=== PATIENT | male | born 1945 | race Caucasian/White ===

== ENCOUNTER → 2016-04-26 | Outpatient (CLI) | payer OTHER ==
[2016-04-26 11:07] LABS: Blood Urea Nitrogen 15 mg/dL (9-20); Non-African American GFR(MDRD) >60 (>60 ml/min/1.73 sqM)
--- NOTE | 2016-04-26 13:48 | CT ---
EXAMINATION TYPE: CT chest abdomen w con DATE OF EXAM: 04/26/2016 11:57 AM COMPARISON: Outside chest CT July 07, 2015. Older CTs back to November 29, 2012. HISTORY: Follow up radiation treatment per patient for lung cancer. CT DLP: 634 mGycm. Automated Exposure Control for Dose Reduction was Utilized. CONTRAST: CT scan of the thorax and abdomen are performed with oral and with IV Contrast, patient injected with 100 mL of Omnipaque 300. FINDINGS: LUNGS: Mild to moderate apical scarring and pleural thickening bilaterally is redemonstrated. There i s background of mild emphysematous change seen. Scarlike opacity or nodule is redemonstrated right up per to midlung measuring 2.4 x 1.3 cm on current study image 28 not significantly changed from most r ecent chest CT and more prominent from original 2013 CT. No new parenchymal nodule or mass is present bilaterally. No pleural effusion or pneumothorax is seen. Tracheobronchial tree is patent. MEDIASTINUM: There are no greater than 1 cm hilar or mediastinal lymph nodes. No cardiomegaly or pe ricardial effusion is seen. Mild to moderate mixed plaque in the thoracic aorta is redemonstrated. M ore prominent concentric noncalcified plaque at origin of right brachiocephalic artery is stable caus ing stenosis approaching but under 50% OTHER: No additional significant abnormality is seen. LIVER/GB: There is stable 1.1 cm cyst hepatic dome on axial image 55. Additional smaller cysts and mcmahon bcentimeter lesions are stable and presumed benign. PANCREAS: No significant abnormality is seen. SPLEEN: No significant abnormality is seen. ADRENALS: No significant abnormality is seen. KIDNEYS: Prominent retroperitoneal fat is noted. Mild nonspecific perinephric fat stranding or fluid is seen, favor product of chronic medical renal disease. BOWEL: Small hiatal hernia is noted. LYMPH NODES: No greater than 1cm abdominal lymph nodes are appreciated. OSSEOUS STRUCTURES: No significant abnormality is seen. OTHER: No significant additional abnormality is seen. IMPRESSION: Spiculated nodular opacity right midlung is felt unchanged from most recent outside chest CT. No new mass or adenopathy is noted. RECIST CRITERIA: STABLE DISEASE
== END ==
LOC: RADCTMAIN 10:24
PROVIDERS: ATTEND Radiology Radiation Oncology
DX: C34.11 Malignant neoplasm of upper lobe, right bronchus or lung (principal)
CPT/HCPCS: 82565; 84520; 71260; 74160; 36415; Q9967

== ENCOUNTER 2016-07-15 10:01 | Day surgery (SDC) | payer OTHER ==
[2016-07-12 08:40] VITALS: BMI 24.7
[~2016-07-15 10:01] MED LIST: ACETAMINOPHEN TAB 500 MG TAB PO ONE; DEXAMETHASONE SOD PHOSPHATE 10 MG/ML 1 ML VIAL IV ONE; DEXAMETHASONE SOD PHOSPHATE 4 MG/ML 1 ML VIAL IV ONE; FAMOTIDINE 20 MG/2 ML VIAL IV ONE; HYDROmorphone 1 MG/ML 1 ML SYRINGE IVP PRN; LACTATED RINGERS 1,000 ML IV SCH; LIDOCAINE 1% 20 ML VIAL (10MG/ML) FOR IV START INTRADERMA PRN; MIDAZOLAM 2 MG/2 ML VIAL IV PRN; ONDANSETRON 4 MG/2 ML VIAL IVP ONE; SCOPOLAMINE 1.5MG/72HR PATCH TRANSDERM ONE; ceFAZolin 1,000 MG in DEXTROSE/WATER 1 50ML.BAG IV ONE
[2016-07-15] MEDS ORDERED: LACTATED RINGERS 1,000 ML IV ONE ×3 (10:49→14:01)
[2016-07-15 11:16] LABS: INR 1.2 (<1.1); Prothrombin Time 11.5 sec (9.0-12.0)
[2016-07-15] MEDS ORDERED: LIDOCAINE 1% INJ 10MG/ML (20 ML MDV) ONE (12:42)
[2016-07-15] MEDS ORDERED: fentaNYL (PF) 50 MCG/ML 2 ML AMP ONE (12:42)
[2016-07-15] MEDS ORDERED: PHENYLEPHRINE-0.9% NACL SYG 1 MG/10 ML SYRINGE ONE (12:42)
[2016-07-15] MEDS ORDERED: PROPOFOL 10 MG/ML 20 ML VIAL IV ONE (12:42)
[2016-07-15] MEDS ORDERED: MIDAZOLAM 2 MG/2 ML VIAL ONE (12:42)
[2016-07-15] MEDS ORDERED: ePHEDrine 50 MG/ML 1 ML AMP ONE (12:42)
[2016-07-15] MEDS ORDERED: EPINEPHrine 1 MG/ML (MDV) 30 ML VIAL IRRIGATION ONE (13:21)
[2016-07-15] MEDS ORDERED: LIDOCAINE 1%-EPI 1:100,000 20 ML VIAL SQ ONE ×2 (13:21)
[2016-07-15] MEDS ORDERED: BUPIVACAIN-EPI 0.5%-1:200,000 30 ML VIAL SQ ONE ×2 (13:21)
[2016-07-15] MEDS ORDERED: FLUORESCEIN STRIPS 1 MG STRIP MISCELLANE ONE (13:22)
[2016-07-15 14:18] VITALS: RESP 16; TEMP 98
--- NOTE | 2016-07-15 14:32 | P.OP ---
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 Implants: Anesthesia: GETA Surgeon: Nitin Lopez Estimated Blood Loss (ml): 5 Pathology: none sent Condition: stable Disposition: PACU Indications for Procedure: This patient had a laryngectomy and had a tracheoesophageal fistula produced with a voice prosthesis that he has not been using. He's been relying on esophageal speech which has worked well for him. This patient has a very large prosthesis and placed its chronically leaking any is aspirating and would like to have the prosthesis removed and the fistula closed. All risks, benefits, and alternative therapies were discussed in detail. Consent was obtained and all questions were answered. Operative Findings: Infected prosthesis removed with a large amount of granulation tissue. Patient had a very large fistula that was closed in a multilayered closure with use of an AlloDerm graft Description of Procedure: Patient was taken to the operative room and placed in the supine position. The patient was intubated through the tracheal stoma with a #5 TAP OUT OPERATOR tube. We did a sterile prep and drape to his neck and identified a very large indwelling prosthesis that had a large amount of granulation tissue. We removed the prosthesis and we also removed the granulation tissue. This allowed us to visualize the very large tracheal esophageal fistula that the patient has. We made a vertical incision encompassing the fistula and elevated flaps and multilayered fashion we elevated mucosal flaps from the trachea tracheal cartilage and then mucosal flaps from the esophagus. After we did wide undermining all directions and flaps were elevated we closed the esophageal mucosa and a canal stitch fashion. After the closure was accomplished a very tight mucosal seal was identified. We then placed a tie buyer design allograft between the mucosa and the cartilage. We closed the overlying tracheal mucosa in an interrupted type fashion utilizing 5 and 4-0 Vicryl. The bilateral mucosal flaps were rotated into position her very good closure and a very tight seal was obtained. We did utilized FloSeal for hemostasis. The patient tolerated this well and follow-up will be in the office in 1 week. The patient is to be on a pured diet. He is to rest with his head elevated.
[2016-07-15 15:38] VITALS: BP 122/68; PULSE 91
== END 2016-07-15 16:11 | disposition home or self-care (01) ==
LOC: OR 10:01
PROVIDERS: ATTEND Otolaryngology
DX: J95.02 Infection of tracheostomy stoma (principal); I10 Essential (primary) hypertension; I48.91 Unspecified atrial fibrillation; Z79.01 Long term (current) use of anticoagulants; Z79.899 Other long term (current) drug therapy; Z87.891 Personal history of nicotine dependence; Z85.118 Personal history of other malignant neoplasm of bronchus and lung
CPT/HCPCS: 85610; 31825; C1762; C1763; J0171; J2250; J1100; J2405; J2001; J3010; J0690; J2370; J2704

== ENCOUNTER → 2016-07-28 | Outpatient (CLI) | payer OTHER ==
[2016-07-28 11:35] LABS: Blood Urea Nitrogen 27 mg/dL (9-20); Non-African American GFR(MDRD) >60 (>60 ml/min/1.73 sqM)
--- NOTE | 2016-07-28 12:22 | CT ---
EXAMINATION TYPE: CT chest w con DATE OF EXAM: 07/28/2016 COMPARISON: Previous study dated 04/26/2016 HISTORY: Follow up on lung cancer CT DLP: 621 mGycm Automated exposure control for dose reduction was used. CONTRAST: CT scan of the chest is performed with IV Contrast, patient injected with 100 mL of Omnipaque 300. FINDINGS: Spiculated mass in the posterior segment of the right upper lobe previously measured 2.4 x 1.3 cm. Today measures 2.4 x 1.8 cm. There are additional areas of spiculation in the superior segmen t of the right lower lobe. These were not present previously. The largest measures 1.2 x 2 cm. The le ft-sided lesion is seen. There is no significant axillary, mediastinal or hilar adenopathy. There is no pleural or pericardial fluid. The heart is not enlarged. There are coronary artery and other vascular calcifications. There are multiple cystic lesions within the liver. These appear unchanged. Visualized portions of th e upper abdomen appear otherwise normal. There is hypertrophic spondylosis within the spine. IMPRESSION: 1. SLIGHT CHANGE IN MORPHOLOGY OF THE PATIENT'S SPICULATED MASS IN THE POSTERIOR SEGMENT OF THE RIGHT UPPER LOBE WITHOUT SIGNIFICANT INCREASE IN SIZE. 2. NEW SPICULATED DENSITY IN THE SUPERIOR SEGMENT OF THE RIGHT LOWER LOBE. 3. MULTIPLE CYSTIC APPEARING LESIONS WITHIN THE LIVER. THESE COULD BE CONFIRMED WITH ULTRASOUND.
== END | disposition home or self-care (01) ==
LOC: RADCTMAIN 10:59
PROVIDERS: ATTEND Radiology Radiation Oncology
DX: R91.8 Other nonspecific abnormal finding of lung field (principal); J98.4 Other disorders of lung; C34.11 Malignant neoplasm of upper lobe, right bronchus or lung
CPT/HCPCS: 82565; 84520; 71260; 36415; Q9967

== ENCOUNTER → 2016-09-11 | Outpatient (CLI) | payer OTHER ==
--- NOTE | 2016-09-13 08:37 | PE ---
EXAMINATION TYPE: PET CT fusion skull to thigh DATE OF EXAM: 09/11/2016 COMPARISON: Most recent PET/CT January 03, 2016. Recent CT chest 03/30/2016. Recent CT chest and abdom en April 26, 2016. HISTORY: Right-sided Lung cancer progress study after biopsy 2015, completed radiation treatment 2016 . TECHNIQUE: Following the intravenous administration of 14.03 mCi of F-18 FDG, whole body images are performed from the skull base to the midthigh. Images are reviewed on the computer in the coronal, a xial, and sagittal planes. Reconstructed rotating images are created on independent workstation and reviewed on the computer. A localization and attenuation correction CT is performed in conjunction with the PET scan. SCAN: Subsequent Scan FINDINGS: SKULL BASE AND NECK: No new suspicious hypermetabolic uptake is seen in the neck. CHEST, MEDIASTINUM, AND HILAR REGION: There is more diffuse irregular consolidation in the right midl li extending from hilum to periphery with new tiny pleural fluid collection, no abnormal hypermetabo lic uptake is seen currently. Focus of abnormal hypermetabolic uptake at site of total laryngectomy and neopharynx formation on axi al image 57 is stable presumed postsurgical. ABDOMEN AND PELVIS: No new areas of abnormal hypermetabolic uptake is seen in the abdomen or pelvis. OSSEOUS STRUCTURES: No suspicious hypermetabolic uptake is seen in osseous structures. OTHER CT: Rightward nasal septal deviation is redemonstrated. There is moderate calcified plaque in bilateral carotid bulbs redemonstrated. There is background mild to moderate emphysematous change redemonstrated. Coronary artery calcification is again seen which is noted marker for coronary artery disease. There is moderate calcified plaque in the ascending aorta redemonstrated. There is 1 cm simple hepatic cyst anterior hepatic dome on axial image 115 redemonstrated. A similar lesion is redemonstrated posterior segment right hepatic lobe inferiorly on axial image 146. Nonspecific perinephric fat stranding is redemonstrated presumed product of chronic medical renal dis ease. Prostate gland remains mildly enlarged bulging on bladder base suspicious for BPH. There is moderate to severe calcified atherosclerotic change of the abdominal aorta redemonstrated. T here is densely calcified plaque at right common femoral artery redemonstrated near axial image 225. There is redemonstration of moderate sized fat-containing left inguinal hernia. Multilevel spurring in the spine is again seen. IMPRESSION: Increased consolidation without suspicious hypermetabolic uptake is seen currently in the right midlung presumed to reflect product of treatment change including atelectasis, underlying infi ltrate is not excluded. No residual hypermetabolic tumor or metastatic disease is clearly seen on cur rent study.
== END | disposition home or self-care (01) ==
LOC: RADPETMAIN 11:14
PROVIDERS: ATTEND Radiology Radiation Oncology
DX: C34.11 Malignant neoplasm of upper lobe, right bronchus or lung (principal)
CPT/HCPCS: 78815; A9552

== ENCOUNTER → 2017-03-14 | Outpatient (CLI) | payer OTHER ==
[2017-03-14 11:24] LABS: Blood Urea Nitrogen 15 mg/dL (9-20)
--- NOTE | 2017-03-14 12:41 | CT ---
EXAMINATION TYPE: CT chest w con DATE OF EXAM: 03/14/2017 COMPARISON: Prior chest CT 11/15/2016 HISTORY: Lung cancer CT DLP: 259.30 mGycm Automated exposure control for dose reduction was used. CONTRAST: CT scan of the chest is performed with IV Contrast, patient injected with 100 ml mL of Omnipaque 300. FINDINGS: LUNGS: The abnormal attenuation in the right upper lobe with pleural extension laterally as on prior exam is again noted and shows a similar appearance. No endobronchial lesion, pleural or pericardial e ffusion. No additional lung mass evident. No mediastinal, axillary, or hilar adenopathy. Tracheostomy is present with a similar appearance to prior exam. The proximal right common carotid artery stenosi s, atheromatous change is stable. Coronary artery calcifications are present. Upper abdomen shows a s table appearance. Suspect a small hiatal hernia is present. MEDIASTINUM: There are no greater than 1 cm hilar or mediastinal lymph nodes. No pericardial effusi on is seen. AORTA: No additional significant abnormality is seen. OTHER: No additional significant abnormality is seen. IMPRESSION: Essentially stable posttreatment changes.
== END | disposition home or self-care (01) ==
LOC: RADCTMAIN 10:44
PROVIDERS: ATTEND Radiology Radiation Oncology
DX: C34.11 Malignant neoplasm of upper lobe, right bronchus or lung (principal)
CPT/HCPCS: 82565; 84520; 71260; 36415; Q9967

== ENCOUNTER → 2017-04-27 | Outpatient (CLI) | payer OTHER | END | disposition home or self-care (01) | LOC: RADUSWWP 08:50 | PROVIDERS: ATTEND Family Medicine | DX: I73.9 Peripheral vascular disease, unspecified (principal) | CPT/HCPCS: 93923 ==

== ENCOUNTER → 2017-06-13 | Outpatient (CLI) | payer OTHER ==
--- NOTE | 2017-06-13 11:33 | CT ---
EXAMINATION TYPE: CT chest w con DATE OF EXAM: 06/13/2017 COMPARISON: 03/14/2017 and 11/15/2016 HISTORY: 72-year-old male Follow up to Rt upper lobe lung Cancer TECHNIQUE: Contiguous axial scanning of the chest after the administration of 100 mL of Isovue 300. Coronal/sagittal reconstructions performed. CT DLP: 280.3mGycm. Automatic exposure control utilized for a dose reduction. FINDINGS: Tracheostomy stoma. Heart is normal size without pericardial effusion. Coronary vessel calcifications are present and are remarkable for coronary artery disease. Aorta normal caliber. Redemonstrated is circumferential wall thickening and narrowing of the proximal brachiocephalic artery causing mild narrowing. Redemonstrated is moderate to severe focal narrowing of the proximal right common carotid artery, axial image 13. No thoracic lymphadenopathy by CT size criteria. Stable bandlike consolidation particularly in the right upper lobe extending from the hilum similar w ith some additional scarring along the right mid lung. No new consolidation or pleural effusion. Mild biapical pleural-parenchymal scarring. Small hiatal hernia. Stable 1.3 cm cyst anterior mid liver and also inferior right hepatic lobe. Mode rate atherosclerotic calcifications in the abdominal aorta. Bones: Endplate spondylosis mid to lower thoracic spine. New superior endplate Schmorl's node of T5 a s compared to 03/14/2017. IMPRESSION: 1. Stable bandlike opacity right upper lobe and right midlung suggesting posttreatment change. No belgica dence for disease recurrence. 2. An age indeterminate superior endplate Schmorl's node of T5 but new as compared to 03/14/2017. Jin elate for any pain at this level. 3. Stable moderate to severe focal stenosis of the proximal right common carotid artery. 4. Small hiatal hernia.
== END | disposition home or self-care (01) ==
LOC: RADCTMAIN 10:06
PROVIDERS: ATTEND Radiology Radiation Oncology
DX: C34.11 Malignant neoplasm of upper lobe, right bronchus or lung (principal); R91.8 Other nonspecific abnormal finding of lung field; K44.9 Diaphragmatic hernia without obstruction or gangrene; I65.21 Occlusion and stenosis of right carotid artery
CPT/HCPCS: 82565; 84520; 71260; 36415; Q9967

== ENCOUNTER → 2017-09-21 | Outpatient (CLI) | payer OTHER ==
[2017-09-21 11:15] LABS: Blood Urea Nitrogen 14 mg/dL (9-20)
--- NOTE | 2017-09-21 12:21 | CT ---
EXAMINATION TYPE: CT chest w con DATE OF EXAM: 09/21/2017 COMPARISON: Chest CT June 13, 2017 and older studies. PET CT September 11, 2016 and older studies. HISTORY: Malignant neoplasm right upper lobe right bronchus of lung. CT DLP: 237.7 mGycm. Automated Exposure Control for Dose Reduction was Utilized. TECHNIQUE: CT scan of the thorax is performed following with IV Contrast, patient injected with 100 mL of Isovue M300. FINDINGS: LUNGS: There is stable right suprahilar scarring centered near axial image 18 through 24 extending po steriorly and inferiorly redemonstrated not significantly changed from most recent CT. Mild to modera te focal bronchiectasis at this level is redemonstrated. No new suspicious nodule or mass is present. No pleural effusion or pneumothorax is seen. MEDIASTINUM: There are no greater than 1 cm hilar or mediastinal lymph nodes. No cardiomegaly or pe ricardial effusion is seen. Coronary artery calcification is redemonstrated which is noted marker fo r coronary artery disease. There is stable tracheostomy stoma axial image 9. There is moderate calcif ied atherosclerotic change of ascending aorta with less prominent plaque throughout visualized remain syd of aorta. Noncalcified plaque at origin of great vessels and arch is redemonstrated. OTHER: Occasional hypodense lesions throughout liver favoring simple cysts are redemonstrated and sta ble. Moderate to severe multilevel spurring in thoracic spine is redemonstrated. Redemonstration of p rominent Schmorl node superior T5 endplate with diffuse sclerosis involving T5 vertebra, there appear s to be vertical lucency sagittal image 59 redemonstrated. Suspect subacute or chronic fracture. This is not significantly changed from most recent CT. IMPRESSION: Stable posttreatment changes to the right lung. No new suspicious mass or adenopathy iden tified.
== END | disposition home or self-care (01) ==
LOC: RADCTMAIN 10:32
PROVIDERS: ATTEND Radiology Radiation Oncology
DX: C34.11 Malignant neoplasm of upper lobe, right bronchus or lung (principal)
CPT/HCPCS: 82565; 84520; 71260; 36415; Q9967

== ENCOUNTER 2017-09-28 09:49 | Day surgery (SDC) | payer OTHER ==
[2017-09-20 13:50] VITALS: BMI 24.3
[~2017-09-28 09:49] MED LIST changes: -ACETAMINOPHEN TAB 500 MG TAB PO ONE; +CYCLOPENTOLATE 1% OPHTH SOLN 2 ML BTL OP ONE; -DEXAMETHASONE SOD PHOSPHATE 10 MG/ML 1 ML VIAL IV ONE; -DEXAMETHASONE SOD PHOSPHATE 4 MG/ML 1 ML VIAL IV ONE; -FAMOTIDINE 20 MG/2 ML VIAL IV ONE; -HYDROmorphone 1 MG/ML 1 ML SYRINGE IVP PRN; +MOXIFLOXACIN HCL 0.5% DROPS 3 ML BTL OP ONE; -ONDANSETRON 4 MG/2 ML VIAL IVP ONE; +PHENYLEPHRINE 2.5% OPHTH DRP 2ML OP NR; -SCOPOLAMINE 1.5MG/72HR PATCH TRANSDERM ONE; +TETRACAINE 0.5% OPHTH (PF) DROPS 4 ML BTL OP ONE; +TIMOLOL 0.5% OPHTH DROPS 5 ML BTL OP ONE; -ceFAZolin 1,000 MG in DEXTROSE/WATER 1 50ML.BAG IV ONE
[2017-09-28] MEDS ORDERED: CYCLOPENTOLATE 1% OPHTH SOLN 2 ML BTL LEFT EYE ONE (11:40)
[2017-09-28 11:56] VITALS: TEMP 97.8
[2017-09-28] MEDS ORDERED: FAMOTIDINE 20 MG/2 ML VIAL IVP ONE (12:14)
[2017-09-28] MEDS ORDERED: fentaNYL (PF) 50 MCG/ML 2 ML AMP ONE (12:36)
[2017-09-28] MEDS ORDERED: MIDAZOLAM 2 MG/2 ML VIAL ONE (12:36)
[2017-09-28] MEDS ORDERED: BALANCED SALT IRRIG SOLN COMB2 15 ML IRRIG.SOLN IRRIGATION ONE (12:51)
[2017-09-28] MEDS ORDERED: EPINEPHrine (PF) 0.3 ML in BALANCED SALT IRRIG SOLN COMB2 500 ML IRRIGATION ONE (12:51)
[2017-09-28] MEDS ORDERED: LIDOCAINE 1% (PF) 10MG/ML VIAL SQ ONE (12:52)
[2017-09-28] MEDS ORDERED: DUOVISC KIT (GREEN BOX) INTRAOCULA ONE (12:52)
[2017-09-28] MEDS ORDERED: EPINEPHrine 1 MG/ML 1 ML AMP IRRIGATION ONE (12:58)
--- NOTE | 2017-09-28 13:15 | P.OP ---
Date of Procedure: 09/28/17 Preoperative Diagnosis: NS & CS Postoperative Diagnosis: NS & CS & PXS Procedure(s) Performed: PIOL, OS & CTR placement Implants: PCB00 20.00 & [id number] Anesthesia: MAC Surgeon: Venkata Anna Estimated Blood Loss (ml): 0 Pathology: none sent Condition: stable Disposition: same day Indications for Procedure: blurry vision Operative Findings: No complications
[2017-09-28 13:57] VITALS: BP 158/88; PULSE 74; RESP 16
--- NOTE | 2017-09-28 17:34 | OP ---
OPERATIVE REPORT DATE OF SURGERY: 09/28/2017. PROCEDURES: Phacoemulsification of cataract and intraocular lens implant of the left eye. PREOPERATIVE DIAGNOSES: Nuclear sclerosis and cortical sclerosis, posterior. POSTOPERATIVE DIAGNOSES: Nuclear sclerosis, cortical sclerosis and posterior pseudoexfoliation. SURGEON: Dr. Venkata Anna. ANESTHESIA: Topical. ESTIMATED BLOOD LOSS: None. SPECIMEN TAKEN: None. NARRATIVE: After obtaining the appropriate consent, the patient was brought to the operating room. There he was placed on cardiac monitoring, prepped and draped in the usual sterile manner. He was approached from his left temporal side and at the 5 o'clock position a 1.1 mm stab blade was used to create a paracentesis port. Through this opening 1% Xylocaine with 1:1000 epinephrine and balanced salt solution in a ratio of 1:2:1 was injected into the anterior chamber. This was followed by stabilization of the anterior chamber with Viscoat. At the 3 o'clock position, a 2.5 mm keratome was used to create a self-sealing corneal flap incision in a Langerman's fashion. It was identified at this point that the patient was demonstrating pseudoexfoliation basically due to the patient's exposure to Flomax in the past. I have never been able to adequately see the anterior capsule of the lens and with adequate dilation today, pseudoexfoliation was definitely noted. A cystotome was then introduced to begin a continuous tear capsulorrhexis which was completed using the Utrata forceps. Hydrodissection and hydrodelineation of the lens was accomplished with balanced salt solution. Phacoemulsification lens utilizing phaco chop was accomplished in 33.73 seconds at 11% power. Additional Xylocaine, epinephrine and BSS was injected into the anterior chamber and this was followed by removal of the remaining cortex under irrigation aspiration along with careful polishing of the posterior capsule in capsule vacuum mode. Provisc was then used to stabilize the capsular bag and an THUY [id number] 13 mm capsular tension ring was inserted into the capsule without difficulty. This was followed by placement of a of an THUY PCP00 20.0 diopter posterior chamber intraocular lens into the lens bag without difficulty. The remaining viscoelastic was cleaned up in and around the intra- ocular lens as well as the anterior chamber. The eye was then brought to normal intraocular pressures through the paracentesis port with balanced salt solution. The incisions were confirmed watertight. He then received 2 drops of 0.5% timolol followed by 2 drops of Vigamox, was then lightly patched and shielded in the usual manner. There were no complications from the procedure. He tolerated the procedure well and was returned to outpatient recovery in good condition. BRYAN / JOAN: [id number] /
== END 2017-09-28 14:12 | disposition home or self-care (01) ==
LOC: OR 09:49
PROVIDERS: ATTEND Ophthalmology
DX: H25.13 Age-related nuclear cataract, bilateral (principal); H25.013 Cortical age-related cataract, bilateral; H00.026 Hordeolum internum left eye, unspecified eyelid; H00.023 Hordeolum internum right eye, unspecified eyelid; H52.13 Myopia, bilateral; H52.4 Presbyopia; I10 Essential (primary) hypertension; I48.91 Unspecified atrial fibrillation; Z79.01 Long term (current) use of anticoagulants; Z85.118 Personal history of other malignant neoplasm of bronchus and lung; E07.9 Disorder of thyroid, unspecified; Z87.891 Personal history of nicotine dependence; E78.5 Hyperlipidemia, unspecified; N40.0 Benign prostatic hyperplasia without lower urinary tract symptoms; Z79.890 Hormone replacement therapy; Z79.899 Other long term (current) drug therapy; Z79.2 Long term (current) use of antibiotics
CPT/HCPCS: 66984; L8610; C1780; J2250; J0171 ×2; J3010; J2001

== ENCOUNTER 2017-12-21 08:49 | Day surgery (SDC) | payer OTHER ==
[2017-12-15 15:21] VITALS: BMI 24.0
[~2017-12-21 08:49] MED LIST changes: -CYCLOPENTOLATE 1% OPHTH SOLN 2 ML BTL OP ONE; +HYDROmorphone 1 MG/ML 1 ML SYRINGE IVP PRN; -LIDOCAINE 1% 20 ML VIAL (10MG/ML) FOR IV START INTRADERMA PRN; -MIDAZOLAM 2 MG/2 ML VIAL IV PRN; -PHENYLEPHRINE 2.5% OPHTH DRP 2ML OP NR
[2017-12-21 09:19] VITALS: TEMP 97.6
[2017-12-21] MEDS: PHENYLEPHRINE 2.5% OPHTH DRP 2ML OP NR ×3 (09:21→09:33)
[2017-12-21] MEDS: CYCLOPENTOLATE 1% OPHTH SOLN 2 ML BTL OP ONE ×3 (09:24→09:36)
[2017-12-21] MEDS ORDERED: fentaNYL (PF) 50 MCG/ML 2 ML AMP ONE (10:15)
[2017-12-21] MEDS ORDERED: MIDAZOLAM 2 MG/2 ML VIAL ONE (10:15)
[2017-12-21] MEDS ORDERED: EPINEPHrine (PF) 0.3 ML in BALANCED SALT IRRIG SOLN COMB2 500 ML IRRIGATION ONE ×4 (10:24)
[2017-12-21] MEDS ORDERED: DUOVISC KIT (GREEN BOX) INTRAOCULA ONE (10:30)
[2017-12-21] MEDS ORDERED: LIDOCAINE 1% (PF) 10MG/ML VIAL MISCELLANE ONE (10:30)
[2017-12-21] MEDS ORDERED: BALANCED SALT IRRIG SOLN COMB2 15 ML IRRIG.SOLN IRRIGATION ONE (10:30)
--- NOTE | 2017-12-21 10:49 | P.OP ---
Date of Procedure: 12/21/17 Preoperative Diagnosis: NS & CS Postoperative Diagnosis: same Procedure(s) Performed: PIOL, OD Implants: PCB00 20.0 Anesthesia: MAC Surgeon: Venkata Anna Estimated Blood Loss (ml): 0 Pathology: none sent Condition: stable Disposition: same day Indications for Procedure: blurry vision Operative Findings: no complications
[2017-12-21 10:52] VITALS: PULSE 66
[2017-12-21 11:21] VITALS: BP 129/44; RESP 18
--- NOTE | 2017-12-21 16:17 | OP ---
OPERATIVE REPORT DATE OF SURGERY: 12/21/2017. PROCEDURE: Phacoemulsification of cataract and intraocular lens implant of the right eye. PREOPERATIVE DIAGNOSIS: Nuclear sclerosis and cortical sclerosis, right eye. ESTIMATED BLOOD LOSS: Zero. SPECIMEN TAKEN: None. NARRATIVE: After obtaining the appropriate consent, the patient was brought to the Operating Room where the patient was placed under cardiac monitoring and prepped and draped in the usual sterile manner. At the 11 o'clock position a 15 degree super sharp blade was used to create a paracentesis followed by instillation of 1% Lidocaine MPF epinephrine 1:1000 MPF with balanced salt solution in a ratio of 1:2:1 into the anterior chamber. This was followed by Duovisc to stabilize the anterior chamber. At the 9 o'clock position a self-sealing corneal flap incision was created using 2.8 mm anne keratome. A cystotome was used to initiate a continuous tear capsulorrhexis which was completed with the Utrata forceps. A Binkhorst cannula was used to hydrodissect the lens nucleus followed by hydrodelineation. Phacoemulsification of the lens was performed utilizing phaco chop in 31.98 seconds at 16% power. The remaining cortical material was removed using the irrigation aspiration mode followed by additional 1% Xylocaine MPF into the anterior chamber followed by viscoelastic to stabilize the capsular bag. An THUY PCB00 20.0 diopters posterior chamber lens was placed into the capsular bag without difficulty. The remaining viscoelastic material was removed from the anterior chamber with the irrigation/aspiration. Balanced salt solution was used to normalize the intraocular pressure. The incision was checked for watertight integrity. The patient then received two drops of 0.5% timolol followed by two drops Vigamox, was lightly patched and shielded in the usual manner. There were no complications from the procedure. The patient tolerated the procedure well and was returned to recovery in good condition. MMODL / IJN: [id number] /
== END 2017-12-21 11:29 | disposition home or self-care (01) ==
LOC: OR 08:49
PROVIDERS: ATTEND Ophthalmology
DX: H25.11 Age-related nuclear cataract, right eye (principal); H25.011 Cortical age-related cataract, right eye; H00.023 Hordeolum internum right eye, unspecified eyelid; H00.026 Hordeolum internum left eye, unspecified eyelid; H52.13 Myopia, bilateral; H52.4 Presbyopia; Z98.49 Cataract extraction status, unspecified eye; Z96.1 Presence of intraocular lens; I10 Essential (primary) hypertension; I48.91 Unspecified atrial fibrillation; E07.9 Disorder of thyroid, unspecified; E78.5 Hyperlipidemia, unspecified; N40.0 Benign prostatic hyperplasia without lower urinary tract symptoms; Z79.890 Hormone replacement therapy; Z79.2 Long term (current) use of antibiotics; Z79.01 Long term (current) use of anticoagulants; Z79.899 Other long term (current) drug therapy; Z90.02 Acquired absence of larynx; Z85.21 Personal history of malignant neoplasm of larynx; Z85.118 Personal history of other malignant neoplasm of bronchus and lung; Z92.3 Personal history of irradiation; Z87.891 Personal history of nicotine dependence
CPT/HCPCS: 66984; C1780; J2250; J0171; J3010; J2001

== ENCOUNTER → 2018-02-01 | Outpatient (CLI) | payer OTHER ==
--- NOTE | 2018-02-01 14:16 | CT ---
EXAMINATION TYPE: CT chest wo/w con DATE OF EXAM: 02/01/2018 COMPARISON: PET/CT dated 09/06/[address] chest dated 09/21/2017 HISTORY: Follow up lung Cancer CT DLP: 981 mGycm. Automated Exposure Control for Dose Reduction was Utilized. TECHNIQUE: CT scan of the thorax is performed following without and with IV Contrast, patient inject ed with 100 mL of Isovue 300. FINDINGS: LUNGS: There are similar thickness of the curvilinear bandlike fibrosis measuring up to 1.0 cm on ser ies 4 image 25, also measuring up to 1.0 cm on the prior exam of 09/21/2017. Traction bronchiectasis an d soft tissue fullness in the right perihilar region are unchanged from the prior. Findings again sug gest posttreatment change. Multifocal pleural thickening posteriorly along the right lung apex is mil d and unchanged. Groundglass density in the superior segment of the right lower lobe also likely repr esent surrounding posttreatment change. No new pulmonary nodule or mass is identified. Minimal left a pical pleural parenchymal thickening is present. Groundglass pulmonary nodule within the left lower l obe is unchanged from the prior on series 4 image 46 measuring 5 mm. This is retrospectively unchange d from the PET/CT of 09/06/2015 and given long-term stability is favored to be benign. There is no ple ural effusion or pneumothorax seen. The tracheobronchial tree is patent. MEDIASTINUM: There are no greater than 1 cm hilar or mediastinal lymph nodes. No pericardial effusi on is seen. Tracheal stoma is redemonstrated. Moderate calcific atheromatous plaquing is seen of the thoracic aorta with extensive three-vessel coronary artery calcifications. Ascending thoracic aorta is within normal limits of size. Right hilar lymph nodes are nonenlarged measuring up to 8 mm OTHER: There is a small hiatal hernia present. Hepatic cyst measures approximately 1.3 cm. Minimal re troperitoneal lipomatosis and nonspecific perinephric fat stranding are noted. Mild multilevel degene rative change of the thoracic spine is again noted. T5 vertebral body vertical lucency suggestive of chronic fracture deformity or Schmorl's node of both superior and inferior endplates is unchanged fro m the prior. IMPRESSION: 1. Stable bandlike fibrosis of the right upper lobe representing posttreatment change. 2. Retrospectively stable 5 mm groundglass pulmonary nodule within the left lower lobe dating back to 2016 favored to be benign. 3. Chronic deformity of the T5 vertebral body. 4. Severe three-vessel coronary artery calcifications.
== END | disposition home or self-care (01) ==
LOC: RADCTMAIN 12:33
PROVIDERS: ATTEND Radiology Radiation Oncology
DX: C34.11 Malignant neoplasm of upper lobe, right bronchus or lung (principal); R91.1 Solitary pulmonary nodule; I25.10 Atherosclerotic heart disease of native coronary artery without angina pectoris; Z92.3 Personal history of irradiation
CPT/HCPCS: 82565; 84520; 71270; 36415; Q9967

== ENCOUNTER → 2018-07-31 | Outpatient (CLI) | payer OTHER ==
[2018-07-31 12:53] LABS: African American GFR (CKD) >90 (>60 ml/min/1.73 sqM); Blood Urea Nitrogen 15 mg/dL (9-20)
--- NOTE | 2018-08-01 03:17 | CT ---
EXAMINATION TYPE: CT chest wo/w con DATE OF EXAM: 07/31/2018 COMPARISON: 02/01/2018 and 06/13/2017 HISTORY: 73-year-old male Follow up lung cancer TECHNIQUE: Contiguous axial scanning of the chest before and after the administration of 100 mL of Is ovue 300. Coronal/sagittal reconstructions performed. CT DLP: 515mGycm. Automatic exposure control utilized for a dose reduction. FINDINGS: Heart upper limits of normal in size without pericardial effusion. Extensive coronary vessel calcific ations are present. Aorta normal caliber with mild atherosclerotic calcifications. Mild atherosclerotic narrowing brachio cephalic artery and severe focal atherosclerotic narrowing proximal right common carotid artery, both stable findings. No thoracic lymphadenopathy by CT size criteria. Stable right upper lobe and mid lung bandlike thickening without any new suspicious masslike nodulari ty. An 8 mm groundglass left lower lobe pulmonary nodule, axial image 45 is more pronounced as compared t o 5 mm on 06/13/2017 Tracheostomy stoma. Small hiatal hernia. Stable cyst anterior mid liver and also inferior right liver lobe. Visualized up per abdomen otherwise shows no gross abnormality. Bones: T5 superior and inferior endplate Schmorl's nodes unchanged. Most severe in plate deformity of T11 also unchanged. IMPRESSION: 1. Stable bandlike thickening right upper lobe and mid lung compatible with site of treated disease. 2. An 8 mm left lower lobe groundglass pulmonary nodule slightly larger as compared to 5 mm on 018. Long-term surveillance recommended to exclude low-grade neoplasm or an area of adenomatous hyper plasia which can serve as a precursor to neoplasm. 3. Stable severe focal stenosis proximal right common carotid artery. 4. Small hiatal hernia.
== END | disposition home or self-care (01) ==
LOC: RADCTMAIN 12:02
PROVIDERS: ATTEND Radiology Radiation Oncology
DX: C34.11 Malignant neoplasm of upper lobe, right bronchus or lung (principal); I65.21 Occlusion and stenosis of right carotid artery; R91.1 Solitary pulmonary nodule; Z92.3 Personal history of irradiation
CPT/HCPCS: 82565; 84520; 71270; 36415; Q9967

== ENCOUNTER → 2019-01-22 | Outpatient (CLI) | payer OTHER ==
--- NOTE | 2019-01-22 10:42 | CT ---
EXAMINATION TYPE: CT chest wo/w con DATE OF EXAM: 01/22/2019 COMPARISON: 07/31/2018 HISTORY: follow up lung cancer CT DLP: 511.4 mGycm. Automated Exposure Control for Dose Reduction was Utilized. TECHNIQUE: CT scan of the thorax is performed following without and with IV Contrast, patient inject ed with 100 mL of Isovue 300. FINDINGS: LUNGS: There is redemonstration of a bandlike opacity involving the right upper lobe radiating from t he right liam with postsurgical change of the right mediastinum. The thickest component is seen on se olivia 7 image 25 is unchanged from the prior. Associated groundglass peripheral opacities and cylindri leandro bronchiectasis are again seen. There is extension into the interlobar fissure with fissural thick ening. The previously seen 8 mm left lower lobe groundglass pulmonary nodule is much less conspicuous than o n the prior exam on series 7 image 46 near the interlobar fissure. No new suspicious nodule is seen. Mild background emphysematous change. MEDIASTINUM: There are no greater than 1 cm hilar or mediastinal lymph nodes. No pericardial effusi on is seen. Moderate calcific atheromatous plaquing of the thoracic aorta and severe coronary artery calcifications again seen. Ostial narrowing of the brachiocephalic artery is also noted on the prior exam. OTHER: Again there is a tracheostomy stoma. Very small hiatal hernia is again noted. T5 Schmorl's nod e changes in endplate change of T11 are stable. Hepatic cysts are again seen with other lesions are t oo small to accurately characterize. IMPRESSION: 1. Posttreatment change of the right upper lobe with stable bandlike fibrosis. 2. Left-sided groundglass subcentimeter pulmonary nodule is less conspicuous than on the prior and se en on exams dating back to 2015, again favored to be benign.
== END | disposition home or self-care (01) ==
LOC: RADCTMAIN 09:00
PROVIDERS: ATTEND Radiology Radiation Oncology
DX: J84.10 Pulmonary fibrosis, unspecified (principal); R91.1 Solitary pulmonary nodule; C34.11 Malignant neoplasm of upper lobe, right bronchus or lung; Z85.21 Personal history of malignant neoplasm of larynx; Z92.3 Personal history of irradiation
CPT/HCPCS: 82565; 84520; 71270; 36415; Q9967

== ENCOUNTER → 2019-08-23 | Outpatient (CLI) | payer OTHER ==
[2019-08-23 10:23] LABS: African American GFR (CKD) >90 (>60 ml/min/1.73 sqM); Blood Urea Nitrogen 13 mg/dL (9-20); Non-African American GFR(CKD) 85 (>60 ml/min/1.73 sqM)
--- NOTE | 2019-08-23 11:14 | CT ---
EXAMINATION TYPE: CT chest wo/w con DATE OF EXAM: 08/23/2019 COMPARISON: 01/22/2019 HISTORY: Larynx CA CT DLP: 471.9 mGycm Automated exposure control for dose reduction was used. CONTRAST: CT scan of the chest is performed without and with IV Contrast, patient injected with 100 mL of Isovu e 300. FINDINGS: LUNGS: Bandlike density right upper lobe emanating from the right hilum postsurgical change noted is essentially unchanged. There is associated cylindrical bronchiectasis. 8 mm left lower lobe groundgla ss nodule is unchanged image 43. No new nodules or masses appreciated. MEDIASTINUM: There are no greater than 1 cm hilar or mediastinal lymph nodes. No pericardial effusi on is seen. Thoracic aorta is of normal caliber. The heart is not enlarged. UPPER ABDOMEN: Simple hepatic cysts peripherally in the left hepatic lobe is stable. Additional simpl e cyst at the inferior tip of the liver is unchanged. OTHER: Tracheostomy stoma redemonstrated. Small hiatal hernia noted. Degenerative changes noted of t he thoracic spine. IMPRESSION: 1. Stable postoperative changes right upper lobe/right hilar region. 2. Stable groundglass nodular density left lower lobe is nonspecific.
== END | disposition home or self-care (01) ==
LOC: RADCTMAIN 09:38
PROVIDERS: ATTEND Radiology Radiation Oncology
DX: R91.1 Solitary pulmonary nodule (principal); C34.11 Malignant neoplasm of upper lobe, right bronchus or lung; Z85.21 Personal history of malignant neoplasm of larynx; Z92.3 Personal history of irradiation; Z98.890 Other specified postprocedural states
CPT/HCPCS: 82565; 84520; 71270; 36415; Q9967

== ENCOUNTER 2020-01-25 17:09 | Inpatient (IN) | payer OTHER ==
[2020-01-25] MEDS ORDERED: DILTIAZEM DRIP BOLUS FROM BAG 1 MG SOLN IV ONE (18:04)
[2020-01-25] MEDS ORDERED: DILTIAZEM 125 MG in SODIUM CHLORIDE 0.9% 100 ML IV SCH (18:15)
--- NOTE | 2020-01-25 18:20 | ED ---
Weakness HPI - General Source: patient Mode of arrival: wheelchair Limitations: no limitations <Alesia Calabrese - Last Filed: 01/25/20 22:03> <Michael Castah Raghav - Last Filed: 01/26/20 22:50> - General Chief complaint: Weakness Stated complaint: weakness Time Seen by Provider: 01/25/20 17:49 - History of Present Illness Initial comments: Patient is a 74-year-old male, with history of A. fib on Coumadin, throat and lung cancer, hypertension, presenting to the emergency Department with complaints of weakness over the past 5 days. Patient states he started feeling weaker on Tuesday night, he had a fall on Tuesday as he tripped over a rug and was slow to get up because he felt so weak. Patient states he did not hit his head during the fall, he has no pains from this fall. Patient states the past few days he has not had energy to come to the hospital to be evaluated. He denies any specific pains anywhere, he is just describing generalized body weakness. He denies any chest pains or shortness of breath, no abdominal pain. He states no nausea or vomiting. He states he has been spitting up coagulated b lood from his stoma. He denies headache, changes in vision, dizziness. He states his last INR was in December and he believes it was 2.3. He states no changes in his medications. Patient has no further complaints at this time. Upon arrival to the ER, patient is febrile 101, pulse is 103, respiratory rate 16, blood pressure is 129/75, 96% on room air. (Alesia Calabrese) - Related Data Home Medications Medication Instructions Recorded Confirmed Folic Acid 1 mg PO DAILY 02/03/16 01/25/20 Levothyroxine Sodium [Synthroid] 88 mcg PO DAILY 02/03/16 01/25/20 Simvastatin [Zocor] 20 mg PO HS 02/03/16 01/25/20 Warfarin [Coumadin] 5 mg PO MOTUWETH 02/03/16 01/25/20 Bacitracin Zinc Oint 1 applic TOPICAL DAILY PRN 09/20/17 01/25/20 Chlorhexidine Gluconate [Periogard] 15 ml PO BID 09/20/17 01/25/20 Warfarin [Coumadin] 2.5 mg PO SUFRSA 09/20/17 01/25/20 Calcium Carb-Vitamin D (Unknown 1 tab PO DAILY 01/25/20 01/25/20 Strength) Carboxymethylcellulose Sodium 1 drop BOTH EYES 5XD PRN 01/25/20 01/25/20 [Refresh Tears] Fluoride (Sodium) [Sodium Fluoride] 1 applic DENTAL TID 01/25/20 01/25/20 Metoprolol Tartrate [Lopressor] 50 mg PO BID 01/25/20 01/25/20 Multivitamins, Thera [Multivitamin 1 tab PO DAILY 01/25/20 01/25/20 (formulary)] Sodium Chloride 0.65% Nasal [Deep 2 spray EA NOSTRIL BID 01/25/20 01/25/20 Sea (Saline)] Previous Rx's Medication Instructions Recorded Apixaban [Eliquis] 5 mg PO BID #60 tab 01/26/20 Allergies Allergy/AdvReac Type Severity Reaction Status Date / Time No Known Allergies Allergy Verified 01/25/20 19:49 Review of Systems ROS Other: All systems not noted in ROS Statement are negative. <Alesia Calabrese - Last Filed: 01/25/20 22:03> ROS Other: All systems not noted in ROS Statement are negative. <Jaki Cast - Last Filed: 01/26/20 22:50> ROS Statement: Those systems with pertinent positive or pertinent negative responses have been documented in the HPI. Past Medical History Past Medical History: Atrial Fibrillation, Cancer, Eye Disorder, Hyperlipidemia, Hypertension, Prostate Disorder, Thyroid Disorder Additional Past Medical History / Comment(s): artificial voice box, throat cancer, lung ca, hx of radiation, occasional SOB., cataract right eye. History of Any Multi-Drug Resistant Organisms: None Reported Additional Past Surgical History / Comment(s): total laryngectomy, bx of lung nodule, left cataract Past Anesthesia/Blood Transfusion Reactions: No Reported Reaction Additional Past Anesthesia/Blood Transfusion Reaction / Comment(s): has had laryngectomy Past Psychological History: No Psychological Hx Reported Smoking Status: Former smoker Past Alcohol Use History: Daily Past Drug Use History: None Reported - Past Family History Mother Family Medical History: Cancer Additional Family Medical History / Comment(s): lung <Alesia Calabrese - Last Filed: 01/25/20 22:03> General Exam Limitations: no limitations <Alesia Calabrese - Last Filed: 01/25/20 22:03> - General Exam Comments Initial Comments: GENERAL: Patient is well-developed and well-nourished. Patient is nontoxic and in no acute distress. HEAD: Atraumatic, normocephalic. EYES: Pupils equal round and reactive to light, extraocular movements intact, sclera anicteric, conjunctiva are normal. Eyelids were unremarkable. ENT: TMs normal, nares patent, oropharynx clear without exudates. Moist mucous membranes. NECK: Normal range of motion, supple without lymphadenopathy or JVD. Artificial voice box LUNGS: Unlabored respirations. Breath sounds clear to auscultation bilaterally and equal. No wheezes rales or rhonchi. HEART: Irregular and fast rate and rhythm without murmurs, rubs or gallops. ABDOMEN: Soft, nontender, normoactive bowel sounds. No guarding, no rebound. No masses appreciated. : Deferred MUSCULOSKELETAL: Normal extremities with adequate strength and normal range of motion, no pitting or edema. No clubbing or cyanosis. NEUROLOGICAL: Patient is alert and oriented x 3. Motor and sensory are also intact. Cranial nerves II through XII grossly intact. Symmetrical smile. Normal speech, normal gait. PSYCH: Normal mood, normal affect. SKIN: Warm, Dry, normal turgor, no rashes or lesions noted. (Alesia Calabrese) Course Vital Signs 01/25/20 01/25/20 01/25/20 17:33 18:22 19:21 Temperature 101 F H Pulse Rate 103 H 109 H 105 H Pulse Rate [ Pulse Oximetery ] Respiratory 16 18 18 Rate Blood Pressure 129/75 159/76 159/75 Blood Pressure [Sitting] O2 Sat by Pulse 96 96 Oximetry 01/25/20 01/26/20 01/26/20 21:24 00:17 03:16 Temperature 99.4 F 98.5 F Pulse Rate 87 72 Pulse Rate [ 80 Pulse Oximetery ] Respiratory 18 18 Rate Blood Pressure 130/64 126/62 Blood Pressure 137/71 [Sitting] O2 Sat by Pulse 98 94 L 94 L Oximetry 01/26/20 01/26/20 01/26/20 03:21 08:00 12:06 Temperature 98.5 F 98.4 F Pulse Rate Pulse Rate [ 80 87 66 Pulse Oximetery ] Respiratory 18 20 18 Rate Blood Pressure Blood Pressure 161/82 143/80 [Sitting] O2 Sat by Pulse 93 L 93 L Oximetry 01/26/20 01/26/20 15:50 17:45 Temperature 99.5 F 98.4 F Pulse Rate Pulse Rate [ 81 89 Pulse Oximetery ] Respiratory 18 19 Rate Blood Pressure Blood Pressure 160/83 163/75 [Sitting] O2 Sat by Pulse 92 L 93 L Oximetry EKG Findings - EKG Comments: EKG Findings:: EKG 17:49: A. fib with RVR, diffuse ST abnormalities, no prior ECG in the system to compare. Ventricular rate 191, QRS duration 60, QT 232. Repeat EKG at 1913, shows sinus tach, no signs of acute ischemia. Ventricular rate 102, NJ interval 166, QT 3:30. <Alesia Calabrese - Last Filed: 01/25/20 22:03> - EKG Comments: EKG Findings:: Repeat EKG at 2226 Demser to normal sinus rhythm with a ventricular rate of 76. NJ interval 178. QRS 70. QTC 445. No acute ST segment elevations or depressions concerning for ischemic changes <Jaki Cast - Last Filed: 01/26/20 22:50> Medical Decision Making - Lab Data Result diagrams: 01/25/20 18:07 01/25/20 18:07 <Alesia Calabrese - Last Filed: 01/25/20 22:03> - Lab Data Result diagrams: 01/25/20 18:07 01/26/20 11:08 <Jaki Cast - Last Filed: 01/26/20 22:50> - Medical Decision Making Patient is a 74-year-old male with history of A. fib on Coumadin, presenting with feeling weakness for the last week. Patient did arrive febrile 101, EKG showed A. fib with RVR with heart rate of 190. He denied having chest pain or shortness of breath, he was sitting comfortably without distress. Cardizem drip was initiated. Asians labs returned normal white count, normal hemoglobin, INR returned greater than 10, kidney function is stable, lactic acid is 2.6, troponin is elevated 0.131. Rapid Covid was negative. Chest x-ray shows right upper lobe infiltrate slightly increased compared to old exam. Patient given vitamin K, IV tylenol. Repeat EKG showed sinus tach. Patient has been resting comfortably. Patient will be admitted for the A. fib with RVR, elevated trop, elevated INR, weakness. Patient is in agreement with this plan of care. Patient was accepted by Dr. Kelley. Case discussed in detail with Dr. Cast. (Alesia Calabrese) I was available for consultation in the emergency department. The history and physical exam were done by the midlevel provider. I was consulted for this patients care. I reviewed the case with the midlevel provider and based on their presentation of the patient, I agree with the assessment, medical decision making and plan of care as documented. Chart was dictated using [employer] dictation software. Attempts were made to correct any dictation errors however some typographical errors may persist. Patient seen during Covid-19 pandemic. (Jaki Cast) - Lab Data Lab Results 01/25/20 01/25/20 01/25/20 Range/Units 18:07 18:07 18:07 WBC 10.4 (3.8-10.6) k/uL RBC 4.82 (4.30-5.90) m/uL Hgb 15.1 (13.0-17.5) gm/dL Hct 42.8 (39.0-53.0) % MCV 88.7 (80.0-100.0) fL MCH 31.3 (25.0-35.0) pg MCHC 35.3 (31.0-37.0) g/dL RDW 12.3 (11.5-15.5) % Plt Count 230 (150-450) k/uL MPV 7.3 Neutrophils % 90 % Lymphocytes % 5 % Monocytes % 3 % Eosinophils % 1 % Basophils % 1 % Neutrophils # 9.4 H (1.3-7.7) k/uL Lymphocytes # 0.5 L (1.0-4.8) k/uL Monocytes # 0.3 (0-1.0) k/uL Eosinophils # 0.1 (0-0.7) k/uL Basophils # 0.1 (0-0.2) k/uL PT 128.3 H (9.0-12.0) sec INR >10.0 H* (<1.2) APTT 52.3 H (22.0-30.0) sec Sodium 133 L (137-145) mmol/L Potassium 4.2 (3.5-5.1) mmol/L Chloride 97 L (98-107) mmol/L Carbon Dioxide 21 L (22-30) mmol/L Anion Gap 15 mmol/L BUN 25 H (9-20) mg/dL Creatinine 1.02 (0.66-1.25) mg/dL Est GFR (CKD-EPI)AfAm 84 (>60 ml/min/1.73 sqM) Est GFR (CKD-EPI)NonAf 72 (>60 ml/min/1.73 sqM) Glucose 126 H (74-99) mg/dL Lactic Ac Sepsis Rflx Plasma Lactic Acid Milton (0.7-2.0) mmol/L Calcium 9.0 (8.4-10.2) mg/dL Magnesium (1.6-2.3) mg/dL Total Bilirubin 1.4 H (0.2-1.3) mg/dL AST 123 H (17-59) U/L ALT 44 (4-49) U/L Alkaline Phosphatase 95 (38-126) U/L Troponin I (0.000-0.034) ng/mL Total Protein 7.5 (6.3-8.2) g/dL Albumin 4.1 (3.5-5.0) g/dL TSH 2.160 (0.465-4.680) mIU/L Coronavirus (PCR) (Not Detectd) 01/25/20 01/25/20 01/25/20 Range/Units 18:07 18:07 18:07 WBC (3.8-10.6) k/uL RBC (4.30-5.90) m/uL Hgb (13.0-17.5) gm/dL Hct (39.0-53.0) % MCV (80.0-100.0) fL MCH (25.0-35.0) pg MCHC (31.0-37.0) g/dL RDW (11.5-15.5) % Plt Count (150-450) k/uL MPV Neutrophils % % Lymphocytes % % Monocytes % % Eosinophils % % Basophils % % Neutrophils # (1.3-7.7) k/uL Lymphocytes # (1.0-4.8) k/uL Monocytes # (0-1.0) k/uL Eosinophils # (0-0.7) k/uL Basophils # (0-0.2) k/uL PT (9.0-12.0) sec INR (<1.2) APTT (22.0-30.0) sec Sodium (137-145) mmol/L Potassium (3.5-5.1) mmol/L Chloride (98-107) mmol/L Carbon Dioxide (22-30) mmol/L Anion Gap mmol/L BUN (9-20) mg/dL Creatinine (0.66-1.25) mg/dL Est GFR (CKD-EPI)AfAm (>60 ml/min/1.73 sqM) Est GFR (CKD-EPI)NonAf (>60 ml/min/1.73 sqM) Glucose (74-99) mg/dL Lactic Ac Sepsis Rflx Plasma Lactic Acid Milton 2.6 H* (0.7-2.0) mmol/L Calcium (8.4-10.2) mg/dL Magnesium 1.9 (1.6-2.3) mg/dL Total Bilirubin (0.2-1.3) mg/dL AST (17-59) U/L ALT (4-49) U/L Alkaline Phosphatase (38-126) U/L Troponin I 0.131 H* (0.000-0.034) ng/mL Total Protein (6.3-8.2) g/dL Albumin (3.5-5.0) g/dL TSH (0.465-4.680) mIU/L Coronavirus (PCR) (Not Detectd) 01/25/20 01/25/20 Range/Units 18:08 18:34 WBC (3.8-10.6) k/uL RBC (4.30-5.90) m/uL Hgb (13.0-17.5) gm/dL Hct (39.0-53.0) % MCV (80.0-100.0) fL MCH (25.0-35.0) pg MCHC (31.0-37.0) g/dL RDW (11.5-15.5) % Plt Count (150-450) k/uL MPV Neutrophils % % Lymphocytes % % Monocytes % % Eosinophils % % Basophils % % Neutrophils # (1.3-7.7) k/uL Lymphocytes # (1.0-4.8) k/uL Monocytes # (0-1.0) k/uL Eosinophils # (0-0.7) k/uL Basophils # (0-0.2) k/uL PT (9.0-12.0) sec INR (<1.2) APTT (22.0-30.0) sec Sodium (137-145) mmol/L Potassium (3.5-5.1) mmol/L Chloride (98-107) mmol/L Carbon Dioxide (22-30) mmol/L Anion Gap mmol/L BUN (9-20) mg/dL Creatinine (0.66-1.25) mg/dL Est GFR (CKD-EPI)AfAm (>60 ml/min/1.73 sqM) Est GFR (CKD-EPI)NonAf (>60 ml/min/1.73 sqM) Glucose (74-99) mg/dL Lactic Ac Sepsis Rflx Y Plasma Lactic Acid Milton (0.7-2.0) mmol/L Calcium (8.4-10.2) mg/dL Magnesium (1.6-2.3) mg/dL Total Bilirubin (0.2-1.3) mg/dL AST (17-59) U/L ALT (4-49) U/L Alkaline Phosphatase (38-126) U/L Troponin I (0.000-0.034) ng/mL Total Protein (6.3-8.2) g/dL Albumin (3.5-5.0) g/dL TSH (0.465-4.680) mIU/L Coronavirus (PCR) Not Detected (Not Detectd) Critical Care Time Critical Care Time: Yes Total Critical Care Time: 35 (Patient arrived in A. fib with RVR, Cardizem drip was initiated. Patient will be admitted.) <Alesia Calabrese - Last Filed: 01/25/20 22:03> Disposition Decision Date: 01/25/20 Decision Time: 21:24 <Alesia Calabrese - Last Filed: 01/25/20 22:03> <Jaki Cast - Last Filed: 01/26/20 22:50> Clinical Impression: Elevated INR, Elevated troponin, Weakness, Lactic acidosis, Atrial fibrillation with RVR Disposition: ADMITTED IP TO THIS HOSP Condition: Stable
[2020-01-25 18:28] LABS: Basophils # (A) 0.1 k/uL (0-0.2); Basophils % (A) 1 %; Eosinophils # (A) 0.1 k/uL (0-0.7); Eosinophils % (A) 1 %; HCT 42.8 % (39.0-53.0); HGB 15.1 gm/dL (13.0-17.5); Lymphocytes # (A) 0.5 k/uL (1.0-4.8); Lymphocytes % (A) 5 %; MCH 31.3 pg (25.0-35.0); MCHC 35.3 g/dL (31.0-37.0); MCV 88.7 fL (80.0-100.0); Mean Platelet Volume 7.3; Monocytes # (A) 0.3 k/uL (0-1.0); Monocytes % (A) 3 %; Neutrophils # (A) 9.4 k/uL (1.3-7.7); Neutrophils % (A) 90 %; Platelet Count 230 k/uL (150-450); RBC 4.82 m/uL (4.30-5.90); RDW 12.3 % (11.5-15.5); WBC 10.4 k/uL (3.8-10.6)
[2020-01-25] MEDS ORDERED: ACETAMINOPHEN TAB 500 MG TAB PO STA (18:34)
[2020-01-25] MEDS ORDERED: SODIUM CHLORIDE 0.9% 1,000 ML IV STA (18:34)
[2020-01-25 18:37] LABS: Albumin 4.1 g/dL (3.5-5.0); Potassium 4.2 mmol/L (3.5-5.1); Total Bilirubin 1.4 mg/dL (0.2-1.3); Total Protein 7.5 g/dL (6.3-8.2)
[2020-01-25 18:52] LABS: Partial Thromboplastin Time 52.3 sec (22.0-30.0); Prothrombin Time 128.3 sec (9.0-12.0)
--- NOTE | 2020-01-25 18:53 | XR ---
EXAMINATION TYPE: XR chest 2V DATE OF EXAM: 01/25/2020 COMPARISON: None HISTORY: Lung cancer. Weakness TECHNIQUE: 2 views FINDINGS: There is 3 x 1 cm linear infiltrate in the lateral right upper lobe. The other lung estrella are clear. Heart size is normal. There are no hilar masses. There is no pleural effusion. There is no mediastinal adenopathy. There are chest leads. IMPRESSION: Right upper lobe infiltrate slightly increased compared to old exam. Normal heart.
[2020-01-25 19:03] LABS: INR >10.0 (<1.2)
[2020-01-25] MEDS ORDERED: PHYTONADIONE ORAL 5 MG/5 ML ORAL.SYRG PO STA (19:15)
[2020-01-25] MEDS ORDERED: ACETAMINOPHEN IV (For NPO) 1,000 MG in EMPTY BAG 1 BAG IVPB ONE (19:21)
[2020-01-25] MEDS: PHYTONADIONE 5 MG in SODIUM CHLORIDE 0.9% 50 ML IVPB STA ×2 (19:49→20:02)
[2020-01-25] MEDS ORDERED: ONDANSETRON 4 MG/2 ML VIAL IVP PRN (21:20)
[2020-01-25] MEDS ORDERED: NALOXONE 0.4 MG/ML 1 ML VIAL IV PRN (21:20)
[2020-01-25] MEDS: SODIUM CHLORIDE 0.9% 1,000 ML IV SCH (23:41)
[2020-01-26 00:57] LABS: INR 2.5 (<1.2)
[2020-01-26] MEDS: LEVOTHYROXINE 88 MCG TAB PO SCH (10:14)
[2020-01-26] MEDS: METOPROLOL TARTRATE 50 MG TAB PO SCH ×2 (10:14→20:08)
[2020-01-26 11:08] LABS: Appearance,Urine Clear (Clear); Bilirubin,Urine Negative (Negative); Blood,Urine Trace (Negative); Color,Urine Yellow; Glucose,Urine (UA) Negative (Negative); Hyaline Casts,Urine 1 /lpf (0-2); Ketones,Urine 3+ (Negative); Leukocyte Esterase,Urine Negative (Negative); Mucus,Urine Few /hpf; Nitrite,Urine Negative (Negative); Protein,Urine 1+ (Negative); RBC,Urine 1 /hpf (0-5); Specific Gravity,Urine 1.029 (1.001-1.035); WBC,Urine 2 /hpf (0-5)
[2020-01-26 11:39] LABS: African American GFR (CKD) >90 (>60 ml/min/1.73 sqM); Anion Gap 8 mmol/L; Blood Urea Nitrogen 17 mg/dL (9-20); Carbon Dioxide 25 mmol/L (22-30); Chloride 102 mmol/L (98-107); Glucose 103 mg/dL (74-99); Non-African American GFR(CKD) >90 (>60 ml/min/1.73 sqM); Potassium 3.7 mmol/L (3.5-5.1); Sodium 135 mmol/L (137-145)
--- NOTE | 2020-01-26 12:27 | P.CRDCN ---
History of Present Illness Consult date: 01/26/20 History of present illness: CHIEF COMPLAINT: A. 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 Patient follows in the office with Dr. Lr. We have been asked to see the patient in consultation for A. fib with RVR and elevated INR. Patient examined this morning at the bedside. Patient states he has been feeli ng weak for the past 5-6 days. He reports falling a couple days ago and having to drag himself into the bathroom or there was a cord. EMS came and helped get the patient off the floor. He declined to come to the emergency room at that time. However he states he continued to feel weak over the past couple days so he finally decided yesterday to come to the emergency room. Patient denies any chest pain or pressure. He denies shortness of breath. He does report coughing up some blood over the past couple days. Patient's INR was found to be greater than 10 on admission to the hospital. He denies any dose changes in his Coumadin recently. EKG upon admission revealed A. fib with RVR. The patient was started on a Cardizem drip. The patient has since converted to sinus rhythm. DIAGNOSTICS: EKG reveals A. fib with RVR Chest xray right upper lobe infiltrate slightly increased compared to old exam. Laboratory data: W BC 10.4. Hemoglobin 15.1. Platelet count 230. INR greater than 10. Repeat 2.5. sodium 133. Potassium 4.2. BUN 25. Creatinine 1.02. Lactic acid 2.6. Repeat 0.6. Troponin 0.131. Current home cardiac medications include Coumadin 2.5 mg Tuesday and 5 mg Tuesday, Zocor 20 mg daily, and metoprolol 50 mg twice a day REVIEW OF SYSTEMS: At the time of my exam: CONSTITUTIONAL: Denies fever or chills. HEENT: Denies blurred vision, vision changes, or eye pain. Denies hemoptysis CARDIOVASCULAR: Denies chest pain, orthopnea, PND or palpitations RESPIRATORY: No shortness of breath. GASTROINTESTINAL: Denies abdominal pain. Denies nausea or vomiting. HEMATOLOGIC: Denies bleeding disorders. GENITOURINARY: Denies any blood in urine. SKIN: Denies pruitis. Denies rash. PHYSICAL EXAM: VITAL SIGNS: Reviewed. GENERAL: Well-developed in no acute distress. HEENT: Head is normocephalic. Pupils are equal, round. Sclerae anicteric. Mucous membranes of the mouth are moist. Neck supple. No JVD or thyromegaly LUNGS: Respirations even and unlabored. Lungs essentially clear to auscultation bilaterally. HEART: Regular rate and rhythm. S1 and S2 heard. ABDOMEN: Soft. Nondistended. Nontender. EXTREMITIES: Normal range of motion. No clubbing or cyanosis. Peripheral pulses intact. No lower extremity edema NEUROLOGIC: Awake and alert. Oriented x 3. ASSESSMENT: Generalized weakness Paroxysmal atrial fibrillation with RVR, currently maintaining sinus mechanism Supratherapeutic INR Abnormal troponin, no signs of acute coronary syndrome Hypertension Hyperlipidemia History of throat and lung cancer PLAN: Resume home cardiac medications Discontinue IV cardizem Trend troponin Rx for eliquis sent to pharmacy. Will check prescription coverage and possibly transition patient to Eliquis instead of Coumadin if covered. Obtain 2-D echo to assess cardiac structure and function Further recommendations pending patient's course Nurse practitioner note has been reviewed by physician. Signing provider agrees with the documented findings, assessment, and plan of care. Past Medical History Past Medical History: Atrial Fibrillation, Cancer, Eye Disorder, Hyperlipidemia, Hypertension, Prostate Disorder, Thyroid Disorder Additional Past Medical History / Comment(s): artificial voice box, throat cancer, lung ca, hx of radiation, occasional SOB., cataract right eye. History of Any Multi-Drug Resistant Organisms: None Reported Additional Past Surgical History / Comment(s): total laryngectomy, bx of lung nodule, left cataract Past Anesthesia/Blood Transfusion Reactions: No Reported Reaction Additional Past Anesthesia/Blood Transfusion Reaction / Comment(s): has had laryngectomy Smoking Status: Former smoker - Past Family History Mother Family Medical History: Cancer Additional Family Medical History / Comment(s): lung Medications and Allergies Home Medications Medication Instructions Recorded Confirmed Type Folic Acid 1 mg PO DAILY 02/03/16 01/25/20 History Levothyroxine Sodium [Synthroid] 88 mcg PO DAILY 02/03/16 01/25/20 History Simvastatin [Zocor] 20 mg PO HS 02/03/16 01/25/20 History Warfarin [Coumadin] 5 mg PO MOTUWETH 02/03/16 01/25/20 History Bacitracin Zinc Oint 1 applic TOPICAL DAILY PRN 09/20/17 01/25/20 History Chlorhexidine Gluconate [Periogard] 15 ml PO BID 09/20/17 01/25/20 History Warfarin [Coumadin] 2.5 mg PO SUFRSA 09/20/17 01/25/20 History Calcium Carb-Vitamin D (Unknown 1 tab PO DAILY 01/25/20 01/25/20 History Strength) Carboxymethylcellulose Sodium 1 drop BOTH EYES 5XD PRN 01/25/20 01/25/20 History [Refresh Tears] Fluoride (Sodium) [Sodium Fluoride] 1 applic DENTAL TID 01/25/20 01/25/20 History Metoprolol Tartrate [Lopressor] 50 mg PO BID 01/25/20 01/25/20 History Multivitamins, Thera [Multivitamin 1 tab PO DAILY 01/25/20 01/25/20 History (formulary)] Sodium Chloride 0.65% Nasal [Deep 2 spray EA NOSTRIL BID 01/25/20 01/25/20 History Sea (Saline)] Apixaban [Eliquis] 5 mg PO BID #60 tab 01/26/20 Rx Allergies Allergy/AdvReac Type Severity Reaction Status Date / Time No Known Allergies Allergy Verified 01/25/20 19:49 Physical Exam Vitals: Vital Signs Temp Pulse Pulse Resp BP BP Pulse Ox 01/26/20 08:00 98.5 F 87 20 161/82 93 L 01/26/20 03:21 80 18 01/26/20 03:16 98.5 F 80 18 137/71 94 L 01/26/20 00:17 72 126/62 94 L 01/25/20 21:24 99.4 F 87 18 130/64 98 01/25/20 19:21 105 H 18 159/75 96 01/25/20 18:22 109 H 18 159/76 01/25/20 17:33 101 F H 103 H 16 129/75 96 Intake and Output 01/25/20 01/26/20 01/26/20 22:59 06:59 14:59 Intake Total 660 Output Total 650 Balance 10 Intake: Intake, IV Titration 660 Amount Diltiazem 125 mg In 60 Sodium Chloride 0.9% 100 ml @ 5 MG/HR 5 mls/hr IV .Q24H [facility] Rx#:[id number] Sodium Chloride 0.9% 1, 600 000 ml @ 60 mls/hr IV . [id number] [facility] Rx#:[id number] Output: Urine 650 Other: Weight 71.668 kg 71.668 kg Results 01/25/20 18:07 01/26/20 11:08 Cardiac Enzymes 01/25/20 01/25/20 Range/Units 18:07 18:07 AST 123 H (17-59) U/L Troponin I 0.131 H* (0.000-0.034) ng/mL Coagulation 01/25/20 01/26/20 Range/Units 18:07 00:34 PT 128.3 H 24.0 H (9.0-12.0) sec APTT 52.3 H (22.0-30.0) sec CBC 01/25/20 Range/Units 18:07 WBC 10.4 (3.8-10.6) k/uL RBC 4.82 (4.30-5.90) m/uL Hgb 15.1 (13.0-17.5) gm/dL Hct 42.8 (39.0-53.0) % Plt Count 230 (150-450) k/uL Comprehensive Metabolic Panel 01/25/20 01/26/20 Range/Units 18:07 11:08 Sodium 133 L 135 L (137-145) mmol/L Potassium 4.2 3.7 (3.5-5.1) mmol/L Chloride 97 L 102 (98-107) mmol/L Carbon Dioxide 21 L 25 (22-30) mmol/L BUN 25 H 17 (9-20) mg/dL Creatinine 1.02 0.71 (0.66-1.25) mg/dL Glucose 126 H 103 H (74-99) mg/dL Calcium 9.0 8.0 L (8.4-10.2) mg/dL AST 123 H (17-59) U/L ALT 44 (4-49) U/L Alkaline Phosphatase 95 (38-126) U/L Total Protein 7.5 (6.3-8.2) g/dL Albumin 4.1 (3.5-5.0) g/dL Current Medications Generic Name Dose Route Start Last Admin Trade Name Freq PRN Reason Stop Dose Admin Atorvastatin Calcium 10 mg 01/26/20 21:00 Atorvastatin 10 Mg Tab PO HS [facility] Diltiazem HCl 125 mg/ Sodium 125 mls @ 5 mls/hr 01/25/20 18:15 01/25/20 18:15 Chloride IV 5 mg/hr .Q24H [facility] 5 mls/hr Administration 5 MG/HR Sodium Chloride 1,000 mls @ 60 mls/hr 01/25/20 21:30 01/25/20 23:41 Saline 0.9% IV 60 mls/hr .[id number] [facility] Administration Levothyroxine Sodium 88 mcg 01/26/20 10:30 01/26/20 10:14 Levothyroxine 88 Mcg Tab PO 88 mcg DAILY@0630 [facility] Administration Metoprolol Tartrate 50 mg 01/26/20 10:00 01/26/20 10:14 Metoprolol Tartrate 50 Mg Tab PO 50 mg BID [facility] Administration Miscellaneous Information 1 each 01/26/20 09:59 Warfarin Per Pharmacy MISCELLANE DIRECTED PRN Per Protocol Protocol Naloxone HCl 0.2 mg 01/25/20 21:20 Naloxone 0.4 Mg/Ml 1 Ml Vial IV Q2M PRN Opioid Reversal Ondansetron HCl 4 mg 01/25/20 21:20 Ondansetron 4 Mg/2 Ml Vial IVP Q8HR PRN Nausea And Vomiting Warfarin Sodium 2.5 mg 01/26/20 18:00 Warfarin 2.5 Mg Tab PO 01/26/20 18:01 ONCE@1800 ONE Intake and Output 01/25/20 01/26/20 01/26/20 22:59 06:59 14:59 Intake Total 660 Output Total 650 Balance 10 Intake: Intake, IV Titration 660 Amount Diltiazem 125 mg In 60 Sodium Chloride 0.9% 100 ml @ 5 MG/HR 5 mls/hr IV .Q24H [facility] Rx#:[id number] Sodium Chloride 0.9% 1, 600 000 ml @ 60 mls/hr IV . [id number] [facility] Rx#:[id number] Output: Urine 650 Other: Weight 71.668 kg 71.668 kg 01/25/20 18:07 01/26/20 11:08
--- NOTE | 2020-01-26 15:32 | ECHOF ---
Referral Reason:afib, LV function MEASUREMENTS -------- HEIGHT: 172.7 cm WEIGHT: 71.2 kg BP: 161/82 RVIDd: 2.3 cm (< 3.3) IVSd: 1.5 cm (0.6 - 1.1) LVIDd: 3.4 cm (3.9 - 5.3) LVPWd: 1.6 cm (0.6 - 1.1) IVSs: 1.7 cm LVIDs: 2.1 cm LVPWs: 1.8 cm LAESV Index (A-L): 14.68 ml/m Ao Diam: 3.2 cm (2.0 - 3.7) AV Cusp: 2.2 cm (1.5 - 2.6) MV EXCURSION: 16.649 mm (> 18.000) MV EF SLOPE: 95 mm/s (70 - 150) EPSS: 1.1 cm MV E Adeel: 0.92 m/s MV DecT: 198 ms MV A Adeel: 0.96 m/s MV E/A Ratio: 0.96 RAP: 5.00 mmHg RVSP: 17.71 mmHg FINDINGS -------- Sinus rhythm. This was a technically adequate study. The left ventricular size is normal. There is moderate concentric left ventricular hypertrophy. O verall left ventricular systolic function is low-normal with, an EF between 50 - 55 %. The right ventricle is normal in size. Normal LA size by volume 22+/-6 ml/m2. The right atrial size is normal. Interatrial and interventricular septum intact. There is no evidence of aortic regurgitation. There is no evidence of aortic stenosis. No mitral regurgitation. Mild tricuspid regurgitation present. There is no evidence of pulmonary hypertension. The right v entricular systolic pressure, as measured by Doppler, is 17.71mmHg. There is no pulmonic regurgitation present. The aortic root size is normal. The inferior vena cava is mildly dilated. There is no pericardial effusion. CONCLUSIONS -------- 1. The left ventricular size is normal. 2. There is moderate concentric left ventricular hypertrophy. 3. Overall left ventricular systolic function is low-normal with, an EF between 50 - 55 %. 4. Mild tricuspid regurgitation present. 5. The inferior vena cava is mildly dilated. [employer]FORM[employer]SEM[employer]ER: Sonya Mendoza [facility]
[2020-01-26] MEDS ORDERED: WARFARIN 2.5 MG TAB PO ONE (18:00)
[2020-01-26] MEDS: SODIUM CHLORIDE 0.9% 1,000 ML IV SCH (19:03)
[2020-01-26] MEDS: ATORVASTATIN 10 MG TAB PO SCH (20:08)
--- NOTE | 2020-01-26 21:59 | P.HPIM ---
History of Present Illness H&P Date: 01/26/20 Chief Complaint: Generalized weakness. Patient is a 74-year-old male with a known history of atrial fibrillation on anticoagulation with warfarin, hypertension, hyperlipidemia, hypothyroidism and history of throat cancer, lung cancer status post radiation, artificial voicebox and prior history of smoking presents to ER with complaints of generalized weakness for the past 5 days. Patient started feeling weak on Tuesday night and had a fall on Tuesday as he tripped over a rug and was slow to get up because he felt so weak. Denied any hitting his head or neck pain. Patient presents to ER due to worsening symptoms. Does have generalized body aches. Denied any chest pain or shortness of breath. No abdominal pain. No nausea vomiting or diarrhea. Denies any increased sputum from the tracheal stoma. Chest x-ray showed right upper lobe infiltrate slightly increased compared to old exam. EKG showed atrial fibrillation with rapid ventricle rate Patient was febrile on admission with T-max 101 and tachycardic. Laboratory data showed INR greater than 10, sodium 133, potassium 4.2, chloride 97, BUN 25 and creatinine 1.02 Lactic acid 2.6 Troponin level 0.131 Urinalysis showed 3+ ketones and no evidence of infection. Coronavirus PCR not detected Review of Systems Constitutional: Patient denies any fever or chills . generalized weakness. n0 weight loss. Abdomen: Patient denied nausea vomiting and diarrhea and abdominal pain. Cardiovascular: Patient denies any chest pain or short of breath no palpitations. Respiratory: patient denied any cough or sputum production. No shortness of breath Neurologic: Patient denied any numbness or tingling headache. Musculoskeletal: Patient denies any complaints of joint swelling or deformity. Skin: Negative Psychiatric: Negative Endocrine: No heat or cold intolerance. No recent weight gain. Genitourinary: No dysuria or hematuria. All other 14 point ROS negative except the above Past Medical History Past Medical History: Atrial Fibrillation, Cancer, Eye Disorder, Hyperlipidemia, Hypertension, Prostate Disorder, Thyroid Disorder Additional Past Medical History / Comment(s): artificial voice box, throat cancer, lung ca, hx of radiation, occasional SOB., cataract right eye. History of Any Multi-Drug Resistant Organisms: None Reported Additional Past Surgical History / Comment(s): total laryngectomy, bx of lung nodule, left cataract Past Anesthesia/Blood Transfusion Reactions: No Reported Reaction Additional Past Anesthesia/Blood Transfusion Reaction / Comment(s): has had laryngectomy Smoking Status: Former smoker - Past Family History Mother Family Medical History: Cancer Additional Family Medical History / Comment(s): lung Medications and Allergies Home Medications Medication Instructions Recorded Confirmed Type Folic Acid 1 mg PO DAILY 02/03/16 01/25/20 History Levothyroxine Sodium [Synthroid] 88 mcg PO DAILY 02/03/16 01/25/20 History Simvastatin [Zocor] 20 mg PO HS 02/03/16 01/25/20 History Warfarin [Coumadin] 5 mg PO MOTUWETH 02/03/16 01/25/20 History Bacitracin Zinc Oint 1 applic TOPICAL DAILY PRN 09/20/17 01/25/20 History Chlorhexidine Gluconate [Periogard] 15 ml PO BID 09/20/17 01/25/20 History Warfarin [Coumadin] 2.5 mg PO SUFRSA 09/20/17 01/25/20 History Calcium Carb-Vitamin D (Unknown 1 tab PO DAILY 01/25/20 01/25/20 History Strength) Carboxymethylcellulose Sodium 1 drop BOTH EYES 5XD PRN 01/25/20 01/25/20 History [Refresh Tears] Fluoride (Sodium) [Sodium Fluoride] 1 applic DENTAL TID 01/25/20 01/25/20 History Metoprolol Tartrate [Lopressor] 50 mg PO BID 01/25/20 01/25/20 History Multivitamins, Thera [Multivitamin 1 tab PO DAILY 01/25/20 01/25/20 History (formulary)] Sodium Chloride 0.65% Nasal [Deep 2 spray EA NOSTRIL BID 01/25/20 01/25/20 History Sea (Saline)] Apixaban [Eliquis] 5 mg PO BID #60 tab 01/26/20 Rx Allergies Allergy/AdvReac Type Severity Reaction Status Date / Time No Known Allergies Allergy Verified 01/25/20 19:49 Physical Exam Vitals: Vital Signs Temp Pulse Pulse Resp BP BP Pulse Ox 01/26/20 08:00 98.5 F 87 20 161/82 93 L 01/26/20 03:21 80 18 01/26/20 03:16 98.5 F 80 18 137/71 94 L 01/26/20 00:17 72 126/62 94 L 01/25/20 21:24 99.4 F 87 18 130/64 98 01/25/20 19:21 105 H 18 159/75 96 01/25/20 18:22 109 H 18 159/76 01/25/20 17:33 101 F H 103 H 16 129/75 96 Intake and Output 01/25/20 01/26/20 01/26/20 22:59 06:59 14:59 Intake Total 660 Output Total 650 Balance 10 Intake: Intake, IV Titration 660 Amount Diltiazem 125 mg In 60 Sodium Chloride 0.9% 100 ml @ 5 MG/HR 5 mls/hr IV .Q24H [facility] Rx#:[id number] Sodium Chloride 0.9% 1, 600 000 ml @ 60 mls/hr IV . [id number] [facility] Rx#:[id number] Output: Urine 650 Other: Weight 71.668 kg 71.668 kg PHYSICAL EXAMINATION: Patient is lying in the bed comfortably, no acute distress, awake alert and oriented.Communicates with voicebox.. HEENT: Normocephalic. Neck is supple. Pupils reactive. Nostrils clear. Oral cavity is moist. Ears reveal no drainage. Neck reveals no JVD, carotid bruits, or thyromegaly. CHEST EXAMINATION: Trachea is central. Symmetrical expansion. Lung estrella clear to auscultation and percussion. CARDIAC: Normal S1, S2 with no gallops. No murmurs ABDOMEN: Soft. Bowel sounds normal. No organomegaly. No abdominal bruits. Extremities: reveal no edema. No clubbing or cyanosis Neurologically awake, alert, oriented x3 with well-coordinated movements. No focal deficits noted Skin: No rash or skin lesions. Psychiatric: Coperative. Nonsuicidal Musculoskeletal: No joint swelling or deformity. Normal range of motion. Results CBC & Chem 7: 01/25/20 18:07 01/26/20 11:08 Labs: Abnormal Lab Results - Last 24 Hours (Table) 01/25/20 01/25/20 01/25/20 Range/Units 18:07 18:07 18:07 Neutrophils # 9.4 H (1.3-7.7) k/uL Lymphocytes # 0.5 L (1.0-4.8) k/uL PT 128.3 H (9.0-12.0) sec INR >10.0 H* (<1.2) APTT 52.3 H (22.0-30.0) sec Sodium 133 L (137-145) mmol/L Chloride 97 L (98-107) mmol/L Carbon Dioxide 21 L (22-30) mmol/L BUN 25 H (9-20) mg/dL Glucose 126 H (74-99) mg/dL Plasma Lactic Acid [place] (0.7-2.0) mmol/L Total Bilirubin 1.4 H (0.2-1.3) mg/dL AST 123 H (17-59) U/L Troponin I (0.000-0.034) ng/mL 01/25/20 01/25/20 01/25/20 Range/Units 18:07 18:07 22:05 Neutrophils # (1.3-7.7) k/uL Lymphocytes # (1.0-4.8) k/uL PT (9.0-12.0) sec INR (<1.2) APTT (22.0-30.0) sec Sodium (137-145) mmol/L Chloride (98-107) mmol/L Carbon Dioxide (22-30) mmol/L BUN (9-20) mg/dL Glucose (74-99) mg/dL Plasma Lactic Acid [place] 2.6 H* 0.6 L (0.7-2.0) mmol/L Total Bilirubin (0.2-1.3) mg/dL AST (17-59) U/L Troponin I 0.131 H* (0.000-0.034) ng/mL 01/26/20 Range/Units 00:34 Neutrophils # (1.3-7.7) k/uL Lymphocytes # (1.0-4.8) k/uL PT 24.0 H (9.0-12.0) sec INR 2.5 H (<1.2) APTT (22.0-30.0) sec Sodium (137-145) mmol/L Chloride (98-107) mmol/L Carbon Dioxide (22-30) mmol/L BUN (9-20) mg/dL Glucose (74-99) mg/dL Plasma Lactic Acid [place] (0.7-2.0) mmol/L Total Bilirubin (0.2-1.3) mg/dL AST (17-59) U/L Troponin I (0.000-0.034) ng/mL Thrombosis Risk Factor Assmnt - DVT/VTE Prophylaxis DVT/VTE Prophylaxis: Pharmacologic Prophylaxis ordered - Choose All That Apply Each Factor Represents 1 point: Abnormal pulmonary function (COPD) Other Risk Factors: Yes Each Risk Factor Represents 2 Points: Age 61-74 years Other congenital or acquired thrombophilia - If yes, enter type in comment: No Thrombosis Risk Factor Assessment Total Risk Factor Score: 3 Thrombosis Risk Factor Assessment Level: Moderate Risk Assessment and Plan Assessment: Paroxysmal atrial fibrillation with rapid ventricular rate on admission Supratherapeutic INR level Elevated troponin level Lactic acidosis due to dehydration volume depletion Generalized weakness and recent fall Hypertension Hyperlipidemia History of throat cancer and lung cancer status post radiation. Currently communicates with [employer]. GI prophylaxis Plan: Patient will be continued gentle IV hydration. Patient was started on Cardizem drip. Heart rate is controlled and currently converted to sinus rhythm. Patient was started back on metoprolol. Continue with home medications and follow-up closely. Coumadin level came down to 2.5 today. Patient will be started on apixaban as per cardiology recommendations. Continue to follow closely and further recommendations based on the clinical course. Lactic acidosis resolved. Troponin levels trending down. Time with Patient: Greater than 30
[2020-01-27] MEDS: LEVOTHYROXINE 88 MCG TAB PO SCH (06:26)
[2020-01-27] MEDS: SODIUM CHLORIDE 0.9% 1,000 ML IV SCH (08:29)
[2020-01-27] MEDS: METOPROLOL TARTRATE 50 MG TAB PO SCH ×2 (08:29→18:58)
[2020-01-27 08:48] LABS: INR 1.5 (<1.2); Prothrombin Time 14.6 sec (9.0-12.0)
[2020-01-27] MEDS ORDERED: APIXABAN 5 MG TAB PO SCH (10:00)
--- NOTE | 2020-01-27 11:17 | P.PN ---
Subjective Progress Note Date: 01/27/20 CHIEF COMPLAINT: A. 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 Patient follows in the office with Dr. Lr. We have been asked to see the patient in consultation for A. fib with RVR and elevated INR. Patient examined this morning at the bedside. Patient states he has been feeling weak for the past 5-6 days. He reports falling a couple days ago and having to drag himself into the bathroom or there was a cord. EMS came and helped get the patient off the floor. He declined to come to the emergency room at that time. However he states he continued to feel weak over the past couple days so he finally decided yesterday to come to the emergency room. Patient denies any chest pain or pressure. He denies shortness of breath. He does r eport coughing up some blood over the past couple days. Patient's INR was found to be greater than 10 on admission to the hospital. He denies any dose changes in his Coumadin recently. EKG upon admission revealed A. fib with RVR. The patient was started on a Cardizem drip. The patient has since converted to sinus rhythm. 01/27/2020 Patient examined this morning at the bedside. Patient denies chest pain or pressure. He denies shortness of breath. He remains in sinus rhythm. INR 1.5 today. Echocardiogram completed reveals ejection fraction 50-55% and mild tricuspid regurgitation. PHYSICAL EXAM: VITAL SIGNS: Reviewed. GENERAL: Well-developed in no acute distress. HEENT: Head is normocephalic. Pupils are equal, round. Sclerae anicteric. Mucous membranes of the mouth are moist. Neck supple. No JVD or thyromegaly LUNGS: Respirations even and unlabored. Lungs essentially clear to auscultation bilaterally. HEART: Regular rate and rhythm. S1 and S2 heard. ABDOMEN: Soft. Nondistended. Nontender. EXTREMITIES: Normal range of motion. No clubbing or cyanosis. Peripheral pulses intact. No lower extremity edema NEUROLOGIC: Awake and alert. Oriented x 3. ASSESSMENT: Generalized weakness Paroxysmal atrial fibrillation with RVR, currently maintaining sinus mechanism Supratherapeutic INR Abnormal troponin, no signs of acute coronary syndrome Hypertension Hyperlipidemia History of throat and lung cancer PLAN: Patient's INR is 1.5 today. Will begin Eliquis 5 mg twice a day Continue additional cardiac medications Patient is stable from a cardiac standpoint Nurse practitioner note has been reviewed by physician. Signing provider agrees with the documented findings, assessment, and plan of care. Objective - Vital Signs Vital signs: Vital Signs Temp 98.5 F 01/27/20 08:00 Pulse 80 01/27/20 08:00 Resp 19 01/27/20 08:00 BP 152/67 01/27/20 08:00 Pulse Ox 93 L 01/27/20 08:00 Intake & Output 01/26/20 01/27/20 01/27/20 18:59 06:59 18:59 Intake Total 1868.25 450 Output Total 1500 Balance 368.25 450 Weight 65.3 kg Intake: Intake, IV Titration 1748.25 Amount Diltiazem 125 mg In 148.25 Sodium Chloride 0.9% 100 ml @ 5 MG/HR 5 mls/hr IV .Q24H [facility] Rx#:[id number] Sodium Chloride 0.9% 1, 1600 000 ml @ 60 mls/hr IV . [id number] [facility] Rx#:[id number] Oral 120 450 Output: Urine 1500 Other: Voiding Method Urinal Urinal Urinal # Voids 1 - Labs CBC & Chem 7: 01/25/20 18:07 01/26/20 11:08 Labs: Abnormal Lab Results - Last 24 Hours (Table) 01/26/20 01/26/20 01/26/20 Range/Units 11:08 11:08 14:20 PT (9.0-12.0) sec INR (<1.2) Sodium 135 L (137-145) mmol/L Glucose 103 H (74-99) mg/dL Calcium 8.0 L (8.4-10.2) mg/dL Troponin I 0.082 H* 0.086 H* (0.000-0.034) ng/mL 01/26/20 01/27/20 Range/Units 17:10 07:58 PT 14.6 H (9.0-12.0) sec INR 1.5 H (<1.2) Sodium (137-145) mmol/L Glucose (74-99) mg/dL Calcium (8.4-10.2) mg/dL Troponin I 0.085 H* (0.000-0.034) ng/mL Microbiology - Last 24 Hours (Table) 01/25/20 19:07 Blood Culture - Preliminary Blood No Growth after 24 hours
[2020-01-27] MEDS: FOLIC ACID 1 MG TAB PO SCH (12:06)
[2020-01-27] MEDS: APIXABAN 5 MG TAB PO SCH ×2 (12:06→20:03)
[2020-01-27] MEDS: MULTIVITAMINS, THERA 1 EACH TAB PO SCH (12:06)
[2020-01-27] MEDS: CALCIUM CARB-VIT D 500MG-200UN 1 EACH TAB PO SCH (12:06)
[2020-01-27] MEDS ORDERED: WARFARIN 2.5 MG TAB PO ONE (18:00)
[2020-01-27] MEDS ORDERED: DILTIAZEM DRIP BOLUS FROM BAG 1 MG SOLN IV ONE (19:19)
[2020-01-27] MEDS: ATORVASTATIN 10 MG TAB PO SCH (20:03)
[2020-01-27] MEDS: DILTIAZEM 125 MG in SODIUM CHLORIDE 0.9% 100 ML IV SCH (20:04)
--- NOTE | 2020-01-27 23:16 | P.PN ---
Subjective Progress Note Date: 01/27/20 Principal diagnosis: A. fib with RVR Supratherapeutic INR level. Patient is a 74-year-old male with a known history of atrial fibrillation on anticoagulation with warfarin, hypertension, hyperlipidemia, hypothyroidism and history of throat cancer, lung cancer status post radiation, artificial voicebox and prior history of smoking presents to ER with complaints of generalized weakness for the past 5 days. Patient started feeling weak on Tuesday night and had a fall on Tuesday as he tripped over a rug and was slow to get up because he felt so weak. Denied any hitting his head or neck pain. Patient presents to ER due to worsening symptoms. Does have generalized body aches. Denied any chest pain or shortness of breath. No abdominal pain. No nausea vomiting or diarrhea. Denies any increased sputum from the tracheal stoma. Chest x-ray showed right upper lobe infiltrate slightly increased compared to old exam. EKG showed atrial fibrillation with rapid ventricle rate Patient was febrile on admission with T-max 101 and tachycardic. Laboratory data showed INR greater than 10, sodium 133, potassium 4.2, chloride 97, BUN 25 and creatinine 1.02 Lactic acid 2.6 Troponin level 0.131 Urinalysis showed 3+ ketones and no evidence of infection. Coronavirus PCR not detected 01/27/2020 Patient is currently sitting on the side of the bed comfortably. Denied any complaints of nausea vomiting or abdominal pain. INR came down to 1.5 and heart rate is better controlled. Patient is maintaining sinus rhythm. Warfarin has been discontinued and patient will be started on Eliquis as per cardiology recommendations. Patient denied any dizziness or lightheadedness. Tolerating oral diet. Anticipate discharge in next 24 hours. Current medications reviewed. Objective - Vital Signs Vital signs: Vital Signs Temp 98.4 F 01/27/20 12:00 Pulse 78 01/27/20 13:42 Resp 19 01/27/20 13:42 BP 156/73 01/27/20 12:00 Pulse Ox 92 L 01/27/20 12:00 Intake & Output 01/26/20 01/27/20 01/27/20 18:59 06:59 18:59 Intake Total 1868.25 450 840 Output Total 1500 900 Balance 368.25 450 -60 Weight 65.3 kg Intake: Intake, IV Titration 1748.25 180 Amount Diltiazem 125 mg In 148.25 Sodium Chloride 0.9% 100 ml @ 5 MG/HR 5 mls/hr IV .Q24H [facility] Rx#:[id number] Sodium Chloride 0.9% 1, 1600 180 000 ml @ 60 mls/hr IV . [id number] [facility] Rx#:[id number] Oral 120 450 660 Output: Urine 1500 900 Other: Voiding Method Urinal Urinal Urinal # Voids 1 1 - Exam PHYSICAL EXAMINATION: Patient is lying in the bed comfortably, no acute distress, awake alert and oriented.Communicates with voicebox.. HEENT: Normocephalic. Neck is supple. Pupils reactive. Nostrils clear. Oral cavity is moist. Ears reveal no drainage. Neck reveals no JVD, carotid bruits, or thyromegaly. CHEST EXAMINATION: Trachea is central. Symmetrical expansion. Lung estrella clear to auscultation and percussion. CARDIAC: Normal S1, S2 with no gallops. No murmurs ABDOMEN: Soft. Bowel sounds normal. No organomegaly. No abdominal bruits. Extremities: reveal no edema. No clubbing or cyanosis Neurologically awake, alert, oriented x3 with well-coordinated movements. No focal deficits noted Skin: No rash or skin lesions. Psychiatric: Coperative. Nonsuicidal Musculoskeletal: No joint swelling or deformity. Normal range of motion. - Labs CBC & Chem 7: 01/25/20 18:07 01/26/20 11:08 Labs: Abnormal Lab Results - Last 24 Hours (Table) 01/26/20 01/27/20 Range/Units 17:10 07:58 PT 14.6 H (9.0-12.0) sec INR 1.5 H (<1.2) Troponin I 0.085 H* (0.000-0.034) ng/mL Microbiology - Last 24 Hours (Table) 01/25/20 19:07 Blood Culture - Preliminary Blood No Growth after 24 hours Assessment and Plan Assessment: Paroxysmal atrial fibrillation with rapid ventricular rate on admission Supratherapeutic INR level Elevated troponin level Lactic acidosis due to dehydration volume depletion Generalized weakness and recent fall Hypertension Hyperlipidemia History of throat cancer and lung cancer status post radiation. Currently communicates with voicebox. GI prophylaxis Plan: Patient will be continued gentle IV hydration. Patient was started on Cardizem drip. Heart rate is controlled and currently converted to sinus rhythm. Patient was started back on metoprolol. Continue with home medications and follow-up closely. Coumadin level came down to 2.5 today. Patient will be started on apixaban as per cardiology recommendations. Continue to follow closely and further recommendations based on the clinical course. Lactic acidosis resolved. Troponin levels trending down. Time with Patient: Greater than 30
[2020-01-28] MEDS: LEVOTHYROXINE 88 MCG TAB PO SCH (06:40)
[2020-01-28] MEDS: APIXABAN 5 MG TAB PO SCH (09:19)
[2020-01-28] MEDS: MULTIVITAMINS, THERA 1 EACH TAB PO SCH (09:19)
[2020-01-28] MEDS: FOLIC ACID 1 MG TAB PO SCH (09:19)
[2020-01-28] MEDS: CALCIUM CARB-VIT D 500MG-200UN 1 EACH TAB PO SCH (09:19)
[2020-01-28] MEDS: METOPROLOL TARTRATE 50 MG TAB PO SCH (09:19)
[2020-01-28] MEDS: DILTIAZEM 125 MG in SODIUM CHLORIDE 0.9% 100 ML IV SCH (09:29)
[2020-01-28 09:42] LABS: INR 2.6 (<1.2); Prothrombin Time 25.5 sec (9.0-12.0)
--- NOTE | 2020-01-28 10:31 | P.PN ---
Subjective This is a pleasant 74-year-old male past medical history significant for paroxysmal atrial fibrillation, hypertension, dyslipidemia, throat and lung cancer with artificial voice box and former nicotine dependence. He follows in the office with Dr. Lr. He is seen and examined sitting up in bed in no acute distress. He has no symptoms of chest discomfort on the shortness of breath, dizziness or palpitations. Echocardiogram obtained on this admission reveals preserved LV systolic function with ejection fraction 50-55% with mild tricuspid regurgitation. He is currently maintaining sinus mechanism. Last night he had an episode of A. fib that required resumption of IV Cardizem. Current blood pressure 134/67 heart rate 73 afebrile maintaining oxygen saturation on room air. Laboratory data reviewed, INR today is 2.6. Currently maintained on Eliquis 5 mg twice a day, atorvastatin 10 mg at that time and metoprolol 50 mg twice a day. GENERAL: Well-appearing, well-nourished and in no acute distress. NECK: Supple without JVD or thyromegaly. LUNGS: Breath sounds clear to auscultation bilaterally. Respiration equal and unlabored. No wheezes, rales or rhonchi. HEART: Regular rate and rhythm without murmurs, rubs or gallops. S1 and S2 heard. EXTREMITIES: Normal range of motion, no edema. No clubbing or cyanosis. Periph eral pulses intact. ASSESSMENT Generalized weakness Paroxysmal atrial fibrillation with rapid ventricular rate, currently maintaining sinus mechanism Abnormal troponin consistent with acute coronary syndrome likely related to rapid ventricular rate Hypertension Supratherapeutic INR Dyslipidemia History of throat and lung cancer PLAN We will check the cost Eliquis today. Maintaining sinus mechanism this morning. Continue beta blockers. Stable for discharge from a cardiac perspective, follow-up in the office with Dr. Lr. Nurse Practitioner note has been reviewed, I agree with a documented findings and plan of care. Patient was seen and examined. Objective - Vital Signs Vital signs: Vital Signs Temp 98.2 F 01/28/20 09:18 Pulse 73 01/28/20 09:18 Resp 18 01/28/20 09:18 BP 134/67 01/28/20 09:18 Pulse Ox 93 L 01/28/20 09:18 Intake & Output 01/27/20 01/28/20 01/28/20 18:59 06:59 18:59 Intake Total 1080 103 175.25 Output Total 900 550 Balance 180 -447 175.25 Weight 64.8 kg Intake: Intake, IV Titration 180 3 55.25 Amount Diltiazem 125 mg In 3 55.25 Sodium Chloride 0.9% 100 ml @ 10 MG/HR 10 mls/hr IV .[id number] [facility] Rx#: [id number] Sodium Chloride 0.9% 1, 180 000 ml @ 60 mls/hr IV . [id number] [facility] Rx#:[id number] Oral 900 100 120 Output: Urine 900 550 Other: Voiding Method Urinal Urinal # Voids 1 1 - Labs CBC & Chem 7: 01/25/20 18:07 01/26/20 11:08 Labs: Abnormal Lab Results - Last 24 Hours (Table) 01/28/20 Range/Units 08:25 PT 25.5 H (9.0-12.0) sec INR 2.6 H (<1.2) Microbiology - Last 24 Hours (Table) 01/25/20 19:07 Blood Culture - Preliminary Blood No Growth after 48 hours
[2020-01-28 11:09] VITALS: RESP 16
[2020-01-28 12:22] VITALS: BP 123/65; PULSE 71; TEMP 97.7
--- NOTE | 2020-01-28 14:34 | P.DS ---
Providers Date of admission: 01/25/20 19:28 Attending physician: Ganga Kelley Consults: 01/25/20 21:22 Consult Physician Urgent Consulting Provider: [facility] Consult Reason/Comments: A. fib with RVR, elevated INR, elevated troponin Do you want consulting provider notified?: Yes Primary care physician: [facility] Course: A. fib with RVR Supratherapeutic INR level. Patient is a 74-year-old male with a known history of atrial fibrillation on anticoagulation with warfarin, hypertension, hyperlipidemia, hypothyroidism and history of throat cancer, lung cancer status post radiation, artificial voicebox and prior history of smoking presents to ER with complaints of generalized weakness for the past 5 days. Patient started feeling weak on Tuesday night and had a fall on Tuesday as he tripped over a rug and was slow to get up because he felt so weak. Denied any hitting his head or neck pain. Patient presents to ER due to worsening symptoms. Does have generalized body aches. Denied any chest pain or shortness of breath. No abdominal pain. No nausea vomiting or diarrhea. Denies any increased sputum from the tracheal stoma. Chest x-ray showed right upper lobe infiltrate slightly increased compared to old exam. EKG showed atrial fibrillation with rapid ventricle rate Patient was febrile on admission with T-max 101 and tachycardic. Laboratory data showed INR greater than 10, sodium 133, potassium 4.2, chloride 97, BUN 25 and creatinine 1.02 Lactic acid 2.6 Troponin level 0.131 Urinalysis showed 3+ ketones and no evidence of infection. Coronavirus PCR not detected 01/27/2020 Patient is currently sitting on the side of the bed comfortably. Denied any complaints of nausea vomiting or abdominal pain. INR came down to 1.5 and heart rate is better controlled. Patient is maintaining sinus rhythm. Warfarin has been discontinued and patient will be started on Eliquis as per cardiology recommendations. Patient denied any dizziness or lightheadedness. Tolerating oral diet. Anticipate discharge in next 24 hours. 01/28/2020 Patient is clinically doing well cleared by cardiology patient was discharged on Eliquis Coumadin was discontinued. INR is 2.6 which is expected to come down. PHYSICAL EXAMINATION: GENERAL: The patient is alert and oriented x3, not in any acute distress. Well developed, well nourished. HEENT: Pupils are round and equally reacting to light. EOMI. No scleral icterus. No conjunctival pallor. Normocephalic, atraumatic. No pharyngeal erythema. No thyromegaly. CARDIOVASCULAR: S1 and S2 present. No murmurs, rubs, or gallops. PULMONARY: Chest is clear to auscultation, no wheezing or crackles. ABDOMEN: Soft, nontender, nondistended, normoactive bowel sounds. No palpable organomegaly. MUSCULOSKELETAL: No joint swelling or deformity. EXTREMITIES: No cyanosis, clubbing, or pedal edema. NEUROLOGICAL: Gross neurological examination did not reveal any focal deficits. SKIN: No rashes. Assessment and Plan Paroxysmal atrial fibrillation with rapid ventricular rate on admission which resolved patient is presently sinus rhythm. And is being switched to Eliquis a nd Coumadin is being discontinued Supratherapeutic INR level on admission, improved now Elevated troponin level Lactic acidosis due to dehydration volume depletion, resolved now Generalized weakness and recent fall Hypertension Hyperlipidemia History of throat cancer and lung cancer status post radiation. Currently communicates with [employer]. Patient Condition at Discharge: Stable Plan - Discharge Summary Discharge Rx Participant: No New Discharge Prescriptions: New Apixaban [Eliquis] 5 mg PO BID #60 tab Continue Levothyroxine Sodium [Synthroid] 88 mcg PO DAILY Simvastatin [Zocor] 20 mg PO HS Folic Acid 1 mg PO DAILY Chlorhexidine Gluconate [Periogard] 15 ml PO BID Bacitracin Zinc Oint 1 applic TOPICAL DAILY PRN PRN Reason: stoma care Sodium Chloride 0.65% Nasal [Deep Sea (Saline)] 2 spray EA NOSTRIL BID Multivitamins, Thera [Multivitamin (formulary)] 1 tab PO DAILY Metoprolol Tartrate [Lopressor] 50 mg PO BID Carboxymethylcellulose Sodium [Refresh Tears] 1 drop BOTH EYES 5XD PRN PRN Reason: dry eyes Calcium Carb-Vitamin D (Unknown Strength) 1 tab PO DAILY Fluoride (Sodium) [Sodium Fluoride] 1 applic DENTAL TID Discontinued Warfarin [Coumadin] 5 mg PO MOTUWETH Warfarin [Coumadin] 2.5 mg PO SUFRSA Discharge Medication List Folic Acid 1 mg PO DAILY 02/03/16 [History] Levothyroxine Sodium [Synthroid] 88 mcg PO DAILY 02/03/16 [History] Simvastatin [Zocor] 20 mg PO HS 02/03/16 [History] Bacitracin Zinc Oint 1 applic TOPICAL DAILY PRN 09/20/17 [History] Chlorhexidine Gluconate [Periogard] 15 ml PO BID 09/20/17 [History] Calcium Carb-Vitamin D (Unknown Strength) 1 tab PO DAILY 01/25/20 [History] Carboxymethylcellulose Sodium [Refresh Tears] 1 drop BOTH EYES 5XD PRN 01/25/20 [History] Fluoride (Sodium) [Sodium Fluoride] 1 applic DENTAL TID 01/25/20 [History] Metoprolol Tartrate [Lopressor] 50 mg PO BID 01/25/20 [History] Multivitamins, Thera [Multivitamin (formulary)] 1 tab PO DAILY 01/25/20 [History] Sodium Chloride 0.65% Nasal [Deep Sea (Saline)] 2 spray EA NOSTRIL BID 01/25/20 [History] Apixaban [Eliquis] 5 mg PO BID #60 tab 01/26/20 [Rx] Follow up Appointment(s)/Referral(s): Shiva Lr MD [STAFF PHYSICIAN] - 2 Weeks [facility] [Primary Care Provider] - 3 Days Activity/Diet/Wound Care/Special Instructions: Script for Eliquis filled at [facility] using a free 30 day coupon Discharge Disposition: HOME SELF-CARE
== END 2020-01-28 17:09 | disposition home or self-care (01) | DRG 309 ==
LOC: EC 17:09 → 3SCARD 19:28 → 6NMEDSUR 01-26 14:53 → 3SCARD 01-26 14:55
PROVIDERS: ADMIT Hospitalist; ATTEND Hospitalist
DX: I48.0 Paroxysmal atrial fibrillation (principal); E87.2 Acidosis; I24.9 Acute ischemic heart disease, unspecified; S09.90XA Unspecified injury of head, initial encounter; I11.9 Hypertensive heart disease without heart failure; Z20.828 Contact with and (suspected) exposure to other viral communicable diseases; I07.1 Rheumatic tricuspid insufficiency; E86.0 Dehydration; E78.5 Hyperlipidemia, unspecified; E03.9 Hypothyroidism, unspecified; R79.1 Abnormal coagulation profile; R91.1 Solitary pulmonary nodule; H26.9 Unspecified cataract; R77.8 Other specified abnormalities of plasma proteins; N42.9 Disorder of prostate, unspecified; Z79.890 Hormone replacement therapy; Z79.01 Long term (current) use of anticoagulants; Z79.899 Other long term (current) drug therapy; Z91.81 History of falling; Z85.819 Personal history of malignant neoplasm of unspecified site of lip, oral cavity, and pharynx; Z90.02 Acquired absence of larynx; Z96.3 Presence of artificial larynx; Z85.118 Personal history of other malignant neoplasm of bronchus and lung; Z92.3 Personal history of irradiation; Z87.891 Personal history of nicotine dependence; W18.09XA Striking against other object with subsequent fall, initial encounter
CPT/HCPCS: 36415; 71046; 80048; 80053; 81001; 83605; 83735; 84443; 84484; 85025; 85610; 85730; 87040; 87635; 93005; 93306; 96365; 96368; 96376; 99291

== ENCOUNTER → 2020-08-19 | Outpatient (CLI) | payer OTHER ==
[2020-08-19 14:05] LABS: African American GFR (CKD) >90 (>60 ml/min/1.73 sqM); Blood Urea Nitrogen 15 mg/dL (9-20); Non-African American GFR(CKD) 85 (>60 ml/min/1.73 sqM)
--- NOTE | 2020-08-19 15:10 | CT ---
EXAMINATION TYPE: CT chest wo/w con DATE OF EXAM: 08/19/2020 COMPARISON: 08/22/2009 HISTORY: Lung bronchi cancer CT DLP: 407.70 mGycm Automated exposure control for dose reduction was used. TECHNIQUE: CT scan of the chest is performed without and with IV Contrast, patient injected with 100 ml mL of Is ovue 300. MIP Images are created on CT scanner and reviewed. 3D reconstructed images are created on an independent workstation and reviewed. FINDINGS: LUNGS: There remains a irregular area of density in the right upper lobe somewhat bandlike in morphol ogy emanating from the right hilum measuring 3.1 x 1.4 cm and previously measuring 3.1 x 1.2 cm there fore similar in size. Right upper lobe posterior pleural-based thickening is stable. Mild hyperinflat ion suggestive of COPD. MEDIASTINUM: There are no greater than 1 cm hilar or mediastinal lymph nodes. No pericardial effusi on is seen. Dense coronary artery calcification noted. Atherosclerotic change aorta with the ascendi ng aorta measuring 3.5 cm and within normal limits. Heart size stable. OTHER: 1.2 cm hepatic lesion is stable from prior exam near the dome of the liver measuring 10 Houns field units compatible with simple cyst. Small hiatal hernia noted. Suspect a second hepatic lesion i s also stable measuring approximately 1.2 cm along the posterior segment of the right lobe of the mp er measuring 1 Hounsfield unit also compatible with simple cyst. Stable compression deformities invol ving thoracic spine and therefore chronic. Multilevel hypertrophic and degenerative changes. IMPRESSION: 1. Nonspecific bandlike density extending from the right hilum emanating into the right upper lobe st able from the prior exam. 2. Previously noted groundglass nodule involving the left lower lobe not seen with certainty on today 's exam. 3. Stable hepatic cysts.
== END | disposition home or self-care (01) ==
LOC: RADCTMAIN 12:27
PROVIDERS: ATTEND Radiology Radiation Oncology
DX: C34.90 Malignant neoplasm of unspecified part of unspecified bronchus or lung (principal); J98.4 Other disorders of lung; K76.89 Other specified diseases of liver
CPT/HCPCS: 82565; 84520; 71270; 36415; Q9967

== ENCOUNTER → 2020-08-29 | Outpatient (CLI) | payer OTHER | END | disposition home or self-care (01) ==

== ENCOUNTER 2021-02-16 10:35 | Inpatient (IN) | payer OTHER ==
[2021-02-16] MEDS ORDERED: SODIUM CHLORIDE 0.9% 500 ML 500 ML IV STA (11:23)
[2021-02-16 11:56] LABS: Basophils % (A) 0 %; Eosinophils # (A) 0.1 k/uL (0-0.7); Eosinophils % (A) 1 %; HCT 37.1 % (39.0-53.0); HGB 12.4 gm/dL (13.0-17.5); Lymphocytes # (A) 0.9 k/uL (1.0-4.8); Lymphocytes % (A) 9 %; MCH 31.1 pg (25.0-35.0); MCHC 33.5 g/dL (31.0-37.0); MCV 92.9 fL (80.0-100.0); Monocytes # (A) 0.4 k/uL (0-1.0); Monocytes % (A) 4 %; Neutrophils # (A) 8.8 k/uL (1.3-7.7); Neutrophils % (A) 86 %; Platelet Count 186 k/uL (150-450); RBC 3.99 m/uL (4.30-5.90); RDW 12.5 % (11.5-15.5); WBC 10.3 k/uL (3.8-10.6)
--- NOTE | 2021-02-16 11:58 | ED ---
General Adult HPI - General Chief complaint: Syncope Stated complaint: syncope Time Seen by Provider: 02/16/21 10:43 Source: patient, EMS, RN notes reviewed Mode of arrival: EMS Limitations: no limitations - History of Present Illness Initial comments: This a 75-year-old male presents emergency Department chief complaint of syncopal episode. Patient is brought in by EMS from physician anesthesiologist office. Patient states he is having her eye exam in which he was concentrating very hard bladder states started feeling lightheaded, dizzy time. Patient reportedly had a syncopal episode. Patient denies remembering this incident. Patient does take Eliquis but denies hitting head there was no report of head injury by physician.. Patient states that he was up most the night worrying about his eye appointment states he did not eat much for his breakfast. Patient has no complaints at this time. - Related Data Home Medications Medication Instructions Recorded Confirmed Folic Acid 1 mg PO DAILY 02/03/16 02/16/21 Simvastatin [Zocor] 20 mg PO HS 02/03/16 02/16/21 Chlorhexidine Gluconate [Periogard] 15 ml PO HS 09/20/17 02/16/21 Carboxymethylcellulose Sodium 1 drop BOTH EYES 5XD PRN 01/25/20 02/16/21 [Refresh Tears] Metoprolol Tartrate [Lopressor] 50 mg PO BID 01/25/20 02/16/21 Levothyroxine Sodium [Synthroid] 88 mcg PO DAILY 02/16/21 02/16/21 Terazosin HCl 10 mg PO DAILY 02/16/21 02/16/21 Vitamin B Complex 1 cap PO DAILY 02/16/21 02/16/21 Previous Rx's Medication Instructions Recorded Apixaban [Eliquis] 5 mg PO BID #60 tab 01/26/20 Allergies Allergy/AdvReac Type Severity Reaction Status Date / Time No Known Allergies Allergy Verified 02/16/21 11:15 Review of Systems ROS Statement: Those systems with pertinent positive or pertinent negative responses have been documented in the HPI. ROS Other: All systems not noted in ROS Statement are negative. Past Medical History Past Medical History: Atrial Fibrillation, Cancer, Eye Disorder, Hyperlipidemia, Hypertension, Prostate Disorder, Thyroid Disorder Additional Past Medical History / Comment(s): artificial voice box, throat cancer, lung ca, hx of radiation, occasional SOB., cataract right eye. History of Any Multi-Drug Resistant Organisms: None Reported Additional Past Surgical History / Comment(s): total laryngectomy, bx of lung nodule, left cataract Past Anesthesia/Blood Transfusion Reactions: No Reported Reaction Additional Past Anesthesia/Blood Transfusion Reaction / Comment(s): has had laryngectomy Past Psychological History: No Psychological Hx Reported Smoking Status: Former smoker - Past Family History Mother Family Medical History: Cancer Additional Family Medical History / Comment(s): lung General Exam Limitations: no limitations General appearance: alert, in no apparent distress Head exam: Present: atraumatic, normocephalic, normal inspection Eye exam: Present: normal appearance, PERRL, EOMI. Absent: scleral icterus, conjunctival injection, periorbital swelling ENT exam: Present: normal exam, mucous membranes moist Neck exam: Present: full ROM. Absent: normal inspection (Prior trach), tenderness, meningismus, lymphadenopathy Respiratory exam: Present: normal lung sounds bilaterally. Absent: respiratory distress, wheezes, rales, rhonchi, stridor Cardiovascular Exam: Present: regular rate, normal rhythm, normal heart sounds. Absent: systolic murmur, diastolic murmur, rubs, gallop, clicks GI/Abdominal exam: Present: soft, normal bowel sounds. Absent: distended, tenderness, guarding, rebound, rigid Neurological exam: Present: alert, oriented X3, CN II-XII intact, reflexes normal. Absent: motor sensory deficit Course Vital Signs 02/16/21 02/16/21 02/16/21 10:38 11:56 12:20 Temperature 97.0 F L Pulse Rate 50 L 51 L 63 Respiratory 18 18 18 Rate Blood Pressure 132/59 118/79 117/84 O2 Sat by Pulse 95 95 95 Oximetry 02/16/21 13:36 Temperature Pulse Rate 132 H Respiratory 18 Rate Blood Pressure 110/88 O2 Sat by Pulse 95 Oximetry EKG Findings - EKG Comments: EKG Findings:: EKG performed at 11:40 sinus bradycardia rate of 46 ND 206 QRS 80 QT/QTC 416/409. Repeat EKG at 13:30 A. fib with RVR rate of 119 QRS 72 QT/QTC 338/475 Medical Decision Making - Medical Decision Making 75-year-old male presented for syncopal episode. Labs were unremarkable patient initially had a bradycardic EKG though upon reevaluation patient flipped into A. fib with RVR her rate up in the 150s. Patient was started on Cardizem will be admitted for cardiology evaluation. - Lab Data Result diagrams: 02/16/21 11:36 02/16/21 11:36 Lab Results 02/16/21 02/16/21 02/16/21 Range/Units 11:36 11:36 11:36 WBC 10.3 (3.8-10.6) k/uL RBC 3.99 L (4.30-5.90) m/uL Hgb 12.4 L (13.0-17.5) gm/dL Hct 37.1 L (39.0-53.0) % MCV 92.9 (80.0-100.0) fL MCH 31.1 (25.0-35.0) pg MCHC 33.5 (31.0-37.0) g/dL RDW 12.5 (11.5-15.5) % Plt Count 186 (150-450) k/uL MPV 7.0 Neutrophils % 86 % Lymphocytes % 9 % Monocytes % 4 % Eosinophils % 1 % Basophils % 0 % Neutrophils # 8.8 H (1.3-7.7) k/uL Lymphocytes # 0.9 L (1.0-4.8) k/uL Monocytes # 0.4 (0-1.0) k/uL Eosinophils # 0.1 (0-0.7) k/uL Basophils # 0.0 (0-0.2) k/uL PT 11.7 (9.0-12.0) sec INR 1.1 (<1.2) APTT 26.2 (22.0-30.0) sec Sodium (137-145) mmol/L Potassium (3.5-5.1) mmol/L Chloride (98-107) mmol/L Carbon Dioxide (22-30) mmol/L Anion Gap mmol/L BUN (9-20) mg/dL Creatinine (0.66-1.25) mg/dL Est GFR (CKD-EPI)AfAm (>60 ml/min/1.73 sqM) Est GFR (CKD-EPI)NonAf (>60 ml/min/1.73 sqM) Glucose (74-99) mg/dL Calcium (8.4-10.2) mg/dL Magnesium (1.6-2.3) mg/dL Total Bilirubin (0.2-1.3) mg/dL AST (17-59) U/L ALT (4-49) U/L Alkaline Phosphatase (38-126) U/L Troponin I (0.000-0.034) ng/mL Total Protein (6.3-8.2) g/dL Albumin (3.5-5.0) g/dL Urine Color Light Yellow Urine Appearance Clear (Clear) Urine pH 7.5 (5.0-8.0) Ur Specific [place] 1.007 (1.001-1.035) Urine Protein Negative (Negative) Urine Glucose (UA) Negative (Negative) Urine Ketones Negative (Negative) Urine Blood Negative (Negative) Urine Nitrite Negative (Negative) Urine Bilirubin Negative (Negative) Urine Urobilinogen <2.0 (<2.0) mg/dL Ur Leukocyte Esterase Negative (Negative) 02/16/21 02/16/21 Range/Units 11:36 11:36 WBC (3.8-10.6) k/uL RBC (4.30-5.90) m/uL Hgb (13.0-17.5) gm/dL Hct (39.0-53.0) % MCV (80.0-100.0) fL MCH (25.0-35.0) pg MCHC (31.0-37.0) g/dL RDW (11.5-15.5) % Plt Count (150-450) k/uL MPV Neutrophils % % Lymphocytes % % Monocytes % % Eosinophils % % Basophils % % Neutrophils # (1.3-7.7) k/uL Lymphocytes # (1.0-4.8) k/uL Monocytes # (0-1.0) k/uL Eosinophils # (0-0.7) k/uL Basophils # (0-0.2) k/uL PT (9.0-12.0) sec INR (<1.2) APTT (22.0-30.0) sec Sodium 134 L (137-145) mmol/L Potassium 4.0 (3.5-5.1) mmol/L Chloride 103 (98-107) mmol/L Carbon Dioxide 26 (22-30) mmol/L Anion Gap 5 mmol/L BUN 18 (9-20) mg/dL Creatinine 0.93 (0.66-1.25) mg/dL Est GFR (CKD-EPI)AfAm >90 (>60 ml/min/1.73 sqM) Est GFR (CKD-EPI)NonAf 80 (>60 ml/min/1.73 sqM) Glucose 102 H (74-99) mg/dL Calcium 8.8 (8.4-10.2) mg/dL Magnesium 1.8 (1.6-2.3) mg/dL Total Bilirubin 1.4 H (0.2-1.3) mg/dL AST 24 (17-59) U/L ALT 18 (4-49) U/L Alkaline Phosphatase 72 (38-126) U/L Troponin I <0.012 (0.000-0.034) ng/mL Total Protein 7.0 (6.3-8.2) g/dL Albumin 3.9 (3.5-5.0) g/dL Urine Color Urine Appearance (Clear) Urine pH (5.0-8.0) Ur Specific [place] (1.001-1.035) Urine Protein (Negative) Urine Glucose (UA) (Negative) Urine Ketones (Negative) Urine Blood (Negative) Urine Nitrite (Negative) Urine Bilirubin (Negative) Urine Urobilinogen (<2.0) mg/dL Ur Leukocyte Esterase (Negative) Critical Care Time Critical Care Time: Yes Total Critical Care Time: 35 Disposition Clinical Impression: Atrial fibrillation with RVR, Syncope Disposition: ADMITTED IP TO THIS HOSP Referrals: [facility] [Primary Care Provider] - 1-2 days
[2021-02-16 12:13] LABS: INR 1.1 (<1.2); Partial Thromboplastin Time 26.2 sec (22.0-30.0); Prothrombin Time 11.7 sec (9.0-12.0)
--- NOTE | 2021-02-16 12:13 | XR ---
EXAMINATION TYPE: XR chest 2V DATE OF EXAM: 02/16/2021 COMPARISON: 01/25/2020 HISTORY: Shortness of breath TECHNIQUE: Frontal and lateral views of the chest are obtained. FINDINGS: Scattered senescent parenchymal changes noted. Hyperinflation compatible with COPD. No evidence for infiltrate. No evidence for atelectasis. Right suprahilar nodular densities unchanged . Heart size is stable. Mediastinal structures are stable and grossly unremarkable. No evidence for hilar prominence. Degenerative changes dorsal spine. IMPRESSION: 1. No evidence for acute pulmonary disease.
[2021-02-16 12:25] LABS: ALT 18 U/L (4-49); AST 24 U/L (17-59); African American GFR (CKD) >90 (>60 ml/min/1.73 sqM); Albumin 3.9 g/dL (3.5-5.0); Alkaline Phosphatase 72 U/L (38-126); Anion Gap 5 mmol/L; Blood Urea Nitrogen 18 mg/dL (9-20); Calcium 8.8 mg/dL (8.4-10.2); Carbon Dioxide 26 mmol/L (22-30); Chloride 103 mmol/L (98-107); Glucose 102 mg/dL (74-99); Magnesium 1.8 mg/dL (1.6-2.3); Non-African American GFR(CKD) 80 (>60 ml/min/1.73 sqM); Sodium 134 mmol/L (137-145); Total Bilirubin 1.4 mg/dL (0.2-1.3)
[2021-02-16 13:10] LABS: Appearance,Urine Clear (Clear); Bilirubin,Urine Negative (Negative); Blood,Urine Negative (Negative); Color,Urine Light Yellow; Glucose,Urine (UA) Negative (Negative); Ketones,Urine Negative (Negative); Leukocyte Esterase,Urine Negative (Negative); Nitrite,Urine Negative (Negative); PH, Urine 7.5 (5.0-8.0); Protein,Urine Negative (Negative); Specific Gravity,Urine 1.007 (1.001-1.035); Urobilinogen,Urine <2.0 mg/dL (<2.0)
[2021-02-16] MEDS ORDERED: DILTIAZEM DRIP BOLUS FROM BAG 1 MG SOLN IV ONE (13:43)
[2021-02-16] MEDS ORDERED: NITROGLYCERIN SL TABS 0.4 MG TAB SUBLINGUAL PRN (13:59)
[2021-02-16] MEDS ORDERED: DILTIAZEM 125 MG in SODIUM CHLORIDE 0.9% 100 ML IV SCH (14:15)
--- NOTE | 2021-02-16 15:39 | P.HPIM ---
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 Patient is mildly hyponatremic probably mild volume depleted patient has not been drinking water when he walks and not been eating very well because of his issues with the tracheostomy and the prosthesis that connects the trachea and bronchi and some issues with trachea and esophagus area leading to dysphagia which is being addressed by his ENT doctor. Any fever chills patient the doesn't have any evidence of infection at this time patient came in with bradycardia which is ready cardiac later patient went into atrial fibrillation with rapid ventricular rate. Patient was started on Cardizem. Patient had normal ejection fraction the past patient does use Eliquis at home for her atrial fibrillation. She and had history of laryngeal cancer and had laryngectomy in the past presently uses artificial voice box REVIEW OF SYSTEMS: CONSTITUTIONAL: No fever, no malaise, no fatigue. HEENT: No recent visual problems or hearing problems. Denied any sore throat. CARDIOVASCULAR: No chest pain, orthopnea, PND, no palpitations, no syncope. PULMONARY: No shortness of breath, no cough, no hemoptysis. GASTROINTESTINAL: No diarrhea, no nausea, no vomiting, no abdominal pain. NEUROLOGICAL: No headaches, no weakness, no numbness. HEMATOLOGICAL: Denies any bleeding or petechiae. GENITOURINARY: Denies any burning micturition, frequency, or urgency. MUSCULOSKELETAL/RHEUMATOLOGICAL: Denies any joint pain, swelling, or any muscle pain. ENDOCRINE: Denies any polyuria or polydipsia. The rest of the 14-point review of systems is negative. PHYSICAL EXAMINATION: GENERAL: The patient is alert and oriented x3, not in any acute distress. Thin built HEENT: Pupils are round and equally reacting to light. EOMI. No scleral icterus. No conjunctival pallor. Normocephalic, atraumatic. No pharyngeal erythema. No thyromegaly is a tracheostomy in place. CARDIOVASCULAR: S1 and S2 present. No murmurs, rubs, or gallops. PULMONARY: Chest is clear to auscultation, no wheezing or crackles. ABDOMEN: Soft, nontender, nondistended, normoactive bowel sounds. No palpable organomegaly. MUSCULOSKELETAL: No joint swelling or deformity. EXTREMITIES: No cyanosis, clubbing, or pedal edema. NEUROLOGICAL: Gross neurological examination did not reveal any focal deficits. SKIN: No rashes. Assessment and plan -Syncope probably secondary to hypovolemia and the cardiac rhythm abnormalities. Patient wanted to etiology will be consulted, patient the is on Cardizem which will be weaned off will increase the metoprolol to 50 3 times a day. We continued on Eliquis -History of atrial fibrillation or sick sinus syndrome patient has proximal A. fib presently atrial fibrillation with rapid ventricular rate management as mentioned above -Hypovolemic hyponatremia gentle hydration dehydration may have contributed to his heart rhythm abnormalities and syncope -Upper lipidemia next and-hypertension -Benign prostatic hypertrophy -History of laryngeal cancer status post laryngectomy. DVT prophylaxis: Eliquis Past Medical History Past Medical History: Atrial Fibrillation, Cancer, Eye Disorder, Hyperlipidemia, Hypertension, Prostate Disorder, Thyroid Disorder Additional Past Medical History / Comment(s): artificial voice box, throat cancer, lung ca, hx of radiation, occasional SOB., cataract right eye. History of Any Multi-Drug Resistant Organisms: None Reported Additional Past Surgical History / Comment(s): total laryngectomy, bx of lung nodule, left cataract Past Anesthesia/Blood Transfusion Reactions: No Reported Reaction Additional Past Anesthesia/Blood Transfusion Reaction / Comment(s): has had laryngectomy Past Psychological History: No Psychological Hx Reported Smoking Status: Former smoker - Past Family History Mother Family Medical History: Cancer Additional Family Medical History / Comment(s): lung Medications and Allergies Home Medications Medication Instructions Recorded Confirmed Type Folic Acid 1 mg PO DAILY 02/03/16 02/16/21 History Simvastatin [Zocor] 20 mg PO HS 02/03/16 02/16/21 History Chlorhexidine Gluconate [Periogard] 15 ml PO HS 09/20/17 02/16/21 History Carboxymethylcellulose Sodium 1 drop BOTH EYES 5XD PRN 01/25/20 02/16/21 History [Refresh Tears] Metoprolol Tartrate [Lopressor] 50 mg PO BID 01/25/20 02/16/21 History Apixaban [Eliquis] 5 mg PO BID #60 tab 01/26/20 02/16/21 Rx Levothyroxine Sodium [Synthroid] 88 mcg PO DAILY 02/16/21 02/16/21 History Terazosin HCl 10 mg PO DAILY 02/16/21 02/16/21 History Vitamin B Complex 1 cap PO DAILY 02/16/21 02/16/21 History Allergies Allergy/AdvReac Type Severity Reaction Status Date / Time No Known Allergies Allergy Verified 02/16/21 11:15 Physical Exam Vitals: Vital Signs Temp Pulse Resp BP Pulse Ox 02/16/21 14:56 112 H 18 118/81 96 02/16/21 14:30 105 H 18 95 02/16/21 13:36 132 H 18 110/88 95 02/16/21 12:20 63 18 117/84 95 02/16/21 11:56 51 L 18 118/79 95 02/16/21 10:38 97.0 F L 50 L 18 132/59 95 Intake and Output 02/16/21 02/16/21 02/16/21 06:59 14:59 22:59 Other: Weight 68.039 kg Results CBC & Chem 7: 02/16/21 11:36 02/16/21 11:36 Labs: Abnormal Lab Results - Last 24 Hours (Table) 02/16/21 02/16/21 Range/Units 11:36 11:36 RBC 3.99 L (4.30-5.90) m/uL Hgb 12.4 L (13.0-17.5) gm/dL Hct 37.1 L (39.0-53.0) % Neutrophils # 8.8 H (1.3-7.7) k/uL Lymphocytes # 0.9 L (1.0-4.8) k/uL Sodium 134 L (137-145) mmol/L Glucose 102 H (74-99) mg/dL Total Bilirubin 1.4 H (0.2-1.3) mg/dL
[2021-02-16] MEDS: SODIUM CHLORIDE 0.9% 1,000 ML IV SCH (17:20)
[2021-02-16] MEDS: METOPROLOL TARTRATE 50 MG TAB PO SCH ×2 (17:20→21:23)
[2021-02-16 17:21] VITALS: RESP 18
[2021-02-16] MEDS ORDERED: ATORVASTATIN 10 MG TAB PO SCH (21:00)
[2021-02-16] MEDS ORDERED: CHLORHEXIDINE GLUCONATE 15 ML CUP MUCOUS MEM SCH (21:00)
[2021-02-16] MEDS: APIXABAN 5 MG TAB PO SCH (21:23)
[2021-02-17] MEDS: SODIUM CHLORIDE 0.9% 1,000 ML IV SCH (06:13)
[2021-02-17] MEDS ORDERED: LEVOTHYROXINE 88 MCG TAB PO SCH (06:30)
[2021-02-17 08:17] VITALS: BP 111/53; PULSE 75; TEMP 97.4
[2021-02-17] MEDS: METOPROLOL TARTRATE 50 MG TAB PO SCH (08:23)
[2021-02-17] MEDS: APIXABAN 5 MG TAB PO SCH (08:23)
[2021-02-17] MEDS ORDERED: FOLIC ACID-VIT B COMPLEX-VIT C 1 CAP PO SCH (09:00)
[2021-02-17] MEDS ORDERED: ASPIRIN 325 MG TAB PO SCH (09:00)
[2021-02-17] MEDS ORDERED: FOLIC ACID 1 MG TAB PO SCH (09:00)
[2021-02-17] MEDS ORDERED: DOXAZOSIN 4 MG TAB PO SCH (09:00)
[2021-02-17 09:23] LABS: HCT 38.6 % (39.0-53.0); MCH 31.1 pg (25.0-35.0); MCHC 33.6 g/dL (31.0-37.0); MCV 92.5 fL (80.0-100.0); Mean Platelet Volume 7.1; Platelet Count 210 k/uL (150-450); RBC 4.18 m/uL (4.30-5.90); RDW 12.8 % (11.5-15.5); WBC 7.4 k/uL (3.8-10.6)
[2021-02-17 09:36] LABS: African American GFR (CKD) >90 (>60 ml/min/1.73 sqM); Anion Gap 6 mmol/L; Blood Urea Nitrogen 14 mg/dL (9-20); Calcium 8.8 mg/dL (8.4-10.2); Carbon Dioxide 26 mmol/L (22-30); Chloride 103 mmol/L (98-107); Glucose 123 mg/dL (74-99); Magnesium 1.8 mg/dL (1.6-2.3); Non-African American GFR(CKD) 84 (>60 ml/min/1.73 sqM); Potassium 3.9 mmol/L (3.5-5.1); Sodium 135 mmol/L (137-145)
--- NOTE | 2021-02-17 10:38 | P.CRDCN ---
History of Present Illness Consult date: 02/17/21 Chief complaint: Atrial fibrillation management History of present illness: The patient is a pleasant 75-year-old gentleman who sees Dr. Lr as an outpatient with a past medical history significant for permanent atrial fibrillation on oral anticoagulation as well as history of laryngeal cancer status post laryngectomy was admitted to the hospital with a change in mental status. 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 He does not recall having any warm feeling around the episode nor symptoms of nausea or vomiting no symptoms of chest pain or chest discomfort or shortness of breath. For that reason he was brought to the hospital. Upon presenting to the hospital he was in A. fib with RVR. He is known to have permanent atrial fibrillation. He was also found to have some dehydration. He denies any symptoms of fever or chills. The patient was seen and evaluated this morning. The workup came in to be unremarkable overall. He is currently in atrial fibrillation was controlled heart rate and he is also on oral anticoagulation. He is asking to go home. As a matter of fact he is stable to be discharged home and from the cardiac standpoint of view, the patient can be discharged home and follows with Dr. Lr as an outpatient. Past Medical History Past Medical History: Atrial Fibrillation, Cancer, Eye Disorder, Hyperlipidemia, Hypertension, Prostate Disorder, Thyroid Disorder Additional Past Medical History / Comment(s): artificial voice box, throat ca, lung ca, hx of radiation, occasional SOB, cataract right eye History of Any Multi-Drug Resistant Organisms: None Reported Additional Past Surgical History / Comment(s): total laryngectomy, bx of lung nodule, left cataract Past Anesthesia/Blood Transfusion Reactions: No Reported Reaction Additional Past Anesthesia/Blood Transfusion Reaction / Comment(s): has had laryngectomy Past Psychological History: No Psychological Hx Reported Smoking Status: Former smoker Past Alcohol Use History: Daily Additional Past Alcohol Use History / Comment(s): quit smoking in 1993. Drinks 1 beer daily Past Drug Use History: None Reported - Past Family History Mother Family Medical History: Cancer Additional Family Medical History / Comment(s): lung Medications and Allergies Home Medications Medication Instructions Recorded Confirmed Type Folic Acid 1 mg PO DAILY 02/03/16 02/16/21 History Simvastatin [Zocor] 20 mg PO HS 02/03/16 02/16/21 History Chlorhexidine Gluconate [Periogard] 15 ml PO HS 09/20/17 02/16/21 History Carboxymethylcellulose Sodium 1 drop BOTH EYES 5XD PRN 01/25/20 02/16/21 History [Refresh Tears] Metoprolol Tartrate [Lopressor] 50 mg PO BID 01/25/20 02/16/21 History Apixaban [Eliquis] 5 mg PO BID #60 tab 01/26/20 02/16/21 Rx Levothyroxine Sodium [Synthroid] 88 mcg PO DAILY 02/16/21 02/16/21 History Terazosin HCl 10 mg PO DAILY 02/16/21 02/16/21 History Vitamin B Complex 1 cap PO DAILY 02/16/21 02/16/21 History Allergies Allergy/AdvReac Type Severity Reaction Status Date / Time No Known Allergies Allergy Verified 02/16/21 11:15 Physical Exam Vitals: Vital Signs Temp Pulse Pulse Resp BP BP Pulse Ox 02/17/21 08:00 97.4 F L 75 18 111/53 95 02/17/21 04:00 98.0 F 69 18 107/55 94 L 02/17/21 00:00 97.6 F 54 L 18 113/56 97 02/16/21 20:00 98.6 F 105 H 18 102/65 94 L 02/16/21 19:47 84 18 98/67 95 02/16/21 17:20 114 H 18 114/65 96 02/16/21 16:40 105 H 16 104/73 96 02/16/21 14:56 112 H 18 118/81 96 02/16/21 14:30 105 H 18 95 02/16/21 13:36 132 H 18 110/88 95 02/16/21 12:20 63 18 117/84 95 02/16/21 11:56 51 L 18 118/79 95 02/16/21 10:38 97.0 F L 50 L 18 132/59 95 Intake and Output 02/16/21 02/17/21 02/17/21 22:59 06:59 14:59 Intake Total 10 118 Output Total 500 Balance 10 -500 118 Intake: IV 10 Invasive Line 1 10 Oral 118 Output: Urine 500 Other: Voiding Method Urinal Urinal Weight 68.039 kg - Constitutional General appearance: no acute distress - Respiratory Respiratory: bilateral: CTA - Cardiovascular Rhythm: irregularly irregular Results 02/17/21 08:58 02/17/21 08:58 Cardiac Enzymes 02/16/21 02/16/21 02/16/21 Range/Units 11:36 11:36 14:59 AST 24 (17-59) U/L Troponin I <0.012 <0.012 (0.000-0.034) ng/mL 02/16/21 Range/Units 17:24 AST (17-59) U/L Troponin I <0.012 (0.000-0.034) ng/mL Coagulation 02/16/21 Range/Units 11:36 PT 11.7 (9.0-12.0) sec APTT 26.2 (22.0-30.0) sec CBC 02/16/21 02/17/21 Range/Units 11:36 08:58 WBC 10.3 7.4 (3.8-10.6) k/uL RBC 3.99 L 4.18 L (4.30-5.90) m/uL Hgb 12.4 L 13.0 (13.0-17.5) gm/dL Hct 37.1 L 38.6 L (39.0-53.0) % Plt Count 186 210 (150-450) k/uL Comprehensive Metabolic Panel 02/16/21 02/17/21 Range/Units 11:36 08:58 Sodium 134 L 135 L (137-145) mmol/L Potassium 4.0 3.9 (3.5-5.1) mmol/L Chloride 103 103 (98-107) mmol/L Carbon Dioxide 26 26 (22-30) mmol/L BUN 18 14 (9-20) mg/dL Creatinine 0.93 0.88 (0.66-1.25) mg/dL Glucose 102 H 123 H (74-99) mg/dL Calcium 8.8 8.8 (8.4-10.2) mg/dL AST 24 (17-59) U/L ALT 18 (4-49) U/L Alkaline Phosphatase 72 (38-126) U/L Total Protein 7.0 (6.3-8.2) g/dL Albumin 3.9 (3.5-5.0) g/dL Current Medications Generic Name Dose Route Start Last Admin Trade Name Freq PRN Reason Stop Dose Admin Apixaban 5 mg 02/16/21 21:00 02/17/21 08:23 Apixaban 5 Mg Tab PO 5 mg BID ALFA Administration Protocol Aspirin 325 mg 02/17/21 09:00 02/17/21 08:23 Aspirin 325 Mg Tab PO 325 mg DAILY ALFA Administration Atorvastatin Calcium 10 mg 02/16/21 21:00 02/16/21 21:23 Atorvastatin 10 Mg Tab PO 10 mg HS ALFA Administration Chlorhexidine Gluconate 15 ml 02/16/21 21:00 02/16/21 21:23 Chlorhexidine Gluconate 15 Ml Cup MUCOUS MEM 15 ml HS ALFA Administration Doxazosin Mesylate 8 mg 02/17/21 09:00 02/17/21 08:23 Doxazosin 4 Mg Tab PO 8 mg DAILY ALFA Administration Folic Acid 1 mg 02/17/21 09:00 02/17/21 08:23 Folic Acid 1 Mg Tab PO 1 mg DAILY ALFA Administration Sodium Chloride 1,000 mls @ 75 mls/hr 02/16/21 15:30 02/17/21 06:13 Saline 0.9% IV 75 mls/hr .[id number] ALFA Administration Levothyroxine Sodium 88 mcg 02/17/21 06:30 02/17/21 06:13 Levothyroxine 88 Mcg Tab PO 88 mcg DAILY@0630 ALFA Administration Metoprolol Tartrate 50 mg 02/16/21 16:00 02/17/21 08:23 Metoprolol Tartrate 50 Mg Tab PO 50 mg TID ALFA Administration Multivit/Ca Carb/B Cmplx/FA/Prenat 1 each 02/17/21 09:00 02/17/21 08:28 Folic Acid-Vit B Complex-Vit C 1 Cap PO Not Given DAILY ALFA Nitroglycerin 0.4 mg 02/16/21 13:59 Nitroglycerin Sl Tabs 0.4 Mg Tab SUBLINGUAL Q5M PRN Chest Pain Intake and Output 02/16/21 02/17/21 02/17/21 22:59 06:59 14:59 Intake Total 10 118 Output Total 500 Balance 10 -500 118 Intake: IV 10 Invasive Line 1 10 Oral 118 Output: Urine 500 Other: Voiding Method Urinal Urinal Weight 68.039 kg 02/17/21 08:58 02/17/21 08:58 Assessment and Plan Assessment: Assessment #1 permanent atrial fibrillation #2 history of laryngeal cancer Plan #1 the patient is in A. fib with controlled heart rate #2 continue oral anticoagulation #3 the patient can be discharged home
--- NOTE | 2021-02-17 11:29 | P.DS ---
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 Patient is mildly hyponatremic probably mild volume depleted patient has not been drinking water when he walks and not been eating very well because of his issues with the tracheostomy and the prosthesis that connects the trachea and bronchi and some issues with trachea and esophagus area leading to dysphagia which is being addressed by his ENT doctor. Any fever chills patient the doesn't have any evidence of infection at this time patient came in with bradycardia which is ready cardiac later patient went into atrial fibrillation with rapid ventricular rate. Patient was started on Cardizem. Patient had normal ejection fraction the past patient does use Eliquis at home for her atrial fibrillation. She and had history of laryngeal cancer and had laryngectomy in the past presently uses artificial voice box 02/17/2021 Patient was switched to every 8 hourly metoprolol patient converted to sinus rhythm cardiology evaluated the patient is recommending discharge and every 8 hourly of metoprolol. 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 PHYSICAL EXAMINATION: GENERAL: The patient is alert and oriented x3, not in any acute distress. Thin built HEENT: Pupils are round and equally reacting to light. EOMI. No scleral icterus. No conjunctival pallor. Normocephalic, atraumatic. No pharyngeal erythema. No thyromegaly is a tracheostomy in place. CARDIOVASCULAR: S1 and S2 present. No murmurs, rubs, or gallops. PULMONARY: Chest is clear to auscultation, no wheezing or crackles. ABDOMEN: Soft, nontender, nondistended, normoactive bowel sounds. No palpable organomegaly. MUSCULOSKELETAL: No joint swelling or deformity. EXTREMITIES: No cyanosis, clubbing, or pedal edema. NEUROLOGICAL: Gross neurological examination did not reveal any focal deficits. SKIN: No rashes. Assessment and plan -Syncope probably secondary to hypovolemia and the cardiac rhythm abnormalities. Her to sinus rhythm and patient will continue metoprolol to 50 3 times a day. continued on Eliquis -Hypovolemic hyponatremia gentle hydration dehydration improved now -HyperLipidemia -hypertension -Benign prostatic hypertrophy -History of laryngeal cancer status post laryngectomy. Plan - Discharge Summary Discharge Rx Participant: No New Discharge Prescriptions: New Metoprolol Tartrate [Lopressor] 50 mg PO TID tab Continue Simvastatin [Zocor] 20 mg PO HS Folic Acid 1 mg PO DAILY Chlorhexidine Gluconate [Periogard] 15 ml PO HS Carboxymethylcellulose Sodium [Refresh Tears] 1 drop BOTH EYES 5XD PRN PRN Reason: dry eyes Apixaban [Eliquis] 5 mg PO BID #60 tab Terazosin HCl 10 mg PO DAILY Levothyroxine Sodium [Synthroid] 88 mcg PO DAILY Vitamin B Complex 1 cap PO DAILY Discontinued Metoprolol Tartrate [Lopressor] 50 mg PO BID Discharge Medication List Folic Acid 1 mg PO DAILY 02/03/16 [History] Simvastatin [Zocor] 20 mg PO HS 02/03/16 [History] Chlorhexidine Gluconate [Periogard] 15 ml PO HS 09/20/17 [History] Carboxymethylcellulose Sodium [Refresh Tears] 1 drop BOTH EYES 5XD PRN 01/25/20 [History] Apixaban [Eliquis] 5 mg PO BID #60 tab 01/26/20 [Rx] Levothyroxine Sodium [Synthroid] 88 mcg PO DAILY 02/16/21 [History] Terazosin HCl 10 mg PO DAILY 02/16/21 [History] Vitamin B Complex 1 cap PO DAILY 02/16/21 [History] Metoprolol Tartrate [Lopressor] 50 mg PO TID tab 02/17/21 [Rx] Follow up Appointment(s)/Referral(s): Shiva Lr MD [STAFF PHYSICIAN] - 1 Week [facility]Clinic [Primary Care Provider] - 3 Days Discharge Disposition: HOME SELF-CARE
[2021-02-17 18:14] LABS: Chol/HDL Ratio 2.62 Ratio; LDL Cholesterol,Calculated 72.9 mg/dL (0.0-131.0); VLDL Calculation 13.02 mg/dL (5.00-40.00)
== END 2021-02-17 13:14 | disposition home or self-care (01) | DRG 641 ==
LOC: EC 10:35 → 3SCARD 14:16
PROVIDERS: ADMIT Internal Medicine; ATTEND Internal Medicine
DX: E86.1 Hypovolemia (principal); I48.21 Permanent atrial fibrillation; R55 Syncope and collapse; E86.0 Dehydration; E87.1 Hypo-osmolality and hyponatremia; E78.5 Hyperlipidemia, unspecified; Z20.822 Contact with and (suspected) exposure to COVID-19; I10 Essential (primary) hypertension; N40.0 Benign prostatic hyperplasia without lower urinary tract symptoms; Z79.01 Long term (current) use of anticoagulants; Z79.890 Hormone replacement therapy; Z79.899 Other long term (current) drug therapy; Z85.118 Personal history of other malignant neoplasm of bronchus and lung; Z85.21 Personal history of malignant neoplasm of larynx; Z85.819 Personal history of malignant neoplasm of unspecified site of lip, oral cavity, and pharynx; Z87.891 Personal history of nicotine dependence; Z92.3 Personal history of irradiation; Z98.42 Cataract extraction status, left eye; Z98.41 Cataract extraction status, right eye
CPT/HCPCS: 36415; 71046; 80048; 80053; 80061; 81003; 83735; 84484; 85025; 85027; 85610; 85730; 87635; 93005; 96360; 96361; 99291

== ENCOUNTER → 2021-09-14 | Outpatient (CLI) | payer OTHER ==
[2021-09-14 12:02] LABS: African American GFR (CKD) >90 (>60 ml/min/1.73 sqM); Blood Urea Nitrogen 14 mg/dL (9-20); Non-African American GFR(CKD) 80 (>60 ml/min/1.73 sqM)
--- NOTE | 2021-09-14 14:10 | CT ---
EXAMINATION TYPE: CT chest wo/w con DATE OF EXAM: 09/14/2021 COMPARISON: 08/19/2020 HISTORY: 76-year-old male C34.11 Malignant neoplasm of upper lobe, upper lung, hx larynx ca. TECHNIQUE: Contiguous axial scanning of the chest before and after the administration of 70 mL of Iso yo 300. Coronal/sagittal reconstructions performed. CT DLP: 414.10mGycm. Automatic exposure control utilized for a dose reduction. FINDINGS: Heart normal size without pericardial effusion. Extensive three-vessel coronary artery calcifications are present and unremarkable for coronary artery disease. Mild atherosclerotic calcifications throughout the thoracic aorta with conventional arch vessel branc lang anatomy. There is a severe focal stenosis at the proximal right common carotid artery. There is a tracheostomy stoma. No thoracic lymphadenopathy by CT size criteria. Irregular pleural based thickening posterior right upper lobe has slightly increased in thickness at 1.1 cm versus 7 mm, previously. A second irregular bandlike focal opacity right upper lung extending to the right hilum estimated to measure 4.7 x 1.5 cm is relatively unchanged. Bandlike scarring right lower lobe is unchanged. Vague bilateral left lower lobe groundglass focus measuring 8 mm, axial image 46 remains unchanged. Mild emphysematous change. No consolidation or pleural effusion otherwise seen. Tiny hiatal hernia. Unchanged benign cyst measuring 1.3 cm anterior right hepatic dome. Bones digital throughout the mid to lower thoracic spine. Degenerative change bilateral sternoclavicu lar joints. Accentuated upper thoracic kyphosis. Chronic Schmorl's node superior endplate T5. IMPRESSION: 1. COPD with mild emphysema. Right hilar/right upper lobe bandlike opacity remains unchanged, likely site of treated disease. 2. Irregular subpleural opacity posterior right upper lobe has increased in thickness now 1.1 cm vers us 7 mm, previously. Short interval follow-up recommended to exclude developing neoplasm here. 3. CAD with extensive three-vessel coronary artery calcifications. 4. Severe focal stenosis proximal right common carotid artery.
== END | disposition home or self-care (01) ==
LOC: RADCTMAIN 10:51
PROVIDERS: ATTEND Radiology Radiation Oncology
DX: C34.11 Malignant neoplasm of upper lobe, right bronchus or lung (principal); J43.9 Emphysema, unspecified; R91.8 Other nonspecific abnormal finding of lung field
CPT/HCPCS: 82565; 84520; 71270; 36415; Q9967

== ENCOUNTER 2021-12-30 13:12 | Emergency (ER) | payer OTHER ==
[2021-12-30 13:19] VITALS: TEMP 97.4
--- NOTE | 2021-12-30 14:01 | ED ---
ENT HPI - General Chief complaint: ENT Stated complaint: weakness Time Seen by Provider: 12/30/21 13:26 Source: patient, RN notes reviewed Mode of arrival: ambulatory Limitations: no limitations - History of Present Illness Initial comments: Patient is a pleasant 76-year-old male presenting to the emergency room with complaints of a piece food stuck in his throat with the inability to swallow completely for the last 3 days. He reports that he had warmed up a frozen pizza and cut his beat into many small pieces however he believes he may been eating the food too fast as he has not had pizza and some time and has poor dentition resulting in insufficient chewing at times. He has had food stuck in his throat in the past and required ECT previously. He is able to swallow water as long as he is upright when doing so. He denies any shortness of breath or cough. He has a past medical history significant for lung and throat cancer with radiation, surgery and artificial voice box. His initial treatment for his cancer was completed at the [facility] and symphysis go any now follows at the [facility] and [facility] where his speech pathologist is located. He has a prosthesis in his throat which was recently adjusted by a speech pathologist and has been in for approximately 30 days and prior to 3 days ago he is not having any difficulty swallowing. In addition to his cancer history he has past medical history significant for paroxysmal atrial fibrillation, hypertension, hyperlipidemia, BPH and hypothyroidism. - Related Data Home Medications Medication Instructions Recorded Confirmed Folic Acid 1 mg PO DAILY 02/03/16 02/16/21 Simvastatin [Zocor] 20 mg PO HS 02/03/16 02/16/21 Chlorhexidine Gluconate [Periogard] 15 ml PO HS 09/20/17 02/16/21 Carboxymethylcellulose Sodium 1 drop BOTH EYES 5XD PRN 01/25/20 02/16/21 [Refresh Tears] Levothyroxine Sodium [Synthroid] 88 mcg PO DAILY 02/16/21 02/16/21 Terazosin HCl 10 mg PO DAILY 02/16/21 02/16/21 Vitamin B Complex 1 cap PO DAILY 02/16/21 02/16/21 Previous Rx's Medication Instructions Recorded Apixaban [Eliquis] 5 mg PO BID #60 tab 01/26/20 Metoprolol Tartrate [Lopressor] 50 mg PO TID tab 02/17/21 Allergies Allergy/AdvReac Type Severity Reaction Status Date / Time No Known Allergies Allergy Verified 12/30/21 13:19 Review of Systems ROS Statement: Those systems with pertinent positive or pertinent negative responses have been documented in the HPI. ROS Other: All systems not noted in ROS Statement are negative. Past Medical History Past Medical History: Atrial Fibrillation, Cancer, Eye Disorder, Hyperlipidemia, Hypertension, Prostate Disorder, Thyroid Disorder Additional Past Medical History / Comment(s): artificial voice box, throat ca, lung ca, hx of radiation, occasional SOB, cataract right eye History of Any Multi-Drug Resistant Organisms: None Reported Additional Past Surgical History / Comment(s): total laryngectomy, bx of lung nodule, left cataract Past Anesthesia/Blood Transfusion Reactions: No Reported Reaction Additional Past Anesthesia/Blood Transfusion Reaction / Comment(s): has had laryngectomy Past Psychological History: No Psychological Hx Reported Smoking Status: Former smoker Past Alcohol Use History: Daily Past Drug Use History: None Reported - Past Family History Mother Family Medical History: Cancer Additional Family Medical History / Comment(s): lung General Exam Limitations: no limitations ENT exam: Present: other (No evidence of foreign object in the oropharynx visualized no erythema or edema.) Expanded Teeth exam: Present: dental caries, fractured tooth # Neck exam: Present: other (Scar tissue with prosthesis noted. Unable to palpate trachea adequately. Tracheostomy stoma scar noted.) Respiratory exam: Present: normal lung sounds bilaterally. Absent: respiratory distress, wheezes, rales, rhonchi, stridor Cardiovascular Exam: Present: regular rate, normal rhythm, normal heart sounds. Absent: systolic murmur, diastolic murmur, rubs, gallop, clicks GI/Abdominal exam: Present: soft, normal bowel sounds. Absent: distended, tenderness, guarding, rebound, rigid Rectal exam: Present: deferred Extremities exam: Present: normal inspection. Absent: pedal edema, joint swelling Back exam: Present: normal inspection Neurological exam: Present: alert, oriented X3, CN II-XII intact Psychiatric exam: Present: normal affect, normal mood Skin exam: Present: warm, dry, intact, normal color. Absent: rash Course Vital Signs 12/30/21 12/30/21 13:14 17:10 Temperature 97.4 F L Pulse Rate 73 112 H Respiratory 20 18 Rate Blood Pressure 100/44 134/91 O2 Sat by Pulse 100 99 Oximetry Medical Decision Making - Medical Decision Making 76-year-old male presenting with complaints of stuck food product in his throat 3 days with significant past surgical history to his throat secondary to throat and lung cancer. Will obtain barium swallow evaluation to evaluate patency of esophagus and need for intervention by GI. If need for GI intervention patient will need transfer to alternate this time. Airway compromise noted. Patient resting comfortably. Findings of the modified swallow exam reviewed via phone with speech pathologist whom states no ability to clear food bolus due to lack of muscle movement and possible gentleman prosthesis. Recommendation by speech pathologist is for transfer to another facility with the capability of GI and ENT services who specialize with his current prosthetic. Given lack of wall motion computed tomography scan of the brain is also recommended to rule out stroke. Low probability of CVA in the setting of chronic condition with previous episodes however will obtain CT of the brain to rule out CVA. Will check CBC and BMP along with COVID swap to initiate transfer process to the [facility] where patient is established for his ENT, speech pathology and GI care. Availability available at [facility]. Spoke with Dr. Osborne at [facility] emergency room regarding patient's presentation and findings here along with his need for GI and ENT services. She is accepting of transfer to [facility] ER. Overall CBC and BMP stable with mildly elevated BUN. COVID swap negative. If continued poor oral intake will need IV fluids however will defer as patient is to be transferred. Patient medically stable will arrange transport for transfer from ER to ER. Case discussed with Dr. King. - Lab Data Result diagrams: 12/30/21 15:27 12/30/21 15:27 Lab Results 12/30/21 12/30/21 12/30/21 Range/Units 15:27 15:27 16:26 WBC 9.8 (3.8-10.6) k/uL RBC 4.51 (4.30-5.90) m/uL Hgb 13.8 (13.0-17.5) gm/dL Hct 40.8 (39.0-53.0) % MCV 90.6 (80.0-100.0) fL MCH 30.7 (25.0-35.0) pg MCHC 33.8 (31.0-37.0) g/dL RDW 12.5 (11.5-15.5) % Plt Count 216 (150-450) k/uL MPV 7.4 Neutrophils % 85 % Lymphocytes % 8 % Monocytes % 5 % Eosinophils % 1 % Basophils % 1 % Neutrophils # 8.3 H (1.3-7.7) k/uL Lymphocytes # 0.8 L (1.0-4.8) k/uL Monocytes # 0.5 (0-1.0) k/uL Eosinophils # 0.1 (0-0.7) k/uL Basophils # 0.0 (0-0.2) k/uL Sodium 136 L (137-145) mmol/L Potassium 4.7 (3.5-5.1) mmol/L Chloride 101 (98-107) mmol/L Carbon Dioxide 18 L (22-30) mmol/L Anion Gap 17 mmol/L BUN 26 H (9-20) mg/dL Creatinine 1.09 (0.66-1.25) mg/dL Est GFR (CKD-EPI)AfAm 76 (>60 ml/min/1.73 sqM) Est GFR (CKD-EPI)NonAf 66 (>60 ml/min/1.73 sqM) Glucose 92 (74-99) mg/dL Calcium 9.3 (8.4-10.2) mg/dL Coronavirus (PCR) Not Detected (Not Detectd) - Radiology Data Radiology results: report reviewed, image reviewed Fluoroscopy barium swallow with video findings show just torsion of normal anatomy due to previous histories with abrupt flow stoppage of concentration around the C6 level with hypopharyngeal airway without passage into the proximal esophagus. Well-defined cut off area concern for obstructing foreign object. No penetration or aspiration. CT of the brain age-related atrophic changes without acute intracranial process. Disposition Clinical Impression: Dysphagia Disposition: OTHER INSTITUTION NOT DEFINED Condition: Stable Is patient prescribed a controlled substance at d/c from ED?: No Referrals: [facility],Clinic [Primary Care Provider] - 1-2 days Time of Disposition: 18:19 - Out of Hospital Transfer - Req. Specs Out of Hospital Transfer - Requested Specifics: Other Emergency Center (ER to ER, transferred to [facility] emergency room accepting physician Dr. Osborne)
--- NOTE | 2021-12-30 15:04 | FL ---
EXAMINATION TYPE: FL barium swallow w video DATE OF EXAM: 12/30/2021 MODIFIED SWALLOW / DEGLUTITION STUDY CLINICAL HISTORY: Dysphagia. TECHNIQUE: Deglutition study is performed utilizing thin liquid barium. 25 seconds of fluoro time a nd 0 images obtained. History of throat cancer 30 years ago. COMPARISON: None. FINDINGS: Distortion of normal anatomy due to history. There is abrupt stop flow of contrast at rough ly C6 level in the hypopharyngeal airway without passage into the proximal esophagus. Fairly well-def ined cut off. Obstructing foreign body is suspected. No penetration or aspiration seen. IMPRESSION: As above. Please refer to speech therapist notes for further details if necessary.
[2021-12-30 15:50] LABS: Basophils % (A) 1 %; Eosinophils # (A) 0.1 k/uL (0-0.7); Eosinophils % (A) 1 %; HCT 40.8 % (39.0-53.0); HGB 13.8 gm/dL (13.0-17.5); Lymphocytes # (A) 0.8 k/uL (1.0-4.8); Lymphocytes % (A) 8 %; MCH 30.7 pg (25.0-35.0); MCHC 33.8 g/dL (31.0-37.0); MCV 90.6 fL (80.0-100.0); Mean Platelet Volume 7.4; Monocytes # (A) 0.5 k/uL (0-1.0); Monocytes % (A) 5 %; Neutrophils # (A) 8.3 k/uL (1.3-7.7); Neutrophils % (A) 85 %; Platelet Count 216 k/uL (150-450); RBC 4.51 m/uL (4.30-5.90); RDW 12.5 % (11.5-15.5); WBC 9.8 k/uL (3.8-10.6)
--- NOTE | 2021-12-30 15:58 | CT ---
EXAMINATION TYPE: CT brain wo con DATE OF EXAM: 12/30/2021 COMPARISON: 11/28/2012 HISTORY: Weakness CT DLP: 1188.[address] of the brain was performed. The ventricles, basal cisterns and sulci overlying the cerebral convexities demonstrate mild enlargem ent. There is no evidence for intracranial hemorrhage or sulcal effacement. There is decreased attenuation about the periventricular white matter and deep white matter of both c erebral hemispheres, compatible with chronic small vessel ischemia. Differential diagnosis does inclu de demyelination. No mass effects are seen.No midline shift. Osseous calvarium is intact. If symptoms persist consider MRI. IMPRESSION: 1. Age related atrophic and chronic small vessel ischemic change without acute intracranial process s een at this time.
[2021-12-30 16:21] LABS: Calcium 9.3 mg/dL (8.4-10.2); Potassium 4.7 mmol/L (3.5-5.1)
[2021-12-30 17:11] VITALS: BP 134/91; PULSE 112; RESP 18
== END 2021-12-30 19:39 | disposition other institution (70) ==
LOC: EC 13:12
DX: R13.10 Dysphagia, unspecified (principal); I48.91 Unspecified atrial fibrillation; C80.1 Malignant (primary) neoplasm, unspecified; E78.5 Hyperlipidemia, unspecified; I10 Essential (primary) hypertension; N42.9 Disorder of prostate, unspecified; E07.9 Disorder of thyroid, unspecified; Z87.891 Personal history of nicotine dependence; Z79.02 Long term (current) use of antithrombotics/antiplatelets; Z79.890 Hormone replacement therapy; Z79.899 Other long term (current) drug therapy
CPT/HCPCS: 36415; 70450; 74230; 80048; 85025; 87635; 99285

== ENCOUNTER 2022-01-08 21:59 | Inpatient (IN) | payer OTHER ==
[2022-01-08] MEDS ORDERED: SODIUM CHLORIDE 0.9% 500 ML 500 ML IV STA (22:54)
--- NOTE | 2022-01-08 23:02 | ED ---
General Adult HPI - General Chief complaint: Syncope Stated complaint: near syncope Time Seen by Provider: 01/08/22 22:54 Source: EMS Mode of arrival: EMS Limitations: no limitations, language barrier (Patient difficult to understand due to the voice modulated artificial larynx.) - History of Present Illness Initial comments: This is a pleasant 76-year-old male with a history of lung cancer, throat cancer and artificial voice box. Patient has had the cancer for several years and initially had surgery in [place]. Patient was seen here last week for esophageal foreign body. Patient had to be transferred plan: For esophageal foreign body retrieval at that time was noted he had esophageal stricture. Apparently he has a referral to the [facility] for esophageal dilation. Patient had a feeding tube placed and was discharged yesterday. Since being home the patient has had 2 syncopal episodes. He is denying any injury. Only plate was lightheadedness. Patient believes that he has a hard time getting oxygen past the laryngeal tube. Denying any head or neck injury. No headache, no fever or chills, no changes in vision or hearing, no sore throat or difficulty with speech, no neck pain, no chest pain, no abdominal pain, no nausea or vomiting, no changes in urination or bowel movements, no numbness or tingling, no extremity pain, no skin rashes or lesions. Past medical, surgical, social, and family history reviewed. - Related Data Home Medications Medication Instructions Recorded Confirmed Folic Acid 1 mg PO DAILY 02/03/16 02/16/21 Simvastatin [Zocor] 20 mg PO HS 02/03/16 02/16/21 Chlorhexidine Gluconate [Periogard] 15 ml PO HS 09/20/17 02/16/21 Carboxymethylcellulose Sodium 1 drop BOTH EYES 5XD PRN 01/25/20 02/16/21 [Refresh Tears] Levothyroxine Sodium [Synthroid] 88 mcg PO DAILY 02/16/21 02/16/21 Terazosin HCl 10 mg PO DAILY 02/16/21 02/16/21 Vitamin B Complex 1 cap PO DAILY 02/16/21 02/16/21 Previous Rx's Medication Instructions Recorded Apixaban [Eliquis] 5 mg PO BID #60 tab 01/26/20 Metoprolol Tartrate [Lopressor] 50 mg PO TID tab 02/17/21 Allergies Allergy/AdvReac Type Severity Reaction Status Date / Time No Known Allergies Allergy Verified 01/08/22 22:12 Review of Systems ROS Statement: Those systems with pertinent positive or pertinent negative responses have been documented in the HPI. ROS Other: All systems not noted in ROS Statement are negative. Past Medical History Past Medical History: Atrial Fibrillation, Cancer, Eye Disorder, Hyperlipidemia, Hypertension, Prostate Disorder, Thyroid Disorder Additional Past Medical History / Comment(s): artificial voice box, throat ca, lung ca, hx of radiation, occasional SOB, cataract right eye History of Any Multi-Drug Resistant Organisms: None Reported Additional Past Surgical History / Comment(s): total laryngectomy, bx of lung nodule, left cataract Past Anesthesia/Blood Transfusion Reactions: No Reported Reaction Additional Past Anesthesia/Blood Transfusion Reaction / Comment(s): has had laryngectomy Past Psychological History: No Psychological Hx Reported Smoking Status: Former smoker Past Alcohol Use History: Daily Past Drug Use History: None Reported - Past Family History Mother Family Medical History: Cancer Additional Family Medical History / Comment(s): lung General Exam Limitations: no limitations General appearance: alert, in no apparent distress Head exam: Present: atraumatic, normocephalic, normal inspection Eye exam: Present: normal appearance, PERRL, EOMI. Absent: scleral icterus, conjunctival injection, periorbital swelling ENT exam: Present: normal exam, mucous membranes moist Neck exam: Present: normal inspection, other (Postsurgical scarring noted.). Absent: tenderness, meningismus, lymphadenopathy Respiratory exam: Present: normal lung sounds bilaterally. Absent: respiratory distress, wheezes, rales, rhonchi, stridor, chest wall tenderness, accessory muscle use Cardiovascular Exam: Present: regular rate, normal rhythm, normal heart sounds. Absent: systolic murmur, diastolic murmur, rubs, gallop, clicks GI/Abdominal exam: Present: soft, normal bowel sounds, other (Feeding tube in place, left abdomen). Absent: distended, tenderness, guarding, rebound, rigid Extremities exam: Present: normal inspection, full ROM, normal capillary refill. Absent: tenderness, pedal edema, joint swelling, calf tenderness Back exam: Present: normal inspection Neurological exam: Present: alert, oriented X3, CN II-XII intact Psychiatric exam: Present: normal affect, normal mood Skin exam: Present: warm, dry, intact, normal color. Absent: rash Course Vital Signs 01/08/22 01/08/22 01/09/22 22:06 23:24 01:06 Temperature 97.5 F L Pulse Rate 70 62 84 Respiratory 18 15 22 Rate Blood Pressure 94/57 84/53 104/64 O2 Sat by Pulse 93 L 92 L 93 L Oximetry Fraction of Inspired Oxygen (FIO2) 01/09/22 01/09/22 01/09/22 01:15 02:21 02:54 Temperature 97.6 F Pulse Rate 73 Respiratory 19 Rate Blood Pressure 97/57 O2 Sat by Pulse Oximetry Fraction of 80 Inspired Oxygen (FIO2) - Reevaluation(s) Reevaluation #1: 01/08/22 23:18 Note that the patient's blood pressure is 9457, heart rate of 66 was in the room. Pulse oximetry 93% on room air. Reevaluation #2: 01/09/22 00:57 Patient had a coughing bout where he started coughing up thick yellow sputum from his tracheostomy. He required manual suction with a Yankauer by me. We'll attach a humidified trach mask. Respiratory therapy notified. Reevaluation #3: 01/09/22 02:31 Medical record is reviewed Symptoms are improved here in the emergency department Patient is informed of results and questions answered Patient in no distress - Consultations Consultation #1: Case was discussed in detail with the hospitalist physician--Dr. Rosado from [facility]. Patient admitted to their service for syncope, cardiac monitoring, and cardiology consult. EKG Findings - EKG Comments: EKG Findings:: EKG done at 2225 review by the ED attending physician reveals sinus rhythm with nonspecific ST and T-wave abnormality. Patient does have T- wave flattening noted in V1, V2 as well as other precordial leads. Normal axis. CT interval prolonged at 208 ms. Other intervals are normal. Patient does have a history of atrial fibrillation but is not in A. fib at this time. Medical Decision Making - Medical Decision Making Patient's blood pressure noted to be running a bit on the soft side in the room. Patient does take metoprolol 75 mg twice a day. Given the fact the patient is not taking mouth food and is being fed through a feeding tube this pain need to be cut back. Patient will require observation for 2 syncopal episodes. Going to order a CT of the brain and cervical spine given the fact the patient is on anticoagulation therapy and he is 76 years old. However he denies hitting his head. Patient did have one reading with a systolic blood pressure less than 90. Troponin was negative. BNP was 414. Patient does have some nonspecific elevations of his hepatic enzymes with AST of 88 and ALP of 117. Undetermined significance. Sodium mildly low at 130. [place] syncope risk score 3 points reveals an 8.1 risk of a 30 day serious adverse event. Patient will be admitted to the hospital. Patient does not appear to be ill or toxic. Patient's symptomology likely more related to intake, new feeding tube, continue treatment with beta blockers patient restarted today. Does not appear to be consistent with sepsis. The case was discussed in detail with ED attending physician. Presentation, findings, treatment plan discussed in detail. Dirt Shoveler Dr. King - Lab Data Result diagrams: 01/08/22 22:33 01/08/22 22:33 Lab Results 01/08/22 01/08/22 01/08/22 Range/Units 22:33 22:33 22:33 WBC 11.5 H (3.8-10.6) k/uL RBC 3.68 L (4.30-5.90) m/uL Hgb 11.6 L (13.0-17.5) gm/dL Hct 32.4 L (39.0-53.0) % MCV 88.0 (80.0-100.0) fL MCH 31.5 (25.0-35.0) pg MCHC 35.8 (31.0-37.0) g/dL RDW 12.7 (11.5-15.5) % Plt Count 261 (150-450) k/uL MPV 7.8 Neutrophils % 86 % Lymphocytes % 4 % Monocytes % 7 % Eosinophils % 1 % Basophils % 0 % Neutrophils # 9.9 H (1.3-7.7) k/uL Lymphocytes # 0.5 L (1.0-4.8) k/uL Monocytes # 0.9 (0-1.0) k/uL Eosinophils # 0.1 (0-0.7) k/uL Basophils # 0.0 (0-0.2) k/uL PT 11.9 (9.0-12.0) sec INR 1.1 (<1.2) APTT 25.4 (22.0-30.0) sec Sodium 130 L (137-145) mmol/L Potassium 3.6 (3.5-5.1) mmol/L Chloride 95 L (98-107) mmol/L Carbon Dioxide 30 (22-30) mmol/L Anion Gap 5 mmol/L BUN 29 H (9-20) mg/dL Creatinine 0.90 (0.66-1.25) mg/dL Est GFR (CKD-EPI)AfAm >90 (>60 ml/min/1.73 sqM) Est GFR (CKD-EPI)NonAf 83 (>60 ml/min/1.73 sqM) Glucose 124 H (74-99) mg/dL POC Glucose (mg/dL) (70-110) mg/dL POC Glu Burglar Alarm Assembler ID Calcium 8.5 (8.4-10.2) mg/dL Magnesium 1.9 (1.6-2.3) mg/dL Total Bilirubin 0.7 (0.2-1.3) mg/dL AST 88 H (17-59) U/L ALT 117 H (4-49) U/L Alkaline Phosphatase 89 (38-126) U/L Troponin I (0.000-0.034) ng/mL NT-Pro-B Natriuret Pep pg/mL Total Protein 5.9 L (6.3-8.2) g/dL Albumin 3.4 L (3.5-5.0) g/dL 01/08/22 01/08/22 01/08/22 Range/Units 22:33 22:33 23:22 WBC (3.8-10.6) k/uL RBC (4.30-5.90) m/uL Hgb (13.0-17.5) gm/dL Hct (39.0-53.0) % MCV (80.0-100.0) fL MCH (25.0-35.0) pg MCHC (31.0-37.0) g/dL RDW (11.5-15.5) % Plt Count (150-450) k/uL MPV Neutrophils % % Lymphocytes % % Monocytes % % Eosinophils % % Basophils % % Neutrophils # (1.3-7.7) k/uL Lymphocytes # (1.0-4.8) k/uL Monocytes # (0-1.0) k/uL Eosinophils # (0-0.7) k/uL Basophils # (0-0.2) k/uL PT (9.0-12.0) sec INR (<1.2) APTT (22.0-30.0) sec Sodium (137-145) mmol/L Potassium (3.5-5.1) mmol/L Chloride (98-107) mmol/L Carbon Dioxide (22-30) mmol/L Anion Gap mmol/L BUN (9-20) mg/dL Creatinine (0.66-1.25) mg/dL Est GFR (CKD-EPI)AfAm (>60 ml/min/1.73 sqM) Est GFR (CKD-EPI)NonAf (>60 ml/min/1.73 sqM) Glucose (74-99) mg/dL POC Glucose (mg/dL) 143 H (70-110) mg/dL POC Glu Burglar Alarm Assembler ID Alyson Kee Calcium (8.4-10.2) mg/dL Magnesium (1.6-2.3) mg/dL Total Bilirubin (0.2-1.3) mg/dL AST (17-59) U/L ALT (4-49) U/L Alkaline Phosphatase (38-126) U/L Troponin I <0.012 (0.000-0.034) ng/mL NT-Pro-B Natriuret Pep 414 pg/mL Total Protein (6.3-8.2) g/dL Albumin (3.5-5.0) g/dL Disposition Clinical Impression: Syncope, Hypotension, Hyponatremia Disposition: ADMITTED IP TO THIS HOSP Condition: Fair Is patient prescribed a controlled substance at d/c from ED?: No Referrals: [facility],Clinic [Primary Care Provider] - 1-2 days Time of Disposition: 02:31 Decision to Admit Reason: Admit from EC Decision Time: 02:31
[2022-01-08 23:17] LABS: Basophils % (A) 0 %; Eosinophils # (A) 0.1 k/uL (0-0.7); Eosinophils % (A) 1 %; HCT 32.4 % (39.0-53.0); HGB 11.6 gm/dL (13.0-17.5); Lymphocytes # (A) 0.5 k/uL (1.0-4.8); Lymphocytes % (A) 4 %; MCH 31.5 pg (25.0-35.0); MCHC 35.8 g/dL (31.0-37.0); Mean Platelet Volume 7.8; Monocytes # (A) 0.9 k/uL (0-1.0); Monocytes % (A) 7 %; Neutrophils # (A) 9.9 k/uL (1.3-7.7); Neutrophils % (A) 86 %; Platelet Count 261 k/uL (150-450); RBC 3.68 m/uL (4.30-5.90); RDW 12.7 % (11.5-15.5); WBC 11.5 k/uL (3.8-10.6)
[2022-01-08 23:24] LABS: Glucose,Whole Blood 143 mg/dL (70-110)
[2022-01-08 23:32] LABS: ALT 117 U/L (4-49); AST 88 U/L (17-59); African American GFR (CKD) >90 (>60 ml/min/1.73 sqM); Albumin 3.4 g/dL (3.5-5.0); Alkaline Phosphatase 89 U/L (38-126); Anion Gap 5 mmol/L; Blood Urea Nitrogen 29 mg/dL (9-20); Calcium 8.5 mg/dL (8.4-10.2); Carbon Dioxide 30 mmol/L (22-30); Chloride 95 mmol/L (98-107); Glucose 124 mg/dL (74-99); Magnesium 1.9 mg/dL (1.6-2.3); Non-African American GFR(CKD) 83 (>60 ml/min/1.73 sqM); Potassium 3.6 mmol/L (3.5-5.1); Sodium 130 mmol/L (137-145); Total Bilirubin 0.7 mg/dL (0.2-1.3); Total Protein 5.9 g/dL (6.3-8.2)
--- NOTE | 2022-01-08 23:33 | XR ---
EXAMINATION TYPE: XR chest 1V portable DATE OF EXAM: 01/08/2022 COMPARISON: 02/16/2021 HISTORY: Syncope TECHNIQUE: Single view FINDINGS: Heart is normal. There is some coarse linear density in the medial right upper lobe extendi ng to the pulmonary hilum and also present on old exam. This appears not significantly different and consistent with scarring. There is no heart failure. No pleural effusion. There are chest leads. Bony thorax is intact. IMPRESSION: Right upper lobe scarring. Normal heart.
[2022-01-08 23:34] LABS: INR 1.1 (<1.2); Partial Thromboplastin Time 25.4 sec (22.0-30.0); Prothrombin Time 11.9 sec (9.0-12.0)
--- NOTE | 2022-01-09 01:57 | CT ---
EXAMINATION TYPE: CT brain shaka wo con DATE OF EXAM: 01/09/2022 COMPARISON: CT brain 12/30/2021 HISTORY: fall Pain CT DLP: 1330.7 mGycm Automated exposure control for dose reduction was used. Images of the brain and cervical spine obtained with no contrast. There is cerebral cortical atrophy. There is no mass effect or midline shift. No sign of intracranial hemorrhage. There is some hypodensity in the periventricular white matter. The calvarium is intact. The skull base is intact. There is normal aeration of the mastoid sinuses. Occipital bone is intact. The cervical vertebra have fairly normal alignment. There is degenerative disc space narrowing at C5- 6 and C6-7 with spurring of the endplates. The posterior elements are intact. Facet joints are intact . There is mild hypertrophic cervical facet arthropathy. IMPRESSION: Cerebral atrophy and chronic small vessel ischemia without change. No acute intracranial abnormality. Mild spondylotic changes in the lower cervical spine. No fracture.
[2022-01-09] MEDS ORDERED: NALOXONE 0.4 MG/ML 1 ML VIAL IV PRN (02:57)
[2022-01-09] MEDS ORDERED: ONDANSETRON 4 MG/2 ML VIAL IVP PRN (02:57)
[2022-01-09] MEDS: SODIUM CHLORIDE 0.9% 1,000 ML IV SCH ×2 (03:38→20:01)
--- NOTE | 2022-01-09 04:38 | P.HPIM ---
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 Of note, the patient was recently seen in the emergency room for an impacted food bolus, subsequently transferred to [facility] where the pa milton underwent PEG tube placement. The patient was discharged from the hospital yesterday and it was his first day at home with the PEG tube carlos aguillon. The patient does not recall the episodes but states that it may be due to a lack of proper airflow due to his trach collar. He reports feeling lightheaded and subsequently losing consciousness for up to a minute, witnessed by his visiting RN. The patient denied experiencing chest discomfort, palpitations, nausea, diaphoresis, or shortness of breath. Head and cervical spine CT in emergency was unremarkable with EKG showing sinus rhythm at 66 bpm with T-wave inversion in lead V1 and V2. The patient was hypertensive upon presentation to the emergency room if BP 94/57 with pulse 70 and SpO2 93% on room air. Laboratory evaluation was remarkable for leukocytosis of 11.5 with troponin less than 0.012 and proBNP 414. Review of systems: Pertinent positives and negatives as discussed in HPI, a complete review of systems was performed and all other systems are negative. Physical examination: General: non toxic, no distress, appears at stated age, normal weight Derm: no unusual rashes/lesions, warm Head: atraumatic, normocephalic, symmetric Eyes: EOMI, no lid lag, anicteric sclera, pupils equal round reactive to light ENT: Nose and ears atraumatic Neck: No cervical lymphadenopathy, trach collar in place with no obvious abnormalities noted, Mouth: no lip lesion, mucus membranes moist Cardiovascular: S1S2 reg, no murmur, positive dorsalis pedis pulse bilateral, no edema Lungs: CTA bilateral, no rhonchi, no rales, no accessory muscle use Abdominal: soft, nontender to palpation, no guarding, PEG tube in place Ext: muscle strength 5 out of 5 in all 4 extremities grossly, no gross muscle atrophy, no contractures, Neuro: CN II-XI grossly intact, no gross focal neuro deficits Psych: Alert, oriented, appropriate affect Assessment/plan Syncope, suspect secondary to dehydration -IV fluids -Check orthostatic -Fall precautions Chronic conditions: A. fib -Continue with home Eliquis DVT prophylaxis -Eliquis The patient is admitted with an anticipated greater than 2 midnight stay for evaluation of syncope CODE STATUS: Full Code Discussed with: Patient Anticipated discharge date: 2-[address]: Home Past Medical History Past Medical History: Atrial Fibrillation, Cancer, Eye Disorder, Hyperlipidemia, Hypertension, Prostate Disorder, Thyroid Disorder Additional Past Medical History / Comment(s): artificial voice box, throat ca, lung ca, hx of radiation, occasional SOB, cataract right eye History of Any Multi-Drug Resistant Organisms: None Reported Additional Past Surgical History / Comment(s): total laryngectomy, bx of lung nodule, left cataract Past Anesthesia/Blood Transfusion Reactions: No Reported Reaction Additional Past Anesthesia/Blood Transfusion Reaction / Comment(s): has had laryngectomy Past Psychological History: No Psychological Hx Reported Smoking Status: Former smoker Past Alcohol Use History: Daily Past Drug Use History: None Reported - Past Family History Mother Family Medical History: Cancer Additional Family Medical History / Comment(s): lung Medications and Allergies Home Medications Medication Instructions Recorded Confirmed Type Folic Acid 1 mg PO DAILY 02/03/16 02/16/21 History Simvastatin [Zocor] 20 mg PO HS 02/03/16 02/16/21 History Chlorhexidine Gluconate [Periogard] 15 ml PO HS 09/20/17 02/16/21 History Carboxymethylcellulose Sodium 1 drop BOTH EYES 5XD PRN 01/25/20 02/16/21 History [Refresh Tears] Apixaban [Eliquis] 5 mg PO BID #60 tab 01/26/20 02/16/21 Rx Levothyroxine Sodium [Synthroid] 88 mcg PO DAILY 02/16/21 02/16/21 History Terazosin HCl 10 mg PO DAILY 02/16/21 02/16/21 History Vitamin B Complex 1 cap PO DAILY 02/16/21 02/16/21 History Metoprolol Tartrate [Lopressor] 50 mg PO TID tab 02/17/21 Rx Allergies Allergy/AdvReac Type Severity Reaction Status Date / Time No Known Allergies Allergy Verified 01/08/22 22:12 Physical Exam Vitals: Vital Signs Temp Pulse Resp BP Pulse Ox FiO2 01/09/22 03:46 28 01/09/22 03:37 96.7 F L 01/09/22 02:54 97.6 F 01/09/22 02:21 73 19 97/57 01/09/22 01:15 80 01/09/22 01:06 84 22 104/64 93 L 01/08/22 23:24 62 15 84/53 92 L 01/08/22 22:06 97.5 F L 70 18 94/57 93 L Intake and Output 01/08/22 01/08/22 01/09/22 14:59 22:59 06:59 Other: Weight 64.864 kg Results CBC & Chem 7: 01/08/22 22:33 01/08/22 22:33 Labs: Abnormal Lab Results - Last 24 Hours (Table) 01/08/22 01/08/22 01/08/22 Range/Units 22:33 22:33 23:22 WBC 11.5 H (3.8-10.6) k/uL RBC 3.68 L (4.30-5.90) m/uL Hgb 11.6 L (13.0-17.5) gm/dL Hct 32.4 L (39.0-53.0) % Neutrophils # 9.9 H (1.3-7.7) k/uL Lymphocytes # 0.5 L (1.0-4.8) k/uL Sodium 130 L (137-145) mmol/L Chloride 95 L (98-107) mmol/L BUN 29 H (9-20) mg/dL Glucose 124 H (74-99) mg/dL POC Glucose (mg/dL) 143 H (70-110) mg/dL AST 88 H (17-59) U/L ALT 117 H (4-49) U/L Total Protein 5.9 L (6.3-8.2) g/dL Albumin 3.4 L (3.5-5.0) g/dL
[2022-01-09] MEDS ORDERED: PANTOPRAZOLE 40 MG/10 ML VIAL IV SCH (09:00)
[2022-01-09] MEDS ORDERED: APIXABAN 5 MG TAB PO SCH (09:00)
--- NOTE | 2022-01-09 12:19 | CONS ---
CONSULTATION CHIEF COMPLAINT: Syncope. 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 The patient has had quite a bit of accumulation of secretions and he aspirates it himself. His syncope could be vasovagal in origin. The patient had a similar episode of syncope in January 2021 and workup following that was benign and unremarkable. At the time of my evaluation, patient appears comfortable at rest and is free of symptoms. Rhythm strips show that he is in sinus rhythm. EKG shows sinus rhythm with nonspecific ST-T wave changes. He had 1 set of troponin that is negative, BNP is normal, hemoglobin is 11.6, potassium is 3.6, and creatinine is 0.9. Syncope could be vasovagal in origin. I am going to watch the patient on telemetry, obtain a 2D echo, obtain another set of troponin. If this initial workup is negative, he can be discharged home and outpatient followup arranged through my office. PAST MEDICAL HISTORY: Significant for paroxysmal atrial fibrillation, hypertension, dyslipidemia. MEDICATIONS AT HOME: 1. Zocor 20 mg daily. 2. Lopressor 50 t.i.d. 3. Synthroid. 4. Folic acid. 5. Eliquis. 6. Terazosin. ALLERGIES: There are no known drug allergies. FAMILY HISTORY: Negative for premature coronary artery disease. SOCIAL HISTORY: Negative for current smoking, EtOH abuse, or drug abuse. REVIEW OF SYSTEMS: HEENT: Significant for tracheostomy. CARDIAC: As described above. RESPIRATORY: Negative. GI: Negative. GENITOURINARY: Negative. ALLERGY/IMMUNOLOGY: Negative. SKIN: Negative. MUSCULOSKELETAL: Significant for arthritis. PSYCHOSOCIAL: Negative. DERM: Negative. CONSTITUTIONAL: Negative. ONCOLOGICAL negative. CORN SHELLER: Negative. Rest of the system review is not relevant. PHYSICAL EXAMINATION: GENERAL: Comfortable at rest. VITAL SIGNS: Heart rate is 80 beats per minute, blood pressure 123/72, respiratory rate is 18. NECK: There is no jugular venous distention. Carotid upstroke is normal. There is no bruit. CHEST: Exam reveals bilateral rhonchi. HEART: Exam reveals first and second heart sounds. No gallop, no murmur. ABDOMEN: Soft. EXTREMITIES: Did not reveal any edema. Peripheral pulses are felt. LABORATORIES: As described above. ASSESSMENT: 1. Syncope, rule out cardiac causes. 2. Paroxysmal atrial fibrillation. 3. Carcinoma larynx, status post tracheostomy. PLAN: The patient's syncope could be vasovagal or could be due to hypotension. I am going to decrease the dose of metoprolol at this time and obtain a 2D echo, obtain a troponin, and watch him on telemetry. MMODL / IJN: [id number] /
[2022-01-09 12:31] VITALS: BMI 23.1
--- NOTE | 2022-01-09 14:03 | CA ---
Transthoracic Echo Report Name: Werner Dawkins Age: 76 Gender: M : 1945 Exam Date: 01/09/2022 10:56 Exam Location: [facility] Ht (in): 66 Wt (lb): 143 Ordering Physician: Shiva Lr MD ([id number]) Attending/Referring Phys: Adeline MONIQUE Patient Liaison Sonya Mendoza RDCS Procedure CPT: Indications: Dr. rL Cardiac Hx: Technical Quality: Fair Contrast 1: Total Dose (mL): Contrast 2: Total Dose (mL): MEASUREMENTS (Male / Female) Normal Values 2D ECHO LV Diastolic Diameter PLAX 3.9 cm 4.2 - 5.9 / 3.9 - 5.3 cm LV Systolic Diameter PLAX 2.3 cm IVS Diastolic Thickness 1.3 cm 0.6 - 1.0 / 0.6 - 0.9 cm LVPW Diastolic Thickness 1.3 cm 0.6 - 1.0 / 0.6 - 0.9 cm LV Relative Wall Thickness 0.7 LA Volume 22.9 cm??? 18 - 58 / 22 - 52 cm??? M-MODE Aortic Root Diameter MM 3.4 cm LA Systolic Diameter MM 3.0 cm LA Ao Ratio MM 0.9 AV Cusp Separation MM 2.0 cm DOPPLER AV Peak Velocity 135.3 cm/s AV Peak Gradient 7.3 mmHg AV Mean Velocity 94.5 cm/s AV Mean Gradient 3.9 mmHg AV Velocity Time Integral 23.1 cm LVOT Peak Velocity 116.6 cm/s LVOT Peak Gradient 5.4 mmHg MV Area PHT 3.6 cm??? Mitral E Point Velocity 93.8 cm/s Mitral A Point Velocity 82.3 cm/s Mitral E to A Ratio 1.1 MV Deceleration Time 209.3 ms MV E' Velocity 8.5 cm/s Mitral E to MV E' Ratio 11.1 FINDINGS Left Ventricle Mildly increased left ventricular wall thickness. Normal left ventricular systolic function with no obvious regional wall motion abnormalities. Left ventricular ejection fraction is estimated at 55-60 %. Right Ventricle Right ventricle not well visualized. Right ventricular systolic pressure within normal limits. Right Atrium Right atrium not well visualized. Left Atrium Normal left atrial size. Mitral Valve Structurally normal mitral valve. Mitral valve thickened. Mild mitral annular calcification. Trace mitral regurgitation. Aortic Valve Aortic valve not well visualized. No aortic valve stenosis or regurgitation. Tricuspid Valve Mild tricuspid regurgitation. Pulmonic Valve Pulmonic valve not well visualized. Pericardium No pericardial effusion. Aorta Normal size aortic root and proximal ascending aorta. CONCLUSIONS Normal LV function Previewed by: Dr. Shiva Lr MD (Electronically Signed) Final Date: 09 January 2022 14:02
[2022-01-09 16:23] LABS: Glucose,Whole Blood 113 mg/dL (70-110)
[2022-01-09] MEDS ORDERED: SODIUM CHLORIDE 0.65% NASAL SPRAY 44 ML BTL NASAL PRN (16:40)
[2022-01-09] MEDS: METOPROLOL TARTRATE 25 MG TAB PEG/G-TUBE SCH (20:02)
[2022-01-09] MEDS: APIXABAN 5 MG TAB PEG/G-TUBE SCH (20:02)
[2022-01-09] MEDS: PANTOPRAZOLE SODIUM 40 MG GRANULE PKT PEG/G-TUBE SCH (20:02)
[2022-01-09] MEDS ORDERED: ATORVASTATIN 10 MG TAB PEG/G-TUBE SCH (21:00)
[2022-01-09] MEDS ORDERED: METOPROLOL TARTRATE 25 MG TAB PO SCH (21:00)
[2022-01-09] MEDS ORDERED: METOPROLOL TARTRATE 75 MG PEG/G-TUBE SCH (21:00)
[2022-01-10] MEDS: SODIUM CHLORIDE 0.9% 1,000 ML IV SCH (05:55)
[2022-01-10] MEDS ORDERED: LEVOTHYROXINE 88 MCG TAB PEG/G-TUBE SCH (06:30)
[2022-01-10] MEDS: PANTOPRAZOLE SODIUM 40 MG GRANULE PKT PEG/G-TUBE SCH (08:21)
[2022-01-10] MEDS: METOPROLOL TARTRATE 25 MG TAB PEG/G-TUBE SCH (08:21)
[2022-01-10] MEDS: APIXABAN 5 MG TAB PEG/G-TUBE SCH (08:21)
[2022-01-10 08:32] VITALS: RESP 18; TEMP 98.6
[2022-01-10] MEDS ORDERED: polyethylene glycoL 3350 17 GM POWD.PACK PEG/G-TUBE SCH (09:00)
[2022-01-10] MEDS ORDERED: MINERAL OIL PEG/G-TUBE SCH (09:00)
[2022-01-10] MEDS ORDERED: FOLIC ACID 1 MG TAB PEG/G-TUBE SCH (09:00)
[2022-01-10 12:13] LABS: Basophils % (A) 0 %; Eosinophils # (A) 0.2 k/uL (0-0.7); Eosinophils % (A) 1 %; HCT 32.5 % (39.0-53.0); HGB 11.3 gm/dL (13.0-17.5); Lymphocytes # (A) 0.7 k/uL (1.0-4.8); Lymphocytes % (A) 4 %; MCH 31.6 pg (25.0-35.0); MCHC 34.6 g/dL (31.0-37.0); MCV 91.1 fL (80.0-100.0); Mean Platelet Volume 7.5; Monocytes # (A) 0.5 k/uL (0-1.0); Monocytes % (A) 3 %; Neutrophils # (A) 15.4 k/uL (1.3-7.7); Neutrophils % (A) 91 %; Platelet Count 279 k/uL (150-450); RBC 3.57 m/uL (4.30-5.90); RDW 12.8 % (11.5-15.5)
--- NOTE | 2022-01-10 12:36 | P.PN ---
Subjective Progress Note Date: 01/10/22 Patient is seen today resting comfortably in bed in no signs of acute distress he denies any further episodes of syncope. troponin was negative his BNP was 414. He remains in sinus rhythm on the monitor. He underwent a 2-D echocardiogram which showed a normal LV function with ejection fraction of 55-60% patient's. Syncope is believed to be caused by vasovagal response due to suctioning his trach Objective - Vital Signs Vital signs: Vital Signs Temp 98.6 F 01/10/22 08:00 Pulse 91 01/10/22 08:00 Resp 18 01/10/22 08:00 BP 108/61 01/10/22 08:00 Pulse Ox 91 L 01/10/22 08:00 FiO2 28 01/10/22 12:09 Intake & Output 01/09/22 01/10/22 01/10/22 18:59 06:59 18:59 Output Total 200 400 Balance -200 -400 Weight 64.864 kg Output: Urine 200 400 Other: # Bowel Movements 1 - Exam PHYSICAL EXAM: VITAL SIGNS: Reviewed. GENERAL: Well-developed in no acute distress. HEENT: Head is normocephalic. Pupils are equal, round. Sclerae anicteric. Mucous membranes of the mouth are moist. NECK: Supple. No JVD or thyromegaly RESPIRATORY: Respirations even and unlabored. Lungs diminished with rhonchi to auscultation bilaterally. Tracheostomy CARDIO: Regular rate and rhythm. S1 and S2 heard. No murmur or gallops. EXTREMITIES: Normal range of motion. No clubbing or cyanosis. Peripheral pulses intact. Negative for bilateral lower extremity edema NEURO: Orientated to person, time, mood is appropriate - Labs CBC & Chem 7: 01/10/22 11:59 01/08/22 22:33 Labs: Abnormal Lab Results - Last 24 Hours (Table) 01/09/22 01/10/22 Range/Units 16:22 11:59 WBC 17.0 H (3.8-10.6) k/uL RBC 3.57 L (4.30-5.90) m/uL Hgb 11.3 L (13.0-17.5) gm/dL Hct 32.5 L (39.0-53.0) % Neutrophils # 15.4 H (1.3-7.7) k/uL Lymphocytes # 0.7 L (1.0-4.8) k/uL POC Glucose (mg/dL) 113 H (70-110) mg/dL Assessment and Plan Assessment: Syncope, secondary to vasovagal response Proximal atrial fibrillation Carcinoma larynx, status post tracheostomy Plan: Echocardiogram obtained and reviewed. Continue with current cardiac medications Continue with telemetry monitoring Further recommendations based on clinical course The above impression and plan of care have been discussed and directed by the signing physician. Celeste Almendarez, nurse practitioner, acting as scribe for signing physician.
[2022-01-10 12:51] VITALS: BP 136/65; PULSE 86
[2022-01-10 12:53] LABS: ALT 86 U/L (4-49); AST 77 U/L (17-59); African American GFR (CKD) >90 (>60 ml/min/1.73 sqM); Albumin 3.1 g/dL (3.5-5.0); Alkaline Phosphatase 92 U/L (38-126); Anion Gap 5 mmol/L; Blood Urea Nitrogen 23 mg/dL (9-20); Calcium 7.9 mg/dL (8.4-10.2); Carbon Dioxide 26 mmol/L (22-30); Chloride 101 mmol/L (98-107); Glucose 99 mg/dL (74-99); Magnesium 1.9 mg/dL (1.6-2.3); Non-African American GFR(CKD) >90 (>60 ml/min/1.73 sqM); Phosphorus 2.4 mg/dL (2.5-4.5); Sodium 132 mmol/L (137-145); Total Bilirubin 1.1 mg/dL (0.2-1.3); Total Protein 5.7 g/dL (6.3-8.2)
--- NOTE | 2022-01-10 13:04 | P.DS ---
Providers Date of admission: 01/09/22 04:28 Expected date of discharge: 01/10/22 Attending physician: Celio Rosado MD Consults: 01/09/22 02:57 Consult Physician Urgent Consulting Provider: Amadeo Obrien Consult Reason/Comments: Syncope Do you want consulting provider notified?: Yes, Notify in am Primary care physician: [facility] Course: Syncope, suspect secondary to dehydration Permanent A. fib The patient is a 76-year-old male with an extensive PMH including long-standing history of lung and throat cancer status post total laryngectomy and artificial was box placement, A. fib, who presented to the emergency room for syncopal episodes. In the ER, patient was afebrile, The patient was hypotensive upon presentation to the emergency room if BP 94/57 with pulse 70 and SpO2 93% on room air.. Head and cervical spine CT in emergency was unremarkable with EKG showing sinus rhythm at 66 bpm with T-wave inversion in lead V1 and V2. Laboratory evaluation was remarkable for leukocytosis of 11.5 with troponin less than 0.012 and proBNP 414. Patient was treated with IVF and cardiology consulted. They recommended decreasing metoprolol from 75mg BID to 25mg BID. Patient felt much better by following day and was discharged home with PCP and cardiology follow up. Gen: awake, alert HEENT: normocephalic, atraumatic, good hearing acuity, moist mucous membranes, tracheostomy Resp: good air exchange, breathing comfortably with no accessory muscle use CVS: good distal perfusion x 4, GI: soft, NTTP, ND, PEG tube : no SPT, no CVAT, langston catheter not present MSK: no pitting edema, no clubbing Neuro: non-focal, moving all extremities Psych: cooperative, euthymic mood Patient Condition at Discharge: Good Plan - Discharge Summary New Discharge Prescriptions: New Metoprolol Tartrate [Lopressor] 25 mg PEG/G-TUBE BID #60 tab Continue Simvastatin [Zocor] 20 mg PEG/G-TUBE HS Folic Acid 1 mg PEG/G-TUBE DAILY Chlorhexidine Gluconate [Periogard] 15 ml PO BID Sodium Chloride 0.65% Nasal [Deep Sea (Saline)] 2 spr NASAL TID PRN PRN Reason: Dry Nasal Passages Protonix 40mg/20ml Oral Suspension 40 mg PEG/G-TUBE BID Apixaban [Eliquis] 5 mg PEG/G-TUBE BID polyethylene glycoL 3350 [Miralax] 17 gm PEG/G-TUBE DAILY Mineral Oil Oral Liquid 30 ml PEG/G-TUBE DAILY Levothyroxine Sodium [Synthroid] 88 mcg PEG/G-TUBE DAILY Bacitracin Zinc Oint 1 applic TOPICAL BID Discontinued Metoprolol Tartrate [Lopressor] 75 mg PEG/G-TUBE BID Discharge Medication List Folic Acid 1 mg PEG/G-TUBE DAILY 02/03/16 [History] Simvastatin [Zocor] 20 mg PEG/G-TUBE HS 02/03/16 [History] Chlorhexidine Gluconate [Periogard] 15 ml PO BID 09/20/17 [History] Levothyroxine Sodium [Synthroid] 88 mcg PEG/G-TUBE DAILY 02/16/21 [History] Apixaban [Eliquis] 5 mg PEG/G-TUBE BID 01/09/22 [History] Bacitracin Zinc Oint 1 applic TOPICAL BID 01/09/22 [History] Mineral Oil Oral Liquid 30 ml PEG/G-TUBE DAILY 01/09/22 [History] Protonix 40mg/20ml Oral Suspension 40 mg PEG/G-TUBE BID 01/09/22 [History] Sodium Chloride 0.65% Nasal [Deep Sea (Saline)] 2 spr NASAL TID PRN 01/09/22 [History] polyethylene glycoL 3350 [Miralax] 17 gm PEG/G-TUBE DAILY 01/09/22 [History] Metoprolol Tartrate [Lopressor] 25 mg PEG/G-TUBE BID #60 tab 01/10/22 [Rx] Follow up Appointment(s)/Referral(s): [facility] [Primary Care Provider] - 1-2 days
== END 2022-01-10 17:12 | disposition home or self-care (01) | DRG 312 ==
LOC: EC 21:59 → 3SCARD 01-09 04:28
PROVIDERS: ADMIT Internal Medicine; ATTEND Internal Medicine
DX: R55 Syncope and collapse (principal); E87.1 Hypo-osmolality and hyponatremia; I48.21 Permanent atrial fibrillation; I10 Essential (primary) hypertension; D72.829 Elevated white blood cell count, unspecified; E03.9 Hypothyroidism, unspecified; R09.02 Hypoxemia; E78.5 Hyperlipidemia, unspecified; I08.1 Rheumatic disorders of both mitral and tricuspid valves; E86.0 Dehydration; Z93.1 Gastrostomy status; Z79.01 Long term (current) use of anticoagulants; Z79.890 Hormone replacement therapy; Z79.899 Other long term (current) drug therapy; Z85.118 Personal history of other malignant neoplasm of bronchus and lung; Z85.819 Personal history of malignant neoplasm of unspecified site of lip, oral cavity, and pharynx; Z87.891 Personal history of nicotine dependence; Z92.3 Personal history of irradiation; Z98.41 Cataract extraction status, right eye
CPT/HCPCS: 36415; 70450; 71045; 72125; 80053; 83735; 83880; 84100; 84484; 85025; 85610; 85730; 93005; 93306; 96361; 96374; 99285

== ENCOUNTER → 2022-01-25 | Outpatient (CLI) | payer OTHER ==
[2022-01-25 11:47] LABS: African American GFR (CKD) >90 (>60 ml/min/1.73 sqM); Blood Urea Nitrogen 15 mg/dL (9-20); Non-African American GFR(CKD) >90 (>60 ml/min/1.73 sqM)
--- NOTE | 2022-01-25 13:34 | CT ---
EXAMINATION TYPE: CT chest w con CT DLP: 399 mGycm, Automated exposure control for dose reduction was used. DATE OF EXAM: 01/25/2022 12:17 PM COMPARISON: 09/14/2021 CLINICAL INDICATION:Male, 76 years old with history of C34.11 Lung ca; , f/u lung ca TECHNIQUE: Multiple axial images were obtained through the chest. Sagittal and coronal reformats were created for review. Contrast used:70cc mL of Isovue 300 with IV Contrast Oral contrast used: none. FINDINGS: LUNGS/ PLEURA: Overall the morphology of the right lung demonstrates similar posttreatment changes wi thout convincing evidence for recurrence. Medial right upper lobe nodular opacity near the pleura parminder suring up to 15 mm could be minimally larger compared to 09/14/2021 and is larger from 08/19/2020 where it measured up to 9 mm and not visualized definitively on 08/23/2019. Bibasilar streaky opacities are present. AIRWAY: A few opacified large airways in the left lower lobe with secretions within the trachea. HEART: Size within normal limits. Coronary artery atherosclerosis. MEDIASTINUM: No gross evidence of adenopathy. VASCULATURE: No aortic aneurysm. Atherosclerosis of the arterial vasculature MUSCULOSKELETAL: No acute osseous abnormalities, multilevel disc degeneration changes throughout the spine. SOFT TISSUES/LYMPH NODES: Unremarkable. LOWER NECK: No significant findings. UPPER ABDOMEN: Scattered hepatic cysts are present. PEG tube in appropriate position. Small hiatal he rnia. IMPRESSION: 1. Right lung posttreatment changes within the area in the medial aspect of the right upper lobe minor t is slowly increasing in size over time. This is not clearly seen on 08/23/2019 and is larger than 07/23. Consider nuclear medicine PET/CT for evaluation. 2. New bibasilar airspace opacities concerning for infectious/inflammatory process correlate for asp iration, left greater than right. 3. Severe coronary artery atherosclerosis. 4. PEG tube in appropriate position. 5. Small hiatal hernia.
== END | disposition home or self-care (01) ==
LOC: RADCTMAIN 10:57
PROVIDERS: ATTEND Radiology Radiation Oncology
DX: C34.11 Malignant neoplasm of upper lobe, right bronchus or lung (principal); I25.10 Atherosclerotic heart disease of native coronary artery without angina pectoris; K44.9 Diaphragmatic hernia without obstruction or gangrene; R91.8 Other nonspecific abnormal finding of lung field; Z93.1 Gastrostomy status; Z85.21 Personal history of malignant neoplasm of larynx; Z92.3 Personal history of irradiation
CPT/HCPCS: 82565; 84520; 71260; 36415; Q9967

== ENCOUNTER 2023-02-17 11:50 | Emergency (ER) | payer OTHER ==
[2023-02-17 13:27] VITALS: TEMP 97.9
--- NOTE | 2023-02-17 14:50 | ED ---
General Adult HPI - General Source: patient Mode of arrival: ambulatory Limitations: no limitations <Juan Oakes - Last Filed: 02/17/23 14:51> <Tracey Spencer - Last Filed: 02/17/23 22:09> - General Source: patient, RN notes reviewed <Kelli Erickson - Last Filed: 02/18/23 00:33> - General Chief complaint: Recheck/Abnormal Lab/Rx Stated complaint: feeding tube leaking Time Seen by Provider: 02/17/23 14:49 - History of Present Illness Initial comments: 77-year-old male with a PEG tube presenting to the ED with a chief complaint of PEG tube problem. Patient states for the past week, his PEG tube has been leaking. States he has still been able to use it. Due to this[facility] to present to [facility] ED for further evaluation. (Juan Oakes) Patient is a 77-year-old male presented ER with chief complaint of PEG tube issue. Patient reports that he had this placed a year ago from a general surgeon in [place]. Patient states about a week or 2 ago she started noting a blister in the tubing. He states it is now punctured and is leaking. He placed a piece of tape over the area to feed himself. Patient reports that he called [facility] who instructed him to come to the ER today for evaluation. Patient reports that the PEG tube is working and flowing. Patient states he is unable to travel to [place] due to not having a ride. Patient would like to transfer his care to the [place] area. Patient denies any fevers, chills, night sweats, chest pain, shortness of breath, or any other complaints. (Kelli Erickson) - Related Data Home Medications Medication Instructions Recorded Confirmed Folic Acid 1 mg PEG/G-TUBE DAILY 02/03/16 10/15/22 Simvastatin [Zocor] 20 mg PEG/G-TUBE HS 02/03/16 10/15/22 Levothyroxine Sodium [Synthroid] 88 mcg PEG/G-TUBE DAILY 02/16/21 10/15/22 Apixaban [Eliquis] 5 mg PEG/G-TUBE BID 01/09/22 10/15/22 Bacitracin Zinc Oint 1 applic TOPICAL BID 01/09/22 10/15/22 Mineral Oil Oral Liquid 30 ml PEG/G-TUBE DAILY 01/09/22 10/15/22 Protonix 40mg/20ml Oral Suspension 40 mg PEG/G-TUBE BID 01/09/22 10/15/22 Sodium Chloride 0.65% Nasal [Deep 2 spr NASAL TID PRN 01/09/22 10/15/22 Sea (Saline)] polyethylene glycoL 3350 [Miralax] 17 gm PEG/G-TUBE DAILY 01/09/22 10/15/22 Previous Rx's Medication Instructions Recorded Metoprolol Tartrate [Lopressor] 25 mg PEG/G-TUBE BID #60 tab 01/10/22 Allergies Allergy/AdvReac Type Severity Reaction Status Date / Time No Known Allergies Allergy Verified 02/17/23 13:28 Review of Systems ROS Other: All systems not noted in ROS Statement are negative. <Juan Oakes - Last Filed: 02/17/23 14:51> ROS Other: All systems not noted in ROS Statement are negative. <Tracey Spencer - Last Filed: 02/17/23 22:09> ROS Other: All systems not noted in ROS Statement are negative. <Kelli Erickson - Last Filed: 02/18/23 00:33> ROS Statement: Those systems with pertinent positive or pertinent negative responses have been documented in the HPI. Past Medical History Past Medical History: Atrial Fibrillation, Cancer, Eye Disorder, Hyperlipidemia, Hypertension, Prostate Disorder, Thyroid Disorder Additional Past Medical History / Comment(s): artificial voice box, throat ca, lung ca, hx of radiation, occasional SOB, cataract both eyes History of Any Multi-Drug Resistant Organisms: None Reported Additional Past Surgical History / Comment(s): total laryngectomy, bx of lung nodule, BL cataract, PEG tube placement last week at [facility] because food got stuck in his throat pt had EGD done told him he had a blockage in his throat and he needed a PEG Pt has a protatic tube in his trachy prior. peg placed 2022. colonoscopy,egd Past Anesthesia/Blood Transfusion Reactions: No Reported Reaction Additional Past Anesthesia/Blood Transfusion Reaction / Comment(s): has had laryngectomy Past Psychological History: No Psychological Hx Reported Smoking Status: Former smoker - Past Family History Mother Family Medical History: Cancer Additional Family Medical History / Comment(s): lung <Juan Oakes - Last Filed: 02/17/23 14:51> General Exam Limitations: no limitations <Juan Oakes - Last Filed: 02/17/23 14:51> General appearance: alert, in no apparent distress Head exam: Present: atraumatic, normocephalic, normal inspection Neck exam: Present: normal inspection. Absent: tenderness, meningismus, lymphadenopathy Respiratory exam: Present: normal lung sounds bilaterally. Absent: respiratory distress, wheezes, rales, rhonchi, stridor Cardiovascular Exam: Present: regular rate, normal rhythm, normal heart sounds. Absent: systolic murmur, diastolic murmur, rubs, gallop, clicks GI/Abdominal exam: Present: soft, normal bowel sounds, other (PEG tube in place no signs of infection surrounding stoma. PEG tube is working and flowing. ). Absent: distended, tenderness, guarding, rebound, rigid Neurological exam: Present: alert, oriented X3, CN II-XII intact Psychiatric exam: Present: normal affect, normal mood Skin exam: Present: warm, dry, intact, normal color. Absent: rash <Kelli Erickson - Last Filed: 02/18/23 00:33> - General Exam Comments Initial Comments: Physical Exam Vital signs reviewed General: Well-appearing, nontoxic, no acute distress. Head: Normocephalic, atraumatic Eyes: PERRLA, EOMI ENT: Airway patent Chest: Nonlabored breathing Skin: No visual rash, normal skin tone Neuro: Alert and oriented 3 Musculoskeletal: No gross abnormalities (Juan Oakes) Course Vital Signs 02/17/23 02/17/23 13:23 20:35 Temperature 97.9 F Pulse Rate 71 83 Respiratory 20 18 Rate Blood Pressure 178/71 196/80 O2 Sat by Pulse 94 L 97 Oximetry Procedures <Kelli Erickson - Last Filed: 02/18/23 00:33> - Procedures Initial comment: PEG tube replaced (Kelli Erickson) Medical Decision Making <Juan Oakes - Last Filed: 02/17/23 14:51> - Radiology Data Radiology results: report reviewed, image reviewed <Kelli Erickson - Last Filed: 02/18/23 00:33> - Medical Decision Making Quicknote portion performed. Signed Juan Oakes PA-C (Juan Oakes) Was pt. sent in by a medical professional or institution (AMAYA Huddleston, BILLET CHECKER, urgent care, hospital, or usp...) When possible be specific @ -No Did you speak to anyone other than the patient for history (EMS, parent, family, police, friend...)? What history was obtained from this source @ -No Did you review nursing and triage notes (agree or disagree)? Why? @ -I reviewed and agree with nursing and triage notes Were old charts reviewed (outside hosp., previous admission, EMS record, old EKG, old radiological studies, urgent care reports/EKG's, usp records)? Report findings @ -No old charts were reviewed Differential Diagnosis (chest pain, altered mental status, abdominal pain women, abdominal pain men, vaginal bleeding, weakness, fever, dyspnea, syncope, headache, dizziness, GI bleed, back pain, seizure, CVA, palpatations, mental health, musculoskeletal)? @ -Differential Abdominal Pain Men: Appendicitis, cholecystitis, diverticulosis, ischemic bowel, pancreatitis, hepatitis, UTI, gastroenteritis, AAA, incarcerated hernia, bowel obstruction, constipation, inflammatory bowel, hepatitis, peptic ulcer disease, splenic infarction, perforated viscus, testicular torsion, this is not meant to be an all-inclusive list EKG interpreted by me (3pts min.). @ -None X-rays interpreted by me (1pt min.). @ -Postprocedural KUB shows proper placement of PEG tube; dye in stomach CT interpreted by me (1pt min.). @ -None done U/S interpreted by me (1pt. min.). @ -None done What testing was considered but not performed or refused? (CT, X-rays, U/S, labs)? Why? @ -None What meds were considered but not given or refused? Why? @ -None Did you discuss the management of the patient with other professionals (professionals i.e. AMAYA Huddleston, BILLET CHECKER, lab, RT, psych nurse, social media editor, collections professional, teacher, title officer, caser shoe parts)? Give summary @ -No Was smoking cessation discussed for >3mins.? @ -No Was critical care preformed (if so, how long)? @ -No Were there social determinants of health that impacted care today? How? (Homelessness, low income, unemployed, alcoholism, drug addiction, transportation, low edu. Level, literacy, decrease access to med. care, halfway, rehab)? @ -No Was there de-escalation of care discussed even if they declined (Discuss DNR or withdrawal of care, Hospice)? DNR status @ -No What co-morbidities impacted this encounter? (DM, HTN, Smoking, COPD, CAD, Cancer, CVA, ARF, Chemo, Hep., AIDS, mental health diagnosis, sleep apnea, morbid obesity)? @ -None Was patient admitted / discharged? Hospital course, mention meds given and route, prescriptions, significant lab abnormalities, going to OR and other pertinent info. @ -Discharge. Patient is a 77-year-old male presented ER with chief complaint of PEG tube function. Upon examination, patient's vital signs are stable. Physical exam was significant for no signs of infection around stoma. PEG tube was flowing. He had tape wrapped around perforation in tubing. PEG tube was replaced using 22 tubing. Patient tolerated procedure well no complications. Postprocedural KUB shows proper placement and dye in stomach. Patient will be discharged in stable condition with follow-up to PCP. General surgery referral was given to patient. Return parameters were discussed. Patient expressed understanding and agreement with care plan. Undiagnosed new problem with uncertain prognosis? @ -No Drug Therapy requiring intensive monitoring for toxicity (Heparin, Nitro, Insulin, Cardizem)? @ -No Were any procedures done? @ -No Diagnosis/symptom? @ -PEG tube malfunction Acute, or Chronic, or Acute on Chronic? @ -Acute Uncomplicated (without systemic symptoms) or Complicated (systemic symptoms)? @ -Uncomplicated Side effects of treatment? @ -No Exacerbation, Progression, or Severe Exacerbation? @ -No Poses a threat to life or bodily function? How? (Chest pain, [place], [place], pneumonia, PE, COPD, DKA, ARF, appy, cholecystitis, CVA, Diverticulitis, Homicidal, Suicidal, threat to staff... and all critical care pts) @ -No (Kelli Erickson) Disposition <Juan Oakes - Last Filed: 02/17/23 14:51> Is patient prescribed a controlled substance at d/c from ED?: No <Tracey Spencer - Last Filed: 02/17/23 22:09> Is patient prescribed a controlled substance at d/c from ED?: No Time of Disposition: 22:12 <Kelli Erickson - Last Filed: 02/18/23 00:33> Clinical Impression: PEG tube malfunction Disposition: HOME SELF-CARE Condition: Stable Instructions (If sedation given, give patient instructions): How to Use and Care for Your PEG Tube (ED), PEG Tube Insertion (DC) Additional Instructions: PEG tube is safe to use Referrals: [facility],Clinic [Primary Care Provider] - 1-2 days Kenny Miller MD [Medical Doctor] - 1-2 days
[2023-02-17 21:00] VITALS: BP 196/80; PULSE 83; RESP 18
--- NOTE | 2023-02-17 22:38 | XR ---
EXAM: XR Abdomen, 1 View CLINICAL HISTORY: ITS.REASON XR Reason: PEG TECHNIQUE: Frontal supine view of the abdomen/pelvis. Oral contrast was administered. COMPARISON: No relevant prior studies available. FINDINGS/IMPRESSION: 1. Percutaneous gastrostomy tube in place. Administered oral contrast fills the gastric lumen, duodenum, and proximal jejunum, indicating appropriate placement. 2. Nonobstructive bowel gas pattern.
== END 2023-02-17 22:15 | disposition home or self-care (01) ==
LOC: EC 11:50
DX: K94.23 Gastrostomy malfunction (principal); E78.5 Hyperlipidemia, unspecified; I10 Essential (primary) hypertension; I48.91 Unspecified atrial fibrillation; E07.9 Disorder of thyroid, unspecified; Z87.891 Personal history of nicotine dependence; Z79.890 Hormone replacement therapy
CPT/HCPCS: 43762; 99283; 74018; Q9967

== ENCOUNTER 2023-04-05 19:05 | Inpatient (IN) | payer OTHER ==
[2023-04-05] MEDS: IPRATROPIUM-ALBUTEROL 3 ML NEB INHALATION STA (19:23)
[2023-04-05 19:51] LABS: ALT 33 U/L (4-49); AST 41 U/L (17-59); African American GFR (CKD) >90 (>60 ml/min/1.73 sqM); Albumin 3.8 g/dL (3.5-5.0); Alkaline Phosphatase 96 U/L (38-126); Anion Gap 8 mmol/L; Blood Urea Nitrogen 23 mg/dL (9-20); Calcium 8.2 mg/dL (8.4-10.2); Carbon Dioxide 24 mmol/L (22-30); Chloride 97 mmol/L (98-107); Glucose 184 mg/dL (74-99); Magnesium 1.7 mg/dL (1.6-2.3); Non-African American GFR(CKD) >90 (>60 ml/min/1.73 sqM); Potassium 3.8 mmol/L (3.5-5.1); Sodium 129 mmol/L (137-145); Total Protein 6.6 g/dL (6.3-8.2)
[2023-04-05 19:53] LABS: INR 1.1 (<1.2); Partial Thromboplastin Time 27.3 sec (22.0-30.0); Prothrombin Time 11.8 sec (10.0-12.5)
[2023-04-05 20:00] LABS: NT-Pro-B-Type Natriuretic Pept 2950 pg/mL
[2023-04-05 20:06] LABS: Basophils % (A) 1 %; Eosinophils # (A) 0.1 k/uL (0-0.7); Eosinophils % (A) 1 %; HCT 38.4 % (39.0-53.0); HGB 13.4 gm/dL (13.0-17.5); Lymphocytes # (A) 0.6 k/uL (1.0-4.8); Lymphocytes % (A) 8 %; MCH 32.6 pg (25.0-35.0); MCV 93.2 fL (80.0-100.0); Mean Platelet Volume 8.6; Monocytes # (A) 0.7 k/uL (0-1.0); Monocytes % (A) 9 %; Neutrophils # (A) 6.2 k/uL (1.3-7.7); Neutrophils % (A) 80 %; Platelet Count 190 k/uL (150-450); RBC 4.12 m/uL (4.30-5.90); RDW 12.1 % (11.5-15.5); WBC 7.8 k/uL (3.8-10.6)
--- NOTE | 2023-04-05 20:06 | XR ---
EXAMINATION TYPE: XR chest 1V portable DATE OF EXAM: 04/05/2023 Comparison: 01/08/2022 Clinical History: 77-year-old male sob Findings: Focal pleural parenchymal opacity medial right upper lobe remains unchanged, suspected chronic pleura l parenchymal scarring. Hyperinflation. Prominent epicardial fat pad along the right heart margin. No jaquan consolidation or pleural effusion is seen. Impression: COPD with chronic pleural parenchymal scarring and opacity at the medial right upper lobe. Prominent epicardial fat pad along the right heart margin. No definite acute process.
--- NOTE | 2023-04-05 20:22 | ED ---
SOB HPI - General Chief Complaint: Shortness of Breath Stated Complaint: LIZZ Time Seen by Provider: 04/05/23 19:10 Source: patient, EMS, RN notes reviewed, old records reviewed Mode of arrival: EMS Limitations: no limitations - History of Present Illness Initial Comments: This is a 77-year-old male to the ER for evaluation today. Patient presents today for evaluation regards to elevated heart rate shortness of breath weakness fever not feeling well. Patient is also complaining of difficulty breathing MD Complaint: shortness of breath, cough, chest pain, pain with inspiration, "asthma attack", anxiety -: days(s) Severity: moderate, severe Severity scale (1-10): 10 Quality: dull, aching, throbbing Consistency: constant Improves With: nothing Known History Of: COPD, asthma Context: recent URI Associated Symptoms: chest pain, pain with inspiration, fever, cough, sputum production Treatments Prior to Arrival: none - Related Data Home Medications Medication Instructions Recorded Confirmed Folic Acid 1 mg PO DAILY 02/03/16 04/05/23 Simvastatin [Zocor] 20 mg PO HS 02/03/16 04/05/23 Apixaban [Eliquis] 5 mg PO BID 01/09/22 04/05/23 Sodium Chloride 0.65% Nasal [Deep 2 spr NASAL BID 01/09/22 04/05/23 Sea (Saline)] Chlorhexidine Gluconate [Periogard] 15 ml PO HS 04/05/23 04/05/23 Cholecalciferol [Vitamin D3 (10 10 mcg PO DAILY 04/05/23 04/05/23 Mcg = 400 Iu)] Lactose-Reduced Food/Fiber [Jevity 250 ml PO TID@0800,1300,1700 04/05/23 04/05/23 1.2 Ever Liquid] Levothyroxine Sodium [Synthroid] 100 mcg PO DAILY 04/05/23 04/05/23 Metoprolol Tartrate [Lopressor] 25 mg PO BID 04/05/23 04/05/23 Terazosin HCl 10 mg PO HS 04/05/23 04/05/23 Thiamine [Vitamin B-1] 100 mg PO DAILY 04/05/23 04/05/23 Previous Rx's Medication Instructions Recorded Amiodarone [Cordarone] 200 mg PO BID #60 tab 04/10/23 Pantoprazole [Protonix] 40 mg PO DAILY #30 tab 04/10/23 cefUROXime axetiL [Ceftin] 500 mg PO BID 2 Days #4 tab 04/10/23 dexAMETHasone [Decadron] 6 mg PO DAILY #5 tablet 04/10/23 Allergies Allergy/AdvReac Type Severity Reaction Status Date / Time No Known Allergies Allergy Verified 04/05/23 22:20 Review of Systems ROS Statement: Those systems with pertinent positive or pertinent negative responses have been documented in the HPI. ROS Other: All systems not noted in ROS Statement are negative. Past Medical History Past Medical History: Atrial Fibrillation, Cancer, Eye Disorder, Hyperlipidemia, Hypertension, Prostate Disorder, Thyroid Disorder Additional Past Medical History / Comment(s): artificial voice box, throat ca, lung ca, hx of radiation, occasional SOB, cataract both eyes History of Any Multi-Drug Resistant Organisms: None Reported Additional Past Surgical History / Comment(s): total laryngectomy, bx of lung nodule, BL cataract, PEG tube [facility] because food got stuck in his throat pt had EGD done told him he had a blockage in his throat and he needed a PEG Pt has a protatic tube in his trachy prior. peg placed 2022. colonoscopy,egd Past Anesthesia/Blood Transfusion Reactions: No Reported Reaction Additional Past Anesthesia/Blood Transfusion Reaction / Comment(s): has had laryngectomy Past Psychological History: No Psychological Hx Reported Smoking Status: Former smoker - Past Family History Mother Family Medical History: Cancer Additional Family Medical History / Comment(s): lung General Exam Limitations: no limitations General appearance: alert, in no apparent distress, anxious, in distress Head exam: Present: atraumatic, normocephalic, normal inspection Eye exam: Present: normal appearance, PERRL, EOMI. Absent: scleral icterus, conjunctival injection, periorbital swelling ENT exam: Present: normal exam, mucous membranes moist Neck exam: Present: normal inspection. Absent: tenderness, meningismus, lymphadenopathy Respiratory exam: Present: normal lung sounds bilaterally. Absent: respiratory distress, wheezes, rales, rhonchi, stridor Cardiovascular Exam: Present: tachycardia, irregular rhythm, normal heart sounds. Absent: systolic murmur, diastolic murmur, rubs, gallop, clicks GI/Abdominal exam: Present: soft, normal bowel sounds. Absent: distended, tenderness, guarding, rebound, rigid Extremities exam: Present: normal inspection, full ROM, normal capillary refill. Absent: tenderness, pedal edema, joint swelling, calf tenderness Back exam: Present: normal inspection Neurological exam: Present: alert, oriented X3, CN II-XII intact Psychiatric exam: Present: normal affect, normal mood Skin exam: Present: warm, dry, intact, normal color. Absent: rash Course Vital Signs 04/05/23 04/05/23 04/05/23 19:15 19:23 19:26 Temperature 101.0 F H Pulse Rate 124 H 99 Respiratory 30 H Rate Blood Pressure 167/121 O2 Sat by Pulse 98 Oximetry Fraction of 60 Inspired Oxygen (FIO2) 04/05/23 04/05/23 04/05/23 19:30 20:03 20:40 Temperature Pulse Rate 146 H 140 H 125 H Respiratory 32 H 30 H Rate Blood Pressure 128/100 123/74 O2 Sat by Pulse 96 93 L Oximetry Fraction of Inspired Oxygen (FIO2) 04/05/23 04/05/23 04/05/23 22:00 22:17 22:31 Temperature 97.9 F Pulse Rate 96 93 Respiratory 30 H 30 H Rate Blood Pressure 113/63 124/72 O2 Sat by Pulse 97 99 Oximetry Fraction of Inspired Oxygen (FIO2) 04/06/23 04/06/23 04/06/23 00:26 00:42 01:41 Temperature Pulse Rate 93 99 115 H Respiratory 26 H Rate Blood Pressure 114/73 O2 Sat by Pulse 95 Oximetry Fraction of Inspired Oxygen (FIO2) 04/06/23 04/06/23 04/06/23 07:30 08:21 10:25 Temperature Pulse Rate 91 92 Respiratory 18 18 Rate Blood Pressure 146/88 146/88 O2 Sat by Pulse 99 98 95 Oximetry Fraction of 60 Inspired Oxygen (FIO2) 04/06/23 12:26 Temperature 97.9 F Pulse Rate 75 Respiratory 20 Rate Blood Pressure 148/82 O2 Sat by Pulse 96 Oximetry Fraction of Inspired Oxygen (FIO2) - Reevaluation(s) Reevaluation #1: 04/05/23 21:22 Medical record is reviewed Reevaluation #2: 04/05/23 21:22 Patient symptoms unchanged Reevaluation #3: 04/05/23 21:22 Patient informed of results and questions answered Reevaluation #4: Was pt. sent in by a medical professional or institution (AMAYA Huddleston, SYSTEMS PROJECT MANAGER, urgent care, hospital, or intermediate...) When possible be specific @ -no Did you speak to anyone other than the patient for history (EMS, parent, family, police, friend...)? What history was obtained from this source @ -no Did you review nursing and triage notes (agree or disagree)? Why? @ -agree Are old charts reviewed (outside hosp., previous admission, EMS record, old EKG, old radiological studies, urgent care reports/EKG's, intermediate records)? Report findings @ -yes Differential Diagnosis (chest pain, altered mental status, abdominal pain women, abdominal pain men, vaginal bleeding, weakness, fever, dyspnea, syncope, head ache, dizziness, GI bleed, back pain, seizure, CVA, palpatations, mental health, musculoskeletal)? @ -prior EKG interpreted by me (3pts min.). @ -yes X-rays interpreted by me (1pt min.). @ -yes negative for acute disease CT interpreted by me (1pt min.). @ -no U/S interpreted by me (1pt. min.). @ -no What testing was considered but not performed or refused? (CT, X-rays, U/S, labs)? Why? @ -none What meds were considered but not given or refused? Why? @ -none Did you discuss the management of the patient with other professionals (professionals i.e. AMAYA Huddleston, SYSTEMS PROJECT MANAGER, lab, RT, psych nurse, vp digital marketing social media and crm, trash man, teacher, chief business officer, case picker)? Give summary @ -no Was smoking cessation discussed for >3mins.? @ -no Was critical care preformed (if so, how long)? @ -yes31 Were there social determinants of health that impacted care today? How? (Homelessness, low income, unemployed, alcoholism, drug addiction, transportation, low edu. Level, literacy, decrease access to med. care, intermediate, rehab)? @ -none Was there de-escalation of care discussed even if they declined (Discuss DNR or withdrawal of care, Hospice)? DNR status @ -no What co-morbidities impacted this encounter? (DM, HTN, Smoking, COPD, CAD, Cancer, CVA, ARF, Chemo, Hep., AIDS, mental health diagnosis, sleep apnea, morbid obesity)? @ -none Was patient admitted / discharged? Hospital course, mention meds given and route, prescriptions, significant lab abnormalities, going to OR and other pertinent info. @ - 77 male to ER for evaluation patient will be admitted for atrial fibrillation with RVR fever and pneumonia. Patient placed on IV antibiotics and heart rate control Admitted Undiagnosed new problem with uncertain prognosis? @ -no Drug Therapy requiring intensive monitoring for toxicity (Heparin, Nitro, Insulin, Cardizem)? @ -no Were any procedures done? @ -no Diagnosis/symptom? @ -Arrhythmia A-fib with RVR, pneumonia Acute, or Chronic, or Acute on Chronic? @ -Acute Uncomplicated (without systemic symptoms) or Complicated (systemic symptoms)? @ -Complicated Side effects of treatment? @ -no Exacerbation, Progression, or Severe Exacerbation? @ -exacerbation Poses a threat to life or bodily function? How? (Chest pain, [place], [place], pneumonia, PE, COPD, DKA, ARF, appy, cholecystitis, CVA, Diverticulitis, Homicidal, Suicidal, threat to staff... and all critical care pts) @ -yes with significant arrhythmia in extreme of age Reevaluation #5: Differential Dyspnea: Coronary syndrome, arrhythmia, tamponade, asthma, COPD, pulmonary embolism, pneumonia, pneumothorax, pulmonary effusion, anaphylaxis, diabetic ketoacidosis, flailed chest, pulmonary contusion, diaphragmatic rupture, anemia, neuromuscular, this is not meant to be an all-inclusive list. Differential Fever: Pneumonia, viral URI, endocarditis, myocarditis, pericarditis, otitis, sinusitis, peritonsillar Abscess, retropharyngeal Abscess, epiglottitis, peritonitis, appendicitis, Emerald cystitis, diverticulitis, hepatitis, colitis, UTI, PID, TOA, pyelonephritis, prostatitis, epididymitis, meningitis, e ncephalitis, pulmonary embolism, CVA, thyroid storm, pancreatitis, adrenal crisis, cavernous sinus thrombosis, this is not meant to be an all-inclusive list. Differential Palpitations Ventricular arrhythmias, atrial arrhythmias, myocardial infarction, anemia, thyrotoxicosis, electrolyte imbalance, hypokalemia, pulmonary embolism, pulmonary disease, drugs, alcohol, anxiety, stress.... This is not meant to be an all-inclusive list. - Consultations Consultation #1: Spoke with [facility] who agrees to the admission Medical Decision Making - Medical Decision Making 77 male to ER for evaluation patient will be admitted for atrial fibrillation with RVR fever and pneumonia. Patient placed on IV antibiotics and heart rate control - Lab Data Result diagrams: 04/10/23 06:00 04/11/23 11:36 Lab Results 04/05/23 04/05/23 04/05/23 Range/Units 19:22 19:22 19:22 WBC 7.8 (3.8-10.6) k/uL RBC 4.12 L (4.30-5.90) m/uL Hgb 13.4 (13.0-17.5) gm/dL Hct 38.4 L (39.0-53.0) % MCV 93.2 (80.0-100.0) fL MCH 32.6 (25.0-35.0) pg MCHC 35.0 (31.0-37.0) g/dL RDW 12.1 (11.5-15.5) % Plt Count 190 (150-450) k/uL MPV 8.6 Neutrophils % 80 % Lymphocytes % 8 % Monocytes % 9 % Eosinophils % 1 % Basophils % 1 % Neutrophils # 6.2 (1.3-7.7) k/uL Lymphocytes # 0.6 L (1.0-4.8) k/uL Monocytes # 0.7 (0-1.0) k/uL Eosinophils # 0.1 (0-0.7) k/uL Basophils # 0.0 (0-0.2) k/uL PT 11.8 (10.0-12.5) sec INR 1.1 (<1.2) APTT 27.3 (22.0-30.0) sec Sodium 129 L (137-145) mmol/L Potassium 3.8 (3.5-5.1) mmol/L Chloride 97 L (98-107) mmol/L Carbon Dioxide 24 (22-30) mmol/L Anion Gap 8 mmol/L BUN 23 H (9-20) mg/dL Creatinine 0.65 L (0.66-1.25) mg/dL Est GFR (CKD-EPI)AfAm >90 (>60 ml/min/1.73 sqM) Est GFR (CKD-EPI)NonAf >90 (>60 ml/min/1.73 sqM) Glucose 184 H (74-99) mg/dL Plasma Lactic Acid Milton (0.7-2.0) mmol/L Calcium 8.2 L (8.4-10.2) mg/dL Magnesium 1.7 (1.6-2.3) mg/dL Total Bilirubin 1.0 (0.2-1.3) mg/dL AST 41 (17-59) U/L ALT 33 (4-49) U/L Alkaline Phosphatase 96 (38-126) U/L Troponin I (0.000-0.034) ng/mL NT-Pro-B Natriuret Pep 2950 pg/mL Total Protein 6.6 (6.3-8.2) g/dL Albumin 3.8 (3.5-5.0) g/dL Influenza Type A (PCR) (Not Detectd) Influenza Type B (PCR) (Not Detectd) RSV (PCR) (Not Detectd) SARS-CoV-2 (PCR) (Not Detectd) 04/05/23 04/05/23 04/05/23 Range/Units 19:22 19:22 21:08 WBC (3.8-10.6) k/uL RBC (4.30-5.90) m/uL Hgb (13.0-17.5) gm/dL Hct (39.0-53.0) % MCV (80.0-100.0) fL MCH (25.0-35.0) pg MCHC (31.0-37.0) g/dL RDW (11.5-15.5) % Plt Count (150-450) k/uL MPV Neutrophils % % Lymphocytes % % Monocytes % % Eosinophils % % Basophils % % Neutrophils # (1.3-7.7) k/uL Lymphocytes # (1.0-4.8) k/uL Monocytes # (0-1.0) k/uL Eosinophils # (0-0.7) k/uL Basophils # (0-0.2) k/uL PT (10.0-12.5) sec INR (<1.2) APTT (22.0-30.0) sec Sodium (137-145) mmol/L Potassium (3.5-5.1) mmol/L Chloride (98-107) mmol/L Carbon Dioxide (22-30) mmol/L Anion Gap mmol/L BUN (9-20) mg/dL Creatinine (0.66-1.25) mg/dL Est GFR (CKD-EPI)AfAm (>60 ml/min/1.73 sqM) Est GFR (CKD-EPI)NonAf (>60 ml/min/1.73 sqM) Glucose (74-99) mg/dL Plasma Lactic Acid [place] 1.4 (0.7-2.0) mmol/L Calcium (8.4-10.2) mg/dL Magnesium (1.6-2.3) mg/dL Total Bilirubin (0.2-1.3) mg/dL AST (17-59) U/L ALT (4-49) U/L Alkaline Phosphatase (38-126) U/L Troponin I <0.012 (0.000-0.034) ng/mL NT-Pro-B Natriuret Pep pg/mL Total Protein (6.3-8.2) g/dL Albumin (3.5-5.0) g/dL Influenza Type A (PCR) Not Detected (Not Detectd) Influenza Type B (PCR) Not Detected (Not Detectd) RSV (PCR) Not Detected (Not Detectd) SARS-CoV-2 (PCR) Detected A (Not Detectd) - EKG Data -: EKG Interpreted by Me (EKG shows atrial fibrillation with RVR 153 QRS 75 QTc 345) - Radiology Data Radiology results: report reviewed (Chest x-ray is positive for pneumonia), im age reviewed Critical Care Time Critical Care Time: Yes Total Critical Care Time: 31 Disposition Clinical Impression: Acute exacerbation of chronic obstructive pulmonary disease, Weakness, Atrial fibrillation with RVR, Community acquired pneumonia, Fever, Coronavirus infection Disposition: ADMITTED IP TO THIS HOSP Condition: Serious Is patient prescribed a controlled substance at d/c from ED?: No Time of Disposition: 21:00
[2023-04-05] MEDS: DILTIAZEM DRIP BOLUS FROM BAG 1 MG SOLN IV ONE (20:37)
[2023-04-05] MEDS: ACETAMINOPHEN IV (For NPO) 1,000 MG in EMPTY BAG 1 BAG IVPB STA (20:39)
[2023-04-05] MEDS: DILTIAZEM 125 MG in SODIUM CHLORIDE 0.9% 100 ML IV SCH (20:49)
[2023-04-05] MEDS ORDERED: ACETAMINOPHEN TAB 325 MG TAB PO PRN (21:07)
[2023-04-05] MEDS ORDERED: ONDANSETRON 4 MG/2 ML VIAL IVP PRN (21:07)
[2023-04-05] MEDS ORDERED: NALOXONE 0.4 MG/ML 1 ML VIAL IV PRN (21:07)
[2023-04-05] MEDS ORDERED: MORPHINE SULFATE 4 MG/ML SYRINGE IV PRN (21:07)
[2023-04-05] MEDS ORDERED: PNEUMONIA PROTOCOL UTILIZED 1 EACH MISC PO PRN (21:07)
[2023-04-05] MEDS ORDERED: IBUPROFEN 400 MG TAB PO PRN (21:07)
[2023-04-05] MEDS: IBUPROFEN IV 800 MG in SODIUM CHLORIDE 0.9% 250 ML IV ONE (21:45)
[2023-04-05] MEDS: PIPERACILLIN-TAZOBACTAM 3.375 GM in SODIUM CHLORIDE 0.9% 100 ML IVPB STA (22:29)
[2023-04-05] MEDS: AZITHROMYCIN 500 MG in SODIUM CHLORIDE 0.9% 250 ML IVPB STA (23:54)
[2023-04-06] MEDS: SODIUM CHLORIDE 0.9% 1,000 ML IV SCH (00:22)
[2023-04-06] MEDS: IPRATROPIUM-ALBUTEROL 3 ML NEB INHALATION PRN (00:24)
--- NOTE | 2023-04-06 03:00 | P.HPIM ---
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 Reports he has short of breath for the past 3 days with cough productive of greenish phlegm. Denies experiencing chest discomfort, fever, chills, nausea, vomiting, abdominal pain, diarrhea. Chest x-ray in the emergency room was consistent with COPD without evidence of acute changes. EKG revealed A. fib with RVR at 153 bpm as reviewed by me. Laboratory evaluation was remarkable for Caronavirus PCR testing positive. Upon arrival at the Ed, the patient's temp was 101.0F with pulse 124, respiratory rate 30, SpO2 98% on trach collar with 10 L/min O2. ED documentation reviewed and case discussed with ED provider. Review of systems: Pertinent positives and negatives as discussed in HPI, a complete review of systems was performed and all other systems are negative. Physical examination: Vital signs reviewed General: non toxic, no distress, appears at stated age, normal weight Derm: no unusual rashes/lesions, warm Head: atraumatic, normocephalic, symmetric Eyes: EOMI, no lid lag, anicteric sclera, pupils equal round reactive to light ENT: Nose and ears atraumatic Neck: No cervical lymphadenopathy, trachea midline, supple, s/p tracheostomy with trach collar in place Mouth: no lip lesion, mucus membranes moist Cardiovascular: irregularly irregular, no murmur, positive dorsalis pedis pulse bilateral, no edema Lungs: CTA bilateral, no rhonchi, no rales, no accessory muscle use Abdominal: soft, nontender to palpation, no guarding Ext: muscle strength 5 out of 5 in all 4 extremities grossly, no gross muscle atrophy, no contractures, Neuro: CN II-XI grossly intact, no gross focal neuro deficits Psych: Alert, oriented, appropriate affect Assessment: Afib with RVR Sepsis secondary to COVID-19 infection with hypoxic respiratory failure, unable to r/o bacterial pneumonia Hypochloremic hyponatremia Chronic conditions: HTN, HLD, Hypothyroidism, s/p laryngectomy with tracheostomy Imaging: Chest x-ray in the emergency room was consistent with COPD without evidence of acute changes. EKG revealed A. fib with RVR at 153 bpm as reviewed by me. Data Review: Laboratory evaluation was remarkable for Caronavirus PCR testing positive. Upon arrival at the Ed, the patient's temp was 101.0F with pulse 124, respiratory rate 30, SpO2 98% on trach collar with RA. Plan: C/w Cardizem infusion Cardiology consulted Cardiac monitoring C/w home Eliquis dosing Start Decadron C/w home meds Check procalcitonin levels and c/w Azithromycin and Zosyn for now F/u legionella testing and blood cultures IVFs with NS 100 ml/hr Monitor BMP DVT prophylaxis: Eliquis The patient is admitted with an anticipated greater than 2 midnight stay for evaluation of Afib CODE STATUS: Full Code Discussed with: Patient Anticipated discharge place: Home Past Medical History Past Medical History: Atrial Fibrillation, Cancer, Eye Disorder, Hyperlipidemia, Hypertension, Prostate Disorder, Thyroid Disorder Additional Past Medical History / Comment(s): artificial voice box, throat ca, lung ca, hx of radiation, occasional SOB, cataract both eyes History of Any Multi-Drug Resistant Organisms: None Reported Additional Past Surgical History / Comment(s): total laryngectomy, bx of lung nodule, BL cataract, PEG tube placement last week at [facility] because food got stuck in his throat pt had EGD done told him he had a blockage in his throat and he needed a PEG Pt has a protatic tube in his trachy prior. peg placed 2022. colonoscopy,egd Past Anesthesia/Blood Transfusion Reactions: No Reported Reaction Additional Past Anesthesia/Blood Transfusion Reaction / Comment(s): has had laryngectomy Past Psychological History: No Psychological Hx Reported Smoking Status: Former smoker - Past Family History Mother Family Medical History: Cancer Additional Family Medical History / Comment(s): lung Medications and Allergies Home Medications Medication Instructions Recorded Confirmed Type Folic Acid 1 mg PO DAILY 02/03/16 04/05/23 History Simvastatin [Zocor] 20 mg PO HS 02/03/16 04/05/23 History Apixaban [Eliquis] 5 mg PO BID 01/09/22 04/05/23 History Sodium Chloride 0.65% Nasal [Deep 2 spr NASAL BID 01/09/22 04/05/23 History Sea (Saline)] Chlorhexidine Gluconate [Periogard] 15 ml PO HS 04/05/23 04/05/23 History Cholecalciferol [Vitamin D3 (10 10 mcg PO DAILY 04/05/23 04/05/23 History Mcg = 400 Iu)] Lactose-Reduced Food/Fiber [Jevity 250 ml PO TID@0800,1300,1700 04/05/23 04/05/23 History 1.2 Ever Liquid] Levothyroxine Sodium [Synthroid] 100 mcg PO DAILY 04/05/23 04/05/23 History Metoprolol Tartrate [Lopressor] 25 mg PO BID 04/05/23 04/05/23 History Terazosin HCl 10 mg PO HS 04/05/23 04/05/23 History Thiamine [Vitamin B-1] 100 mg PO DAILY 04/05/23 04/05/23 History Allergies Allergy/AdvReac Type Severity Reaction Status Date / Time No Known Allergies Allergy Verified 04/05/23 22:20 Physical Exam Vitals: Vital Signs Temp Pulse Resp BP Pulse Ox FiO2 04/06/23 01:41 115 H 26 H 114/73 95 04/06/23 00:42 99 04/06/23 00:26 93 04/05/23 22:31 93 30 H 124/72 99 04/05/23 22:17 96 30 H 113/63 97 04/05/23 22:00 97.9 F 04/05/23 20:40 125 H 30 H 123/74 93 L 04/05/23 20:03 140 H 32 H 128/100 96 04/05/23 19:30 146 H 04/05/23 19:26 60 04/05/23 19:23 99 04/05/23 19:15 101.0 F H 124 H 30 H 167/121 98 Intake and Output 04/05/23 04/05/23 04/06/23 14:59 22:59 06:59 Other: Weight 72.575 kg Results CBC & Chem 7: 04/05/23 19:22 04/05/23 19:22 Labs: Abnormal Lab Results - Last 24 Hours (Table) 04/05/23 04/05/23 04/05/23 Range/Units 19:22 19:22 21:08 RBC 4.12 L (4.30-5.90) m/uL Hct 38.4 L (39.0-53.0) % Lymphocytes # 0.6 L (1.0-4.8) k/uL Sodium 129 L (137-145) mmol/L Chloride 97 L (98-107) mmol/L BUN 23 H (9-20) mg/dL Creatinine 0.65 L (0.66-1.25) mg/dL Glucose 184 H (74-99) mg/dL Calcium 8.2 L (8.4-10.2) mg/dL SARS-CoV-2 (PCR) Detected A (Not Detectd)
[2023-04-06] MEDS: dexAMETHasone 2 MG TAB PO ONE (03:37)
[2023-04-06] MEDS: PIPERACILLIN-TAZOBACTAM 3.375 GM in SODIUM CHLORIDE 0.9% 100 ML IVPB SCH (03:52)
[2023-04-06 07:15] LABS: Basophils % (A) 0 %; Eosinophils % (A) 0 %; HCT 35.1 % (39.0-53.0); HGB 12.3 gm/dL (13.0-17.5); Lymphocytes # (A) 0.3 k/uL (1.0-4.8); Lymphocytes % (A) 4 %; MCH 32.6 pg (25.0-35.0); MCHC 34.9 g/dL (31.0-37.0); MCV 93.5 fL (80.0-100.0); Monocytes # (A) 0.3 k/uL (0-1.0); Monocytes % (A) 4 %; Neutrophils # (A) 6.2 k/uL (1.3-7.7); Neutrophils % (A) 90 %; Platelet Count 187 k/uL (150-450); RBC 3.75 m/uL (4.30-5.90); RDW 12.4 % (11.5-15.5); WBC 6.9 k/uL (3.8-10.6)
[2023-04-06 07:29] LABS: ALT 28 U/L (4-49); AST 37 U/L (17-59); African American GFR (CKD) >90 (>60 ml/min/1.73 sqM); Albumin 3.4 g/dL (3.5-5.0); Alkaline Phosphatase 89 U/L (38-126); Anion Gap 9 mmol/L; Blood Urea Nitrogen 21 mg/dL (9-20); Calcium 8.3 mg/dL (8.4-10.2); Carbon Dioxide 23 mmol/L (22-30); Chloride 100 mmol/L (98-107); Glucose 113 mg/dL (74-99); Magnesium 1.9 mg/dL (1.6-2.3); Non-African American GFR(CKD) >90 (>60 ml/min/1.73 sqM); Phosphorus 3.1 mg/dL (2.5-4.5); Potassium 3.5 mmol/L (3.5-5.1); Sodium 132 mmol/L (137-145); Total Bilirubin 1.1 mg/dL (0.2-1.3); Total Protein 6.3 g/dL (6.3-8.2)
--- NOTE | 2023-04-06 09:07 | XR ---
EXAMINATION TYPE: XR chest 1V portable DATE OF EXAM: 04/06/2023 Comparison: 04/05/2023 Clinical History: 77-year-old male pneumonia Findings: Heart upper limits of normal in size. Chronic volume loss and pleural-parenchymal opacity medial righ t upper lobe is unchanged. Prominent epicardial fat pad along the right heart margin is unchanged. Ex ternal artifacts left upper chest. Interstitial prominence is unchanged. No new focal opacity is seen or pleural effusion. Impression: Chronic changes right upper lung. No definite acute process.
[2023-04-06] MEDS: LEVOTHYROXINE 100 MCG TAB PO SCH (10:07)
[2023-04-06] MEDS: AMIODARONE 200 MG TAB PO SCH (10:07)
[2023-04-06] MEDS: METOPROLOL TARTRATE 25 MG TAB PO SCH (10:08)
[2023-04-06] MEDS: APIXABAN 5 MG TAB PO SCH (10:08)
[2023-04-06] MEDS: FOLIC ACID 1 MG TAB PO SCH (10:08)
[2023-04-06] MEDS: dexAMETHasone 2 MG TAB PO SCH (10:09)
[2023-04-06] MEDS: THIAMINE 100 MG TAB PO SCH (10:23)
[2023-04-06] MEDS: PANTOPRAZOLE 40 MG/10 ML VIAL IV SCH (10:23)
--- NOTE | 2023-04-06 11:04 | P.CRDCN ---
History of Present Illness Consult date: 04/06/23 Consult reason: atrial fibrillation (rvr) History of present illness: History of present illness: This is a 77-year-old male patient of Dr. Dereck Lr with past medical history of hypertension, dyslipidemia, chronic atrial fibrillation on Eliquis, hypothyroidism and also history of throat cancer status post laryngectomy and tracheostomy with voicebox placement. We have been asked to evaluate the patient for atrial fibrillation with RVR. Patient states he came into the hospital due to shortness of breath is unable to get air out of his lungs. Shortness of breath has been going on for the past 3 days with cough and greenish sputum production. No fever or chills. No chest pain. Patient is seen today in the emergency center waiting for a bed on the cardiac stepdown unit. He has been started on Cardizem bolus of 50 mg followed by drip at 5 mg/h. EKG #1 atrial fibrillation with ventricular rate of 153, #2 sinus rhythm at 90 bpm Chest x-ray: COPD with chronic pleural-parenchymal scarring and obesity at the medial right upper lung lobe no acute process. WBC 6.9, hemoglobin 12.3, platelet count 187. Sodium 132, potassium 3.5, BUN 21 creatinine 0.69. Blood sugar 113. Liver function test are normal. Troponin negative x 1. proBNP 2950. Influenza A, influenza B, RSV not detected. COVID- 19 detected. Home cardiac medications: Eliquis 5 mg twice daily, Lopressor 25 mg twice daily and also on levothyroxine 100 mcg daily. Review Of Systems: At the time of my exam: CONSTITUTIONAL: Denies fever or chills. HEENT: Denies blurred vision, vision changes, or eye pain. Denies hemoptysis CARDIOVASCULAR: Denies chest pain. Denies orthopnea. Denies PND. Denies palpitations RESPIRATORY: Denies shortness of breath. GASTROINTESTINAL: Denies abdominal pain. Denies nausea or vomiting. HEMATOLOGIC: Denies bleeding disorders. GENITOURINARY: Denies any blood in urine. SKIN: Denies pruitis. Denies rash. Physical examination: Gen: This is a 77-year-old male. He appears to be in no acute distress. VS: reviewed temperature max 101, heart rate 92, blood pressure 146/88, pulse ox 95% on 10 mL trach collar. HEENT: Head is atraumatic, normocephalic. Pupils equal, round. Sclerae is anicteric. NECK: Supple. No JVD. Status post tracheotomy with trach collar in place. LUNGS: Clear to auscultation. No wheezes or rhonchi. No intercostal retractions. HEART: Regular rate and rhythm. No murmur. ABDOMEN: Soft No tenderness. EXTREMITIES: No pedal edema. No calf tenderness. NEUROLOGICAL: Patient is awake, alert and oriented x3. Assessment: Chronic atrial fibrillation with RVR, currently rate controlled COVID-19 infection Hypertension Hyperlipidemia Hypothyroidism History of throat cancer Plan: Resume patient's home cardiac medications Discontinue Cardizem drip Start patient on amiodarone 200 mg twice daily oral Obtain TSH Obtain limited 2-D echocardiogram Further recommendations to follow based upon clinical course Thank you kindly for this consultation. Nurse practitioner note has been reviewed, I agree with documented findings and plan of care. Patient was seen and examined. Past Medical History Past Medical History: Atrial Fibrillation, Cancer, Eye Disorder, Hyperlipidemia, Hypertension, Prostate Disorder, Thyroid Disorder Additional Past Medical History / Comment(s): artificial voice box, throat ca, lung ca, hx of radiation, occasional SOB, cataract both eyes History of Any Multi-Drug Resistant Organisms: None Reported Additional Past Surgical History / Comment(s): total laryngectomy, bx of lung nodule, BL cataract, PEG tube placement last week at [facility] because food got stuck in his throat pt had EGD done told him he had a blockage in his throat and he needed a PEG Pt has a protatic tube in his trachy prior. peg placed 2022. colonoscopy,egd Past Anesthesia/Blood Transfusion Reactions: No Reported Reaction Additional Past Anesthesia/Blood Transfusion Reaction / Comment(s): has had laryngectomy Past Psychological History: No Psychological Hx Reported Smoking Status: Former smoker - Past Family History Mother Family Medical History: Cancer Additional Family Medical History / Comment(s): lung Medications and Allergies Home Medications Medication Instructions Recorded Confirmed Type Folic Acid 1 mg PO DAILY 02/03/16 04/05/23 History Simvastatin [Zocor] 20 mg PO HS 02/03/16 04/05/23 History Apixaban [Eliquis] 5 mg PO BID 01/09/22 04/05/23 History Sodium Chloride 0.65% Nasal [Deep 2 spr NASAL BID 01/09/22 04/05/23 History Sea (Saline)] Chlorhexidine Gluconate [Periogard] 15 ml PO HS 04/05/23 04/05/23 History Cholecalciferol [Vitamin D3 (10 10 mcg PO DAILY 04/05/23 04/05/23 History Mcg = 400 Iu)] Lactose-Reduced Food/Fiber [Jevity 250 ml PO TID@0800,1300,1700 04/05/23 04/05/23 History 1.2 Ever Liquid] Levothyroxine Sodium [Synthroid] 100 mcg PO DAILY 04/05/23 04/05/23 History Metoprolol Tartrate [Lopressor] 25 mg PO BID 04/05/23 04/05/23 History Terazosin HCl 10 mg PO HS 04/05/23 04/05/23 History Thiamine [Vitamin B-1] 100 mg PO DAILY 04/05/23 04/05/23 History Allergies Allergy/AdvReac Type Severity Reaction Status Date / Time No Known Allergies Allergy Verified 04/05/23 22:20 Physical Exam Vitals: Vital Signs Temp Pulse Resp BP Pulse Ox FiO2 04/06/23 07:30 91 18 146/88 99 04/06/23 01:41 115 H 26 H 114/73 95 04/06/23 00:42 99 04/06/23 00:26 93 04/05/23 22:31 93 30 H 124/72 99 04/05/23 22:17 96 30 H 113/63 97 04/05/23 22:00 97.9 F 04/05/23 20:40 125 H 30 H 123/74 93 L 04/05/23 20:03 140 H 32 H 128/100 96 04/05/23 19:30 146 H 04/05/23 19:26 60 04/05/23 19:23 99 04/05/23 19:15 101.0 F H 124 H 30 H 167/121 98 Intake and Output 04/05/23 04/06/23 04/06/23 22:59 06:59 14:59 Other: Weight 72.575 kg Results 04/06/23 06:45 04/06/23 06:45 Cardiac Enzymes 04/05/23 04/05/23 04/06/23 Range/Units 19:22 19:22 06:45 AST 41 37 (17-59) U/L Troponin I <0.012 (0.000-0.034) ng/mL Coagulation 04/05/23 Range/Units 19:22 PT 11.8 (10.0-12.5) sec APTT 27.3 (22.0-30.0) sec CBC 04/05/23 04/06/23 Range/Units 19:22 06:45 WBC 7.8 6.9 (3.8-10.6) k/uL RBC 4.12 L 3.75 L (4.30-5.90) m/uL Hgb 13.4 12.3 L (13.0-17.5) gm/dL Hct 38.4 L 35.1 L (39.0-53.0) % Plt Count 190 187 (150-450) k/uL Comprehensive Metabolic Panel 04/05/23 04/06/23 Range/Units 19:22 06:45 Sodium 129 L 132 L (137-145) mmol/L Potassium 3.8 3.5 (3.5-5.1) mmol/L Chloride 97 L 100 (98-107) mmol/L Carbon Dioxide 24 23 (22-30) mmol/L BUN 23 H 21 H (9-20) mg/dL Creatinine 0.65 L 0.69 (0.66-1.25) mg/dL Glucose 184 H 113 H (74-99) mg/dL Calcium 8.2 L 8.3 L (8.4-10.2) mg/dL AST 41 37 (17-59) U/L ALT 33 28 (4-49) U/L Alkaline Phosphatase 96 89 (38-126) U/L Total Protein 6.6 6.3 (6.3-8.2) g/dL Albumin 3.8 3.4 L (3.5-5.0) g/dL Current Medications Generic Name Dose Route Start Last Admin Trade Name Freq PRN Reason Stop Dose Admin Acetaminophen 650 mg 04/05/23 21:07 Acetaminophen Tab 325 Mg Tab PO Q6HR PRN Mild Pain or Fever > 100.5 Apixaban 5 mg 04/06/23 09:00 Apixaban 5 Mg Tab PO BID [facility] Protocol Atorvastatin Calcium 10 mg 04/06/23 21:00 Atorvastatin 10 Mg Tab PO HS [facility] Dexamethasone 6 mg 04/06/23 09:00 Dexamethasone 2 Mg Tab PO DAILY [facility] Doxazosin Mesylate 8 mg 04/06/23 21:00 Doxazosin 4 Mg Tab PO HS [facility] Folic Acid 1 mg 04/06/23 09:00 Folic Acid 1 Mg Tab PO DAILY [facility] Diltiazem HCl 125 mg/ Sodium 125 mls @ 5 mls/hr 04/05/23 21:00 04/05/23 20:49 Chloride IV 5 mg/hr .Q24H ALFA 5 mls/hr Administration 5 MG/HR Sodium Chloride 1,000 mls @ 100 mls/hr 04/05/23 21:15 04/06/23 00:22 Saline 0.9% IV 100 mls/hr .Q10H ALFA Administration Piperacillin Sod/Tazobactam 100 mls @ 25 mls/hr 04/06/23 04:00 04/06/23 03:52 Sod 3.375 gm/ Sodium Chloride IVPB 25 mls/hr Q8H ALFA Administration Protocol Azithromycin 500 mg/ Sodium 250 mls @ 250 mls/hr 04/06/23 21:00 Chloride IVPB 04/07/23 21:59 HS [facility] Protocol Ibuprofen 400 mg 04/05/23 21:07 Ibuprofen 400 Mg Tab PO Q6HR PRN Mild Pain or Fever > 100.5 Levothyroxine Sodium 100 mcg 04/06/23 06:30 Levothyroxine 100 Mcg Tab PO DAILY@0630 [facility] Metoprolol Tartrate 25 mg 04/06/23 09:00 Metoprolol Tartrate 25 Mg Tab PO BID [facility] Miscellaneous Information 1 each 04/05/23 21:07 Pneumonia Protocol Utilized 1 Each Misc PO ONCE PRN Per Protocol Morphine Sulfate 4 mg 04/05/23 21:07 Morphine Sulfate 4 Mg/Ml Syringe IV Q4HR PRN Severe Pain (Scale 7 to 10) Naloxone HCl 0.2 mg 04/05/23 21:07 Naloxone 0.4 Mg/Ml 1 Ml Vial IV Q2M PRN Opioid Reversal Ondansetron HCl 4 mg 04/05/23 21:07 Ondansetron 4 Mg/2 Ml Vial IVP Q8HR PRN Nausea And Vomiting Pantoprazole Sodium 40 mg 04/06/23 09:00 Pantoprazole 40 Mg/10 Ml Vial IV DAILY [facility] Thiamine HCl 100 mg 04/06/23 09:00 Thiamine 100 Mg Tab PO DAILY [facility] Intake and Output 0204/06/23 04/06/23 22:59 06:59 14:59 Other: Weight 72.575 kg 04/06/23 06:45 04/06/23 06:45
--- NOTE | 2023-04-06 16:46 | P.PN ---
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 Reports he has short of breath for the past 3 days with cough productive of greenish phlegm. Denies experiencing chest discomfort, fever, chills, nausea, vomiting, abdominal pain, diarrhea. Chest x-ray in the emergency room was consistent with COPD without evidence of acute changes. EKG revealed A. fib with RVR at 153 bpm as reviewed by me. Laboratory evaluation was remarkable for Caronavirus PCR testing positive. Upon arrival at the ED, the patient's temp was 101.0F with pulse 124, respiratory rate 30, SpO2 98% on trach collar with 10 L/min O2. Started on Azithromycin and Zosyn for empiric treatment of PNA. Started on Decadron for COVID treatment. Started on Cardizem drip for A-Fib RVR which has since been discontinued. 04/06 Patient was seen and examined. He reports thick output from his tracheostomy with blood. Breathing improved. CBC Hg 12.3 Hct 35.1. CMP Na 132, BUN 21, glu 113, Ca 8.3, alb 3.1. Procal 0.13. TSH 3. CXR shows chronic changes with no acute infiltrate. Physical examination: Vital signs reviewed General: non toxic, no distress, appears at stated age, normal weight Derm: no unusual rashes/lesions, warm Head: atraumatic, normocephalic, symmetric Eyes: EOMI, no lid lag, anicteric sclera ENT: Nose and ears atraumatic Neck: No cervical lymphadenopathy, trachea midline, supple, s/p tracheostomy with trach collar in place Cardiovascular: irregularly irregular, no murmur, positive dorsalis pedis pulse bilateral, no edema Lungs: Decreased breath sounds bilateral, no rhonchi, no rales, no accessory muscle use Ext: muscle strength 5 out of 5 in all 4 extremities grossly, no gross muscle atrophy, no contractures, Neuro: no gross focal neuro deficits Psych: Alert, oriented, appropriate affect Based on my assessment of this patient, this patient meets a high complexity level of care. Patient has an acute diagnosis of sepsis secondary to COVID-19 with possible tracheobronchitis complicated with atrial fibrillation with RVR poses a threat to life or bodily function. Afib with RVR: Cardiology consulted, started on Amiodarone 200 mg PO BID. Continue Metoprolol 25 mg PO BID. Eliquis 5 mg PO BID for AC. Sepsis secondary to COVID-19 infection: Decadron 6 mg PO QD. Pro-leandro negative. Patient with thick secretions from the tracheostomy with blood. Continue azithromycin 500 mg IV daily and Zosyn 3.375 g IV 3 times a day for now. Pulmonary consult. Acute hypoxic respiratory failure Hypochloremic hyponatremia: Improving with IV hydration. Continue normal saline at 100 mL/h. Chronic conditions: HTN, HLD, Hypothyroidism, s/p laryngectomy with tracheostomy CODE STATUS: FULL CODE. DVT Prophylaxis: Eliquis. GI Prophylaxis: Designated medical POA if patient is not able to make medical decisions for th emselves: I have reviewed the following transportation consultant notes: Cardiology note. I have reviewed the results of the following tests: CBC, CMP, TSH, Procal. I have ordered the following tests: I have discussed the care of this patient with the following independent historian: I have independently interpreted the following test below: CXR. I have discussed the management of this patient with the following physician: Objective - Vital Signs Vital signs: Vital Signs Temp 98.5 F 04/06/23 15:42 Pulse 85 04/06/23 15:42 Resp 23 04/06/23 15:42 BP 136/86 04/06/23 15:42 Pulse Ox 98 04/06/23 15:53 FiO2 40 04/06/23 15:53 Intake & Output 04/05/23 04/06/23 04/06/23 18:59 06:59 18:59 Weight 72.575 kg - Labs CBC & Chem 7: 04/06/23 06:45 04/06/23 06:45 Labs: Abnormal Lab Results - Last 24 Hours (Table) 04/05/23 04/05/23 04/05/23 Range/Units 19:22 19:22 21:08 RBC 4.12 L (4.30-5.90) m/uL Hgb (13.0-17.5) gm/dL Hct 38.4 L (39.0-53.0) % Lymphocytes # 0.6 L (1.0-4.8) k/uL Sodium 129 L (137-145) mmol/L Chloride 97 L (98-107) mmol/L BUN 23 H (9-20) mg/dL Creatinine 0.65 L (0.66-1.25) mg/dL Glucose 184 H (74-99) mg/dL Calcium 8.2 L (8.4-10.2) mg/dL Albumin (3.5-5.0) g/dL Procalcitonin (0.02-0.09) ng/mL SARS-CoV-2 (PCR) Detected A (Not Detectd) 04/06/23 04/06/23 04/06/23 Range/Units 06:45 06:45 06:45 RBC 3.75 L (4.30-5.90) m/uL Hgb 12.3 L (13.0-17.5) gm/dL Hct 35.1 L (39.0-53.0) % Lymphocytes # 0.3 L (1.0-4.8) k/uL Sodium 132 L (137-145) mmol/L Chloride (98-107) mmol/L BUN 21 H (9-20) mg/dL Creatinine (0.66-1.25) mg/dL Glucose 113 H (74-99) mg/dL Calcium 8.3 L (8.4-10.2) mg/dL Albumin 3.4 L (3.5-5.0) g/dL Procalcitonin 0.13 H (0.02-0.09) ng/mL SARS-CoV-2 (PCR) (Not Detectd)
[2023-04-06] MEDS: DOXAZOSIN 4 MG TAB PO SCH (20:35)
[2023-04-06] MEDS: ATORVASTATIN 10 MG TAB PO SCH (20:36)
[2023-04-06] MEDS: AZITHROMYCIN 500 MG in SODIUM CHLORIDE 0.9% 250 ML IVPB SCH (21:28)
--- NOTE | 2023-04-07 03:45 | P.CNPUL ---
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 He follows with a PCP at the [facility]. Patient complains of ongoing worsening shortness of breath that started approximately 3 days ago. He has had an associated cough with increased sputum purulence and some hemoptysis mixed in. He has been febrile. He has been fatigued. He did test positive for COVID on arrival. He is vaccinated and boosted for COVID. He lives at [facility]. Chest x-ray did not show any acute infiltrates or evidence of pneumonia. There is a chronic right upper lobe opacity with associated volume loss correlating with the patient's history of lung CA. Most recent CBC from yesterday: WBC count of 6.9, hemoglobin 12.3, hematocrit 35.1, platelets 187. BMP from yesterday: Sodium 132, potassium 3.5, chloride 100, serum bicarb 23, BUN 21, creatinine 0.69, glucose 113. LFTs not elevated. Troponin less than 0.012. Troponin is 2950. Procalcitonin level 0.13. He has been started on empiric antibiotics including azithromycin and Zosyn. He is currently sitting up in bed, with a trach collar 40%, in no acute distress. He continues to have thick tenacious and purulent sputum from his tracheostomy. He speaks with a voice prosthesis. He is currently afebrile. Of note, the patient was also in A-fib RVR on arrival. He has since converted to normal sinus rhythm. Vital signs are stable. Review of Systems REVIEW OF SYSTEMS: CONSTITUTIONAL: Denies any recent significant weight loss or weight gain. Adm its fever. EYES: Denies change in vision. EARS, NOSE, MOUTH, THROAT: Denies headaches, denies sore throat. CARDIOVASCULAR: Denies chest pain, palpitations or syncopal episodes. RESPIRATORY: See HPI. GASTROINTESTINAL: Denies change in appetite, abdominal pain, nausea and vomiting, or diarrhea GENITOURINARY: Denies hematuria, denies infections. MUSKULOSKELETAL: Denies pain, denies swelling. INTEGUMENTARY: Denies rash, denies eczema. NEUROLOGICAL: Denies recent memory loss, no recent seizure activity. PSYCHIATRIC: Denies anxiety, denies depression. HEMATOLOGIC/LYMPHATIC: Denies anemia, denies enlarged lymph node Past Medical History Past Medical History: Atrial Fibrillation, Cancer, Eye Disorder, Hyperlipidemia, Hypertension, Prostate Disorder, Thyroid Disorder Additional Past Medical History / Comment(s): artificial voice box, throat ca, lung ca, hx of radiation, occasional SOB, cataract both eyes History of Any Multi-Drug Resistant Organisms: None Reported Additional Past Surgical History / Comment(s): total laryngectomy, bx of lung nodule, BL cataract, PEG tube placement last week at [facility] because food got stuck in his throat pt had EGD done told him he had a blockage in his throat and he needed a PEG Pt has a protatic tube in his trachy prior. peg placed 2022. colonoscopy,egd Past Anesthesia/Blood Transfusion Reactions: No Reported Reaction Additional Past Anesthesia/Blood Transfusion Reaction / Comment(s): has had laryngectomy Past Psychological History: No Psychological Hx Reported Smoking Status: Former smoker Past Alcohol Use History: Daily Additional Past Alcohol Use History / Comment(s): quit smoking in 1993 Past Drug Use History: None Reported Additional Drug Use History / Comment(s): one beer a day - Past Family History Mother Family Medical History: Cancer Additional Family Medical History / Comment(s): lung Medications and Allergies Home Medications Medication Instructions Recorded Confirmed Type Folic Acid 1 mg PO DAILY 02/03/16 04/05/23 History Simvastatin [Zocor] 20 mg PO HS 02/03/16 04/05/23 History Apixaban [Eliquis] 5 mg PO BID 01/09/22 04/05/23 History Sodium Chloride 0.65% Nasal [Deep 2 spr NASAL BID 01/09/22 04/05/23 History Sea (Saline)] Chlorhexidine Gluconate [Periogard] 15 ml PO HS 04/05/23 04/05/23 History Cholecalciferol [Vitamin D3 (10 10 mcg PO DAILY 04/05/23 04/05/23 History Mcg = 400 Iu)] Lactose-Reduced Food/Fiber [Jevity 250 ml PO TID@0800,1300,1700 04/05/23 04/05/23 History 1.2 Ever Liquid] Levothyroxine Sodium [Synthroid] 100 mcg PO DAILY 04/05/23 04/05/23 History Metoprolol Tartrate [Lopressor] 25 mg PO BID 04/05/23 04/05/23 History Terazosin HCl 10 mg PO HS 04/05/23 04/05/23 History Thiamine [Vitamin B-1] 100 mg PO DAILY 04/05/23 04/05/23 History Allergies Allergy/AdvReac Type Severity Reaction Status Date / Time No Known Allergies Allergy Verified 04/05/23 22:20 Physical Exam Vitals: Vital Signs Temp Pulse Pulse Resp BP BP Pulse Ox 04/07/23 00:00 98.4 F 67 18 134/82 98 04/06/23 20:00 97.3 F L 74 18 122/74 98 04/06/23 16:45 98.5 F 82 18 129/87 99 04/06/23 15:53 98 04/06/23 15:42 98.5 F 85 23 136/86 98 04/06/23 12:26 97.9 F 75 20 148/82 96 04/06/23 10:25 92 18 146/88 95 04/06/23 08:21 98 04/06/23 07:30 91 18 146/88 99 FiO2 04/07/23 00:00 40 04/06/23 20:00 40 04/06/23 16:45 40 04/06/23 15:53 40 04/06/23 15:42 04/06/23 12:26 04/06/23 10:25 04/06/23 08:21 60 04/06/23 07:30 Intake and Output 04/06/23 04/06/23 04/07/23 14:59 22:59 06:59 Intake Total 0 Output Total 400 Balance 0 -400 Intake: Oral 0 Output: Urine 400 Other: Voiding Method Urinal Urinal # Voids 1 Weight 72.575 kg GENERAL EXAM: Alert, 77-year-old white male, comfortable in no apparent distress. HEAD: Normocephalic and atraumatic EYES: Normal reaction of pupils, equal size. NOSE: Clear with pink turbinates. THROAT: No erythema or exudates. NECK: No masses, no JVD. Tracheostomy clean and dry . CHEST: No chest wall deformity. LUNGS: Equal air entry with diffuse wheezes and rhonchi. Trach collar at 40%. CVS: S1 and S2 normal with no audible murmur, regular rhythm. No extra heart sounds ABDOMEN: No hepatosplenomegaly, active bowel sounds, no guarding or rigidity. PEG tube. SPINE: No scoliosis or deformity SKIN: No rashes CENTRAL NERVOUS SYSTEM: No focal deficits, tone is normal in all 4 extremities. EXTREMITIES: There is no peripheral edema, clubbing, or cyanosis. Peripheral pulses are intact. Results - Laboratory Findings CBC and BMP: 04/06/23 06:45 04/06/23 06:45 PT/INR, D-dimer PT 11.8 sec (10.0-12.5) 04/05/23 19:22 INR 1.1 (<1.2) 04/05/23 19:22 Abnormal lab findings: Abnormal Labs 04/05/23 04/05/23 04/05/23 19:22 19:22 21:08 RBC 4.12 L Hgb Hct 38.4 L Lymphocytes # 0.6 L Sodium 129 L Chloride 97 L BUN 23 H Creatinine 0.65 L Glucose 184 H Calcium 8.2 L Albumin Procalcitonin SARS-CoV-2 (PCR) Detected A 04/06/23 04/06/23 04/06/23 06:45 06:45 06:45 RBC 3.75 L Hgb 12.3 L Hct 35.1 L Lymphocytes # 0.3 L Sodium 132 L Chloride BUN 21 H Creatinine Glucose 113 H Calcium 8.3 L Albumin 3.4 L Procalcitonin 0.13 H SARS-CoV-2 (PCR) - Diagnostic Findings Chest x-ray: image reviewed Assessment and Plan Assessment: Acute hypoxemic respiratory failure, secondary to acute COVID infection and acute purulent tracheobronchitis. Chest x-ray did not show any acute infiltrates or evidence of pneumonia. There is a chronic right upper lobe opacity with associated volume loss correlating with the patient's history of lung CA Small hemoptysis, likely secondary to above, patient is chronically anticoagulated on Eliquis. History of right upper lobe lung cancer status post SBRT History of laryngeal cancer, status post laryngectomy with voice prosthesis History of PEG tube insertion Hypovolemic hyponatremia, improving Atrial fibrillation with rapid ventricular rate, converted to normal sinus rhythm, anticoagulated on Eliquis Hyperlipidemia Hypothyroidism Remote history of tobacco use Plan: Patient's medications, labs, chest x-ray reviewed Continue supplemental/humidified oxygen Continue Decadron Encourage pulmonary toileting Hemoptysis has lessened, and Eliquis has been restarted Collect sputum culture Empiric antibiotics have been continued Procalcitonin level mildly elevated at 0.13 We will continue to follow, and further recommendations are forthcoming I have personally seen and examined the patient, performed the documentation and the assessment and plan as written. Number of minutes spent on the visit:20 Time with Patient: Greater than 30
[2023-04-07] MEDS: IPRATROPIUM-ALBUTEROL 3 ML NEB INHALATION SCH (04:02)
--- NOTE | 2023-04-07 11:15 | CA ---
Transthoracic Echo Report Name: Werner Dawkins Age: 77 Gender: M : 1945 Exam Date: 04/07/2023 08:59 Exam Location: [facility] Ht (in): 58 Wt (lb): 160 Ordering Physician: Elaine Balderas Attending/Referring Phys: [id number], Andrey Software Engineer Developer Emily Heath RDCS Procedure CPT: Indications: LVF +Covid Cardiac Hx: Technical Quality: Fair Contrast 1: Total Dose (mL): Contrast 2: Total Dose (mL): MEASUREMENTS (Male / Female) Normal Values 2D ECHO LV Diastolic Diameter PLAX 4.4 cm 4.2 - 5.9 / 3.9 - 5.3 cm LV Systolic Diameter PLAX 2.3 cm IVS Diastolic Thickness 0.9 cm 0.6 - 1.0 / 0.6 - 0.9 cm LVPW Diastolic Thickness 0.6 cm 0.6 - 1.0 / 0.6 - 0.9 cm LV Relative Wall Thickness 0.3 Aortic Root Diameter 3.1 cm LA Systolic Diameter LX 3.1 cm 3.0 - 4.0 / 2.7 - 3.8 cm DOPPLER AV Peak Velocity 82.7 cm/s AV Peak Gradient 2.7 mmHg AV Mean Velocity 55.8 cm/s AV Mean Gradient 1.3 mmHg AV Velocity Time Integral 18.8 cm LVOT Peak Velocity 67.8 cm/s LVOT Peak Gradient 1.8 mmHg LVOT Velocity Time Integral 19.8 cm Mitral E Point Velocity 92.8 cm/s Mitral A Point Velocity 86.4 cm/s Mitral E to A Ratio 1.1 MV Deceleration Time 174.5 ms PV Peak Velocity 65.7 cm/s PV Peak Gradient 1.7 mmHg FINDINGS Left Ventricle Left ventricular ejection fraction is estimated at 55-60%. Right Ventricle Right ventricle not well visualized. Right Atrium Right atrium not well visualized. Left Atrium Normal left atrial size. Mitral Valve Trace mitral regurgitation. Mild mitral annular calcification. Aortic Valve Aortic valve not well visualized. Tricuspid Valve Mild tricuspid regurgitation. Pulmonic Valve Pulmonic valve not well visualized. Pericardium Normal pericardium. Aorta Normal size aortic root and proximal ascending aorta. CONCLUSIONS Left ventricular ejection fraction 55-60% Mild mitral annular calcification Trace mitral regurgitation Mild tricuspid regurgitation No pericardial effusion Previewed by: Dr. Anup Bach DO (Electronically Signed) Final Date: 07 April 2023 11:14
--- NOTE | 2023-04-07 13:31 | P.PN ---
Subjective Progress Note Date: 04/07/23 Consult reason: atrial fibrillation (rvr) History of present illness: History of present illness: This is a 77-year-old male patient of Dr. 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 We have been asked to evaluate the patient for atrial fibrillation with RVR. Patient states he came into the hospital due to shortness of breath is unable to get air out of his lungs. Shortness of breath has been going on for the past 3 days with cough and greenish sputum production. No fever or chills. No chest pain. Patient is seen today in the emergency center waiting for a bed on the cardiac stepdown unit. He has been started on Cardizem bolus of 50 mg followed by drip at 5 mg/ h. EKG #1 atrial fibrillation with ventricular rate of 153, #2 sinus rhythm at 90 bpm Chest x-ray: COPD with chronic pleural-parenchymal scarring and obesity at the medial right upper lung lobe no acute process. WBC 6.9, hemoglobin 12.3, platelet count 187. Sodium 132, potassium 3.5, BUN 21 creatinine 0.69. Blood sugar 113. Liver function test are normal. Troponin negative x 1. proBNP 2950. Influenza A, influenza B, RSV not detected. COVID- 19 detected. Home cardiac medications: Eliquis 5 mg twice daily, Lopressor 25 mg twice daily and also on levothyroxine 100 mcg daily. 04/07 Patient is seen today in follow-up on the cardiac stepdown unit. Patient remains in sinus rhythm. Yesterday, Cardizem drip was discontinued and patient was started on amiodarone 2 mg twice daily. Blood pressure 131/62, heart rate is 69, pulse ox 97% on trach collar with FiO2 28. TSH 3.0. Limited echoca rdiogram reveals EF 55 to 60%. Mild mitral annular calcification. Trace mitral regurgitation. Mild tricuspid regurgitation. No pericardial effusion. Physical examination: Gen: This is a 77-year-old male. He appears to be in no acute distress. VS: reviewed HEENT: Head is atraumatic, normocephalic. Pupils equal, round. Sclerae is anicteric. NECK: Supple. No JVD. Status post tracheotomy with trach collar in place. LUNGS: Clear to auscultation. No wheezes or rhonchi. No intercostal retractions. HEART: Regular rate and rhythm. No murmur. ABDOMEN: Soft No tenderness. EXTREMITIES: No pedal edema. No calf tenderness. NEUROLOGICAL: Patient is awake, alert and oriented x3. Assessment: Chronic atrial fibrillation with RVR, currently sinus rhythm COVID-19 infection Hypertension Hyperlipidemia Hypothyroidism History of throat cancer Plan: Resume patient's home cardiac medications Continue patient on amiodarone 200 mg twice daily for 4 weeks and then daily Continue monitoring closely overnight and plan for discharge home tomorrow. Nurse practitioner note has been reviewed, I agree with documented findings and plan of care. Patient was seen and examined. Objective - Vital Signs Vital signs: Vital Signs Temp 98.5 F 04/07/23 08:00 Pulse 76 04/07/23 08:00 Resp 20 04/07/23 08:00 BP 134/67 04/07/23 08:00 Pulse Ox 96 04/07/23 09:49 FiO2 40 04/07/23 09:49 Intake & Output 04/06/23 04/07/23 04/07/23 18:59 06:59 18:59 Intake Total 0 Output Total 700 Balance -700 Weight 72.575 kg Intake: Oral 0 Output: Urine 700 Other: Voiding Method Urinal Urinal Toilet # Voids 1 - Labs CBC & Chem 7: 04/06/23 06:45 04/06/23 06:45 Labs: Abnormal Lab Results - Last 24 Hours (Table) 04/06/23 Range/Units 06:45 Procalcitonin 0.13 H (0.02-0.09) ng/mL Microbiology - Last 24 Hours (Table) 04/05/23 21:35 Blood Culture - Preliminary Blood
--- NOTE | 2023-04-07 15:16 | P.PN ---
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 Reports he has short of breath for the past 3 days with cough productive of greenish phlegm. Denies experiencing chest discomfort, fever, chills, nausea, vomiting, abdominal pain, diarrhea. Chest x-ray in the emergency room was consistent with COPD without evidence of acute changes. EKG revealed A. fib with RVR at 153 bpm as reviewed by me. Laboratory evaluation was remarkable for Caronavirus PCR testing positive. Upon arrival at the ED, the patient's temp was 101.0F with pulse 124, respiratory rate 30, SpO2 98% on trach collar with 10 L/min O2. Started on Azithromycin and Zosyn for empiric treatment of PNA. Started on Decadron for COVID treatment. Started on Cardizem drip for A-Fib RVR which has since been discontinued. 04/06 Patient was seen and examined. He reports thick output from his tracheostomy with blood. Breathing improved. CBC Hg 12.3 Hct 35.1. CMP Na 132, BUN 21, glu 113, Ca 8.3, alb 3.1. Procal 0.13. TSH 3. CXR shows chronic changes with no acute infiltrate. 04/07 Patient was seen and examined. Hemoptysis has decreased. Feeling well. Heart rate of 69. Legionella Ag negative. Maintained on Azithromycin and Zosyn. Cardiology recommends monitoring for one more day. Physical examination: Vital signs reviewed General: non toxic, no distress, appears at stated age, normal weight Derm: no unusual rashes/lesions, warm Head: atraumatic, normocephalic, symmetric Eyes: EOMI, no lid lag, anicteric sclera ENT: Nose and ears atraumatic Neck: No cervical lymphadenopathy, trachea midline, supple, s/p tracheostomy with trach collar in place Cardiovascular: irregularly irregular, no murmur, positive dorsalis pedis pulse bilateral, no edema Lungs: Decreased breath sounds bilateral, no rhonchi, no rales, no accessory muscle use Ext: muscle strength 5 out of 5 in all 4 extremities grossly, no gross muscle atrophy, no contractures, Neuro: no gross focal neuro deficits Psych: Alert, oriented, appropriate affect Based on my assessment of this patient, this patient meets a high complexity level of care. Patient has an acute diagnosis of sepsis secondary to COVID-19 with possible tracheobronchitis complicated with atrial fibrillation with RVR poses a threat to life or bodily function. Afib with RVR: Cardiology consulted, started on Amiodarone 200 mg PO BID. Continue Metoprolol 25 mg PO BID. Eliquis 5 mg PO BID for AC. Sepsis secondary to COVID-19 infection: Decadron 6 mg PO QD. Pro-leandro negative. Patient with thick secretions from the tracheostomy with blood. Continue azithromycin 500 mg IV daily and Zosyn 3.375 g IV 3 times a day for now. Pulmonary consult. Tracheobronchitis: Antibiotics as above. Transition to PO tomorrow. Acute hypoxic respiratory failure Hypochloremic hyponatremia: Improving with IV hydration. Continue normal saline at 100 mL/h. Chronic conditions: HTN, HLD, Hypothyroidism, s/p laryngectomy with tracheostomy CODE STATUS: FULL CODE. DVT Prophylaxis: Eliquis. GI Prophylaxis: Designated medical POA if patient is not able to make medical decisions for themselves: I have reviewed the following network security consultant notes: Cardiology note. I have reviewed the results of the following tests: I have ordered the following tests: I have discussed the care of this patient with the following independent historian: I have independently interpreted the following test below: I have discussed the management of this patient with the following physician: Objective - Vital Signs Vital signs: Vital Signs Temp 98.1 F 04/07/23 11:34 Pulse 69 04/07/23 11:34 Resp 18 04/07/23 11:34 BP 131/62 04/07/23 11:34 Pulse Ox 97 04/07/23 11:34 FiO2 28 04/07/23 11:34 Intake & Output 04/06/23 04/07/23 04/07/23 18:59 06:59 18:59 Intake Total 0 Output Total 700 Balance -700 Weight 72.575 kg Intake: Oral 0 Output: Urine 700 Other: Voiding Method Urinal Urinal Toilet # Voids 1 - Labs CBC & Chem 7: 04/06/23 06:45 04/06/23 06:45 Labs: Microbiology - Last 24 Hours (Table) 04/05/23 21:50 Blood Culture - Preliminary Blood 04/05/23 21:35 Blood Culture - Preliminary Blood
--- NOTE | 2023-04-08 10:54 | P.DS ---
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 Reports he has short of breath for the past 3 days with cough productive of greenish phlegm. Denies experiencing chest discomfort, fever, chills, nausea, vomiting, abdominal pain, diarrhea. Chest x-ray in the emergency room was consistent with COPD without evidence of acute changes. EKG revealed A. fib with RVR at 153 bpm as reviewed by me. Laboratory evaluation was remarkable for Caronavirus PCR testing positive. Upon arrival at the ED, the patient's temp was 101.0F with pulse 124, respiratory rate 30, SpO2 98% on trach collar with 10 L/min O2. He has thick blood tinged purulent discharge from his tracheostomy site. Started on Azithromycin and Zosyn for empiric treatment of PNA. Pulmonary consulted. Pro-leandro 0.13 with CXR no definitive PNA. Prescribed Ceftin on discharge to complete total 7 days for tracheobronchitis. Started on Decadron for COVID treatment. Prescribed on discharge to complete a total of 10 days. Started on Cardizem drip for A-Fib RVR which has since been discontinued. Cardiology consulted, continued on Metoprolol and started on Amiodarone. 04/08 Patient was seen and examined. Feeling well. Rate controlled. Plans for discharge home on Amiodarone, Decadron and Ceftin. Physical examination: Vital signs reviewed General: non toxic, no distress, appears at stated age, normal weight Derm: no unusual rashes/lesions, warm Head: atraumatic, normocephalic, symmetric Eyes: EOMI, no lid lag, anicteric sclera ENT: Nose and ears atraumatic Neck: No cervical lymphadenopathy, trachea midline, supple, s/p tracheostomy with trach collar in place Cardiovascular: irregularly irregular, no murmur Lungs: Decreased breath sounds bilateral, no rhonchi, no rales, no accessory muscle use Ext: muscle strength 5 out of 5 in all 4 extremities grossly, no gross muscle atrophy, no contractures, Neuro: no gross focal neuro deficits Psych: Alert, oriented, appropriate affect Discharge Diagnosis: Afib with RVR Sepsis secondary to COVID-19 infection Tracheobronchitis Acute hypoxic respiratory failure Hypochloremic hyponatremia Chronic conditions: HTN, HLD, Hypothyroidism, s/p laryngectomy with tracheostomy This complex discharge took 35 minutes to complete. Patient Condition at Discharge: Stable Plan - Discharge Summary Discharge Rx Participant: No New Discharge Prescriptions: New dexAMETHasone [Decadron] 6 mg PO DAILY #7 tablet Amiodarone [Cordarone] 200 mg PO BID #60 tab Cefdinir 300 mg PO Q12HR #8 cap Continue Simvastatin [Zocor] 20 mg PO HS Folic Acid 1 mg PO DAILY Sodium Chloride 0.65% Nasal [Deep Sea (Saline)] 2 spr NASAL BID Apixaban [Eliquis] 5 mg PO BID Thiamine [Vitamin B-1] 100 mg PO DAILY Levothyroxine Sodium [Synthroid] 100 mcg PO DAILY Cholecalciferol [Vitamin D3 (10 Mcg = 400 Iu)] 10 mcg PO DAILY Chlorhexidine Gluconate [Periogard] 15 ml PO HS Terazosin HCl 10 mg PO HS Metoprolol Tartrate [Lopressor] 25 mg PO BID Lactose-Reduced Food/Fiber [Jevity 1.2 Leandro Liquid] 250 ml PO TID@0800,1300,1700 Discharge Medication List Folic Acid 1 mg PO DAILY 02/03/16 [History] Simvastatin [Zocor] 20 mg PO HS 02/03/16 [History] Apixaban [Eliquis] 5 mg PO BID 01/09/22 [History] Sodium Chloride 0.65% Nasal [Deep Sea (Saline)] 2 spr NASAL BID 01/09/22 [History] Chlorhexidine Gluconate [Periogard] 15 ml PO HS 04/05/23 [History] Cholecalciferol [Vitamin D3 (10 Mcg = 400 Iu)] 10 mcg PO DAILY 04/05/23 [History] Lactose-Reduced Food/Fiber [Jevity 1.2 Leandro Liquid] 250 ml PO TID@0800,1300,1700 04/05/23 [History] Levothyroxine Sodium [Synthroid] 100 mcg PO DAILY 04/05/23 [History] Metoprolol Tartrate [Lopressor] 25 mg PO BID 04/05/23 [History] Terazosin HCl 10 mg PO HS 04/05/23 [History] Thiamine [Vitamin B-1] 100 mg PO DAILY 04/05/23 [History] Amiodarone [Cordarone] 200 mg PO BID #60 tab 04/08/23 [Rx] Cefdinir 300 mg PO Q12HR #8 cap 04/08/23 [Rx] dexAMETHasone [Decadron] 6 mg PO DAILY #7 tablet 04/08/23 [Rx] Follow up Appointment(s)/Referral(s): [facility] [Primary Care Provider] - 1-2 days Hi Lindsay MD [STAFF PHYSICIAN] - 1 Week Discharge Disposition: HOME SELF-CARE
[2023-04-08] MEDS: methylPREDNISolone SOD SUCCI 125 MG/2 ML VIAL IV SCH (13:25)
--- NOTE | 2023-04-08 13:25 | P.PN ---
Subjective Progress Note Date: 04/08/23 Consult reason: atrial fibrillation (rvr) History of present illness: History of present illness: This is a 77-year-old male patient of Dr. 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 We have been asked to evaluate the patient for atrial fibrillation with RVR. Patient states he came into the hospital due to shortness of breath is unable to get air out of his lungs. Shortness of breath has been going on for the past 3 days with cough and greenish sputum production. No fever or chills. No chest pain. Patient is seen today in the emergency center waiting for a bed on the cardiac stepdown unit. He has been started on Cardizem bolus of 50 mg followed by drip at 5 mg/ h. EKG #1 atrial fibrillation with ventricular rate of 153, #2 sinus rhythm at 90 bpm Chest x-ray: COPD with chronic pleural-parenchymal scarring and obesity at the medial right upper lung lobe no acute process. WBC 6.9, hemoglobin 12.3, platelet count 187. Sodium 132, potassium 3.5, BUN 21 creatinine 0.69. Blood sugar 113. Liver function test are normal. Troponin negative x 1. proBNP 2950. Influenza A, influenza B, RSV not detected. COVID- 19 detected. Home cardiac medications: Eliquis 5 mg twice daily, Lopressor 25 mg twice daily and also on levothyroxine 100 mcg daily. 04/07 Patient is seen today in follow-up on the cardiac stepdown unit. Patient remains in sinus rhythm. Yesterday, Cardizem drip was discontinued and patient was started on amiodarone 2 mg twice daily. Blood pressure 131/62, heart rate is 69, pulse ox 97% on trach collar with FiO2 28. TSH 3.0. Limited echoca rdiogram reveals EF 55 to 60%. Mild mitral annular calcification. Trace mitral regurgitation. Mild tricuspid regurgitation. No pericardial effusion. 04/08 Patient remains in a sinus rhythm and maintained on amiodarone 200 mg twice daily as well as Eliquis. Pulmonary medicine has added and IV Solu-Medrol today. Patient was expecting discharge home today but has some increased congestion. Physical examination: Gen: This is a 77-year-old male. He appears to be in no acute distress. VS: reviewed HEENT: Head is atraumatic, normocephalic. Pupils equal, round. Sclerae is anicteric. NECK: Supple. No JVD. Status post tracheotomy with trach collar in place. LUNGS: Bilateral wheezing. No intercostal retractions. HEART: Regular rate and rhythm. No murmur. ABDOMEN: Soft No tenderness. EXTREMITIES: No pedal edema. No calf tenderness. NEUROLOGICAL: Patient is awake, alert and oriented x3. Assessment: Chronic atrial fibrillation with RVR, currently sinus rhythm COVID-19 infection Hypertension Hyperlipidemia Hypothyroidism History of throat cancer Plan: Resume patient's home cardiac medications Continue patient on amiodarone 200 mg twice daily for 4 weeks and then daily At the time of discharge, patient will follow-up in the office with Dr. Dereck Lr in 3 weeks. Nurse practitioner note has been reviewed, I agree with documented findings and plan of care. Patient was seen and examined. Objective - Vital Signs Vital signs: Vital Signs Temp 98.5 F 04/08/23 08:00 Pulse 72 04/08/23 08:00 Resp 18 04/08/23 08:00 BP 147/89 04/08/23 08:00 Pulse Ox 95 04/08/23 08:00 FiO2 28 04/08/23 08:00 Intake & Output 04/07/23 04/08/23 04/08/23 18:59 06:59 18:59 Intake Total 1188 Output Total 200 150 Balance -200 1188 -150 Weight 72.575 kg Intake: Tube Feeding 588 Other 600 Output: Urine 200 Other 150 Other: Voiding Method Toilet Toilet - Labs CBC & Chem 7: 04/06/23 06:45 04/06/23 06:45 Labs: Microbiology - Last 24 Hours (Table) 04/05/23 21:35 Blood Culture - Preliminary Blood 04/05/23 21:50 Blood Culture - Preliminary Blood
--- NOTE | 2023-04-08 14:52 | P.PN ---
Subjective Progress Note Date: 04/08/23 Principal diagnosis: Acute COVID-19 infection with acute tracheobronchitis and history of laryngeal cancer Patient is a 77-year-old white male with past medical history significant for laryngeal cancer status post laryngectomy and voice prosthesis, PEG tube, right upper lobe lung cancer status SBRT, paroxysmal atrial fibrillation anticoagulated on Eliquis, hyperlipidemia, hypertension, hypothyroidism, and remote tobacco use. He follows with a PCP at the [facility]. Patient complains of ongoing worsening shortness of breath that started approximately 3 days ago. He has had an associated cough with increased sputum purulence and some hemoptysis mixed in. He has been febrile. He has been fatigued. He did test positive for COVID on arrival. He is vaccinated and boosted for COVID. He lives at [facility]. Chest x-ray did not show any acute infiltrates or evidence of pneumonia. There is a chronic right upper lobe opacity with associated volume loss correlating with the patient's history of lung CA. Most recent CBC from yesterday: WBC count of 6.9, hemoglobin 12.3, hematocrit 35.1, platelets 187. BMP from yesterday: Sodium 132, potassium 3.5, chloride 100, serum bicarb 23, BUN 21, creatinine 0.69, glucose 113. LFTs not elevated. Troponin less than 0.012. Troponin is 2950. Procalcitonin level 0.13. He has been started on empiric antibiotics including azithromycin and Zosyn. He is currently sitting up in bed, with a trach collar 40%, in no acute distress. He continues to have thick tenacious and purulent sputum from his tracheostomy. He speaks with a voice prosthesis. He is currently afebrile. Of note, the patient was also in A-fib RVR on arrival. He has since converted to normal sinus rhythm. Vital signs are stable. Patient was reevaluated today on 04/08/2023, feeling better, however on examination he has scattered rhonchi and wheezes. No fever no chills no hemoptysis and no chest pain. No labs were done today. Considering his wheezing I recommended methylprednisolone 60 mg IV push every 6 hours considering his COVID-19 infection, cannot use updrafts, and with his laryngeal cancer cannot use inhalers Objective - Vital Signs Vital signs: Vital Signs Temp 98.5 F 04/08/23 08:00 Pulse 72 04/08/23 08:00 Resp 18 04/08/23 08:00 BP 147/89 04/08/23 08:00 Pulse Ox 95 04/08/23 08:00 FiO2 28 04/08/23 08:00 Intake & Output 04/07/23 04/08/23 04/08/23 18:59 06:59 18:59 Intake Total 1188 Output Total 200 150 Balance -200 1188 -150 Weight 72.575 kg Intake: Tube Feeding 588 Other 600 Output: Urine 200 Other 150 Other: Voiding Method Toilet Toilet - Exam Gen: This is a 77-year-old male. He appears to be in no acute distress. HEENT: Head is atraumatic, normocephalic. Pupils equal, round. Sclerae is anicteric. NECK: Supple. No JVD. Status post tracheotomy, stoma is noted, patient uses a device to verbalize. LUNGS: Wheezing noted bilaterally HEART: Regular rate and rhythm. No murmur. ABDOMEN: Soft No tenderness. EXTREMITIES: No pedal edema. No calf tenderness. NEUROLOGICAL: Patient is awake, alert and oriented x3. no gross focal deficit Theatric: Normal mood affect and no mental status examination Skin: No rash - Labs CBC & Chem 7: 04/06/23 06:45 04/06/23 06:45 Labs: Microbiology - Last 24 Hours (Table) 04/05/23 21:50 Blood Culture - Preliminary Blood 04/05/23 21:35 Blood Culture - Preliminary Blood Assessment and Plan Assessment: Impression: Acute COVID-19 infection with tracheobronchitis and reactive bronchospasm Chronic atrial fibrillation with RVR on this admission Benign essential hypertension History of laryngeal cancer Hypothyroidism History of right upper lobe cancer status post SBRT History of PEG tube insertion Dyslipidemia Hypothyroidism Remote smoking history Recommendation: Continue present treatment plan Continue COVID-19 cocktail Patient will benefit from higher dose of steroids, I am recommending methylprednisolone 60 mg IV push every 6 hours Cardiology is addressing in the meantime his cardiac issues and his atrial fibrillation. Will continue to follow Time with Patient: Less than 30
--- NOTE | 2023-04-09 09:26 | P.PN ---
Subjective HISTORY OF PRESENT ILLNESS: This is a 77-year-old male patient of Dr. Dereck Lr with past medical history of hypertension, dyslipidemia, chronic atrial fibrillation on Eliquis, hypothyroidism and also history of throat cancer status post laryngectomy and tracheostomy with voicebox placement. We have been asked to evaluate the patient for atrial fibrillation with RVR. Patient states he came into the hospital due to shortness of breath is unable to get air out of his lungs. Shortness of breath has been going on for the past 3 days with cough and greenish sputum production. No fever or chills. No chest pain. Patient is seen today in the emergency center waiting for a bed on the cardiac stepdown unit. He has been started on Cardizem bolus of 50 mg followed by drip at 5 mg/h. EKG #1 atrial fibrillation with ventricular rate of 153, #2 sinus rhythm at 90 bpm Chest x-ray: COPD with chronic pleural-parenchymal scarring and obesity at the medial right upper lung lobe no acute process. WBC 6.9, hemoglobin 12.3, platelet count 187. Sodium 132, potassium 3.5, BUN 21 creatinine 0.69. Blood sugar 113. Liver function test are normal. Troponin negative x 1. proBNP 2950. Influenza A, influenza B, RSV not detected. COVID- 19 detected. Home cardiac medications: Eliquis 5 mg twice daily, Lopressor 25 mg twice daily and also on levothyroxine 100 mcg daily. 04/07 Patient is seen today in follow-up on the cardiac stepdown unit. Patient remains in sinus rhythm. Yesterday, Cardizem drip was discontinued and patient was started on amiodarone 2 mg twice daily. Blood pressure 131/62, heart rate is 69, pulse ox 97% on trach collar with FiO2 28. TSH 3.0. Limited echocardiogram reveals EF 55 to 60%. Mild mitral annular calcification. Trace mitral regurgitation. Mild tricuspid regurgitation. No pericardial effusion. 04/08 Patient remains in a sinus rhythm and maintained on amiodarone 200 mg twice daily as well as Eliquis. Pulmonary medicine has added and IV Solu-Medrol today. Patient was expecting discharge home today but has some increased congestion. 04/09/2023 Patient examined this morning at the bedside. Patient currently denies chest pain or pressure. He denies shortness of breath. Patient is not on telemetry monitoring but appears to be in sinus mechanism upon auscultation. Vital signs are stable. PHYSICAL EXAM: VITAL SIGNS: Reviewed. GENERAL: Well-developed in no acute distress. NECK: Supple. No JVD or thyromegaly. Tracheotomy in place. LUNGS: Respirations even and unlabored. Lungs essentially clear to auscultation bilaterally, diminished. HEART: Regular rate and rhythm. S1 and S2 heard. EXTREMITIES: Normal range of motion. No clubbing or cyanosis. Peripheral pulses intact. No lower extremity edema ASSESSMENT: Paroxysmal atrial fibrillation with RVR, currently sinus rhythm COVID-19 infection Hypertension Hyperlipidemia Hypothyroidism History of throat cancer History of tracheostomy PLAN: Continue current cardiac medications Continue current dose of amiodarone 200 mg twice a day for 4 weeks then decrease to 200 mg daily Patient is stable for discharge from a cardiac standpoint We will follow on an as-needed basis. Please call with questions or concerns. Nurse practitioner note has been reviewed by physician. Signing provider agrees with the documented findings, assessment, and plan of care documented by ANTENNA MACHINE OPERATOR as a scribe. Objective - Vital Signs Vital signs: Vital Signs Temp 98.4 F 04/09/23 07:20 Pulse 72 04/09/23 07:20 Resp 17 04/09/23 07:20 BP 161/74 04/09/23 07:20 Pulse Ox 93 L 04/09/23 07:20 FiO2 28 04/09/23 08:32 Intake & Output 04/08/23 04/09/23 04/09/23 18:59 06:59 18:59 Output Total 150 1050 Balance -150 -1050 Output: Urine 1050 Other 150 Other: Voiding Method Toilet # Voids 1 # Bowel Movements 1 - Labs CBC & Chem 7: 04/06/23 06:45 04/06/23 06:45 Labs: Microbiology - Last 24 Hours (Table) 04/05/23 21:35 Blood Culture - Preliminary Blood 04/07/23 09:51 Gram Stain - Preliminary Sputum 04/05/23 21:50 Blood Culture - Preliminary Blood
--- NOTE | 2023-04-09 10:50 | P.PN ---
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 Reports he has short of breath for the past 3 days with cough productive of greenish phlegm. Denies experiencing chest discomfort, fever, chills, nausea, vomiting, abdominal pain, diarrhea. Chest x-ray in the emergency room was consistent with COPD without evidence of acute changes. EKG revealed A. fib with RVR at 153 bpm as reviewed by me. Laboratory evaluation was remarkable for Caronavirus PCR testing positive. Upon arrival at the ED, the patient's temp was 101.0F with pulse 124, respiratory rate 30, SpO2 98% on trach collar with 10 L/min O2. Started on Azithromycin and Zosyn for empiric treatment of PNA. Started on Decadron for COVID treatment. Started on Cardizem drip for A-Fib RVR which has since been discontinued. 04/06 Patient was seen and examined. He reports thick output from his tracheostomy with blood. Breathing improved. CBC Hg 12.3 Hct 35.1. CMP Na 132, BUN 21, glu 113, Ca 8.3, alb 3.1. Procal 0.13. TSH 3. CXR shows chronic changes with no acute infiltrate. 04/07 Patient was seen and examined. Hemoptysis has decreased. Feeling well. Heart rate of 69. Legionella Ag negative. Maintained on Azithromycin and Zosyn. Cardiology recommends monitoring for one more day. 04/08 Patient was seen and examined. Generally feeling well. He is worried about the secretions from the tracheostomy. Discharge held as patient continued wheezing. Decadron switched to SoluMedrol by Pulmonary. 04/09 Patient was seen and examined. He reports no compliants today. Secretions have lessened. Continued wheezing. Sputum Cx PMN, yeast, GPC, GNB. Echo EF 55- 60% with trade MR, mild TR. Physical examination: Vital signs reviewed General: non toxic, no distress, appears at stated age, normal weight Derm: no unusual rashes/lesions, warm Head: atraumatic, normocephalic, symmetric Eyes: EOMI, no lid lag, anicteric sclera ENT: Nose and ears atraumatic Neck: No cervical lymphadenopathy, trachea midline, supple, s/p tracheostomy with trach collar in place Cardiovascular: irregularly irregular, no murmur, positive dorsalis pedis pulse bilateral, no edema Lungs: Expiratory wheezing bilateral, no rhonchi, no rales, no accessory muscle use Ext: muscle strength 5 out of 5 in all 4 extremities grossly, no gross muscle atrophy, no contractures, Neuro: no gross focal neuro deficits Psych: Alert, oriented, appropriate affect Based on my assessment of this patient, this patient meets a high complexity level of care. Patient has an acute diagnosis of sepsis secondary to COVID-19 with possible tracheobronchitis complicated with atrial fibrillation with RVR poses a threat to life or bodily function. Acute hypoxic respiratory failure Sepsis secondary to COVID-19 infection: SoluMedrol 60 mg IV Q6H. Pro-leandro negative. Patient with thick secretions from the tracheostomy with blood. Azithromycin 500 mg IV daily x 3 days completed. Continue Zosyn 3.375 g IV 3 times a day while waiting for sputum Cx to finalize. Pulmonary on board. Tracheobronchitis: Antibiotics as above. Afib with RVR: Cardiology consulted, started on Amiodarone 200 mg PO BID. Continue Metoprolol 25 mg PO BID. Eliquis 5 mg PO BID for AC. Hypochloremic hyponatremia: DC IVF and encourage hydration by mouth. Chronic conditions: HTN, HLD, Hypothyroidism, s/p laryngectomy with tracheostomy CODE STATUS: FULL CODE. DVT Prophylaxis: Eliquis. GI Prophylaxis: Designated medical POA if patient is not able to make medical decisions for themselves: I have reviewed the following talent acquisition consultant notes: Cardiology, Pulmonary note. I have reviewed the results of the following tests: Echo. Sputum Cx. I have ordered the following tests: CXR. CBC. BMP I have discussed the care of this patient with the following independent historian: I have independently interpreted the following test below: I have discussed the management of this patient with the following physician: Objective - Vital Signs Vital signs: Vital Signs Temp 98.4 F 04/09/23 07:20 Pulse 72 04/09/23 07:20 Resp 17 04/09/23 07:20 BP 161/74 04/09/23 07:20 Pulse Ox 93 L 04/09/23 07:20 FiO2 28 04/09/23 08:32 Intake & Output 04/08/23 04/09/23 04/09/23 18:59 06:59 18:59 Output Total 150 1050 Balance -150 -1050 Output: Urine 1050 Other 150 Other: Voiding Method Toilet # Voids 1 # Bowel Movements 1 - Labs CBC & Chem 7: 04/06/23 06:45 04/06/23 06:45 Labs: Microbiology - Last 24 Hours (Table) 04/07/23 09:51 Gram Stain - Preliminary Sputum Sputum Culture - Preliminary Presumptive Staph aureus Gram Neg Bacilli 04/05/23 21:35 Blood Culture - Preliminary Blood 04/05/23 21:50 Blood Culture - Preliminary Blood
--- NOTE | 2023-04-09 14:04 | P.PN ---
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 He follows with a PCP at the [facility]. Patient complains of ongoing worsening shortness of breath that started approximately 3 days ago. He has had an associated cough with increased sputum purulence and some hemoptysis mixed in. He has been febrile. He has been fatigued. He did test positive for COVID on arrival. He is vaccinated and boosted for COVID. He lives at [facility]. Chest x-ray did not show any acute infiltrates or evidence of pneumonia. There is a chronic right upper lobe opacity with associated volume loss correlating with the patient's history of lung CA. Most recent CBC from yesterday: WBC count of 6.9, hemoglobin 12.3, hematocrit 35.1, platelets 187. BMP from yesterday: Sodium 132, potassium 3.5, chloride 100, serum bicarb 23, BUN 21, creatinine 0.69, glucose 113. LFTs not elevated. Troponin less than 0.012. Troponin is 2950. Procalcitonin level 0.13. He has been started on empiric antibiotics including azithromycin and Zo syn. He is currently sitting up in bed, with a trach collar 40%, in no acute distress. He continues to have thick tenacious and purulent sputum from his tracheostomy. He speaks with a voice prosthesis. He is currently afebrile. Of note, the patient was also in A-fib RVR on arrival. He has since converted to normal sinus rhythm. Vital signs are stable. Patient was reevaluated today on 04/08/2023, feeling better, however on examination he has scattered rhonchi and wheezes. No fever no chills no hemoptysis and no chest pain. No labs were done today. Considering his wheezing I recommended methylprednisolone 60 mg IV push every 6 hours considering his COVID-19 infection, cannot use updrafts, and with his laryngeal cancer cannot use inhalers The patient is seen today April 09, 2023 in follow-up on the regular medical floor. He is currently sitting up at the bedside. Awake and alert in no acute distress. He is feeling better today. He is maintaining good O2 saturations in the 90s on 28% FiO2 via trach collar. He is afebrile. Hemodynamically stable. His sputum cultures positive for presumptive Staph aureus and gram-negative bacilli. He is currently on antibiotics in the form of Zosyn. Continued on Solu-Medrol. Anticoagulated with Eliquis. He is being nourished via his PEG tube with Jevity 1.5 at 49 mL/h which is goal. Objective - Vital Signs Vital signs: Vital Signs Temp 98.4 F 04/09/23 07:20 Pulse 72 04/09/23 08:10 Resp 17 04/09/23 08:10 BP 161/74 04/09/23 07:20 Pulse Ox 93 L 04/09/23 07:20 FiO2 28 04/09/23 08:32 Intake & Output 04/08/23 04/09/23 04/09/23 18:59 06:59 18:59 Output Total 150 1050 300 Balance -150 -1050 -300 Output: Urine 1050 300 Other 150 Other: Voiding Method Toilet Toilet # Voids 1 # Bowel Movements 1 1 - Exam Gen: This is a 77-year-old pleasant male. On 28% FiO2 via trach collar. He appears to be in no acute distress. HEENT: Head is atraumatic, normocephalic. Pupils equal, round. Sclerae is anicteric. NECK: Supple. No JVD. Status post tracheotomy, stoma is noted, patient uses a device to verbalize. LUNGS: Wheezing noted bilaterally HEART: Regular rate and rhythm. No murmur. ABDOMEN: Soft No tenderness. PEG tube exit site clean and dry. EXTREMITIES: No pedal edema. No calf tenderness. NEUROLOGICAL: Patient is awake, alert and oriented x3. no gross focal deficit Theatric: Normal mood affect and no mental status examination Skin: No rash - Labs CBC & Chem 7: 04/06/23 06:45 04/06/23 06:45 Labs: Microbiology - Last 24 Hours (Table) 04/05/23 21:50 Blood Culture - Preliminary Blood 04/07/23 09:51 Gram Stain - Preliminary Sputum Sputum Culture - Preliminary Presumptive Staph aureus Gram Neg Bacilli 04/05/23 21:35 Blood Culture - Preliminary Blood Assessment and Plan Assessment: Acute COVID-19 infection with tracheobronchitis and reactive bronchospasm. Sputum culture positive for presumptive Staph aureus and gram-negative bacilli. Currently on Zosyn Chronic atrial fibrillation with RVR on this admission Benign essential hypertension History of laryngeal cancer Hypothyroidism History of right upper lobe cancer status post SBRT History of PEG tube insertion Dyslipidemia Hypothyroidism Remote smoking history Plan: The patient was seen and evaluated Medications and microbiology reviewed Currently on Zosyn Continued on steroids Remains on 28% FiO2 via trach collar Possible discharge in the a.m. We will continue to follow I have personally seen and examined the patient, performed the documentation and the assessment and plan as written. Number of minutes spent on the visit: 10.
[2023-04-10 06:18] LABS: HCT 35.9 % (39.0-53.0); HGB 12.6 gm/dL (13.0-17.5); MCHC 35.1 g/dL (31.0-37.0); MCV 91.2 fL (80.0-100.0); Mean Platelet Volume 8.2; Platelet Count 174 k/uL (150-450); RBC 3.94 m/uL (4.30-5.90); RDW 11.8 % (11.5-15.5); WBC 9.1 k/uL (3.8-10.6)
[2023-04-10 06:27] LABS: African American GFR (CKD) >90 (>60 ml/min/1.73 sqM); Anion Gap 5 mmol/L; Blood Urea Nitrogen 18 mg/dL (9-20); Calcium 8.1 mg/dL (8.4-10.2); Carbon Dioxide 32 mmol/L (22-30); Chloride 95 mmol/L (98-107); Glucose 119 mg/dL (74-99); Non-African American GFR(CKD) >90 (>60 ml/min/1.73 sqM); Sodium 132 mmol/L (137-145)
--- NOTE | 2023-04-10 07:15 | XR ---
EXAMINATION TYPE: XR chest 1V DATE OF EXAM: 04/10/2023 6:07 AM CLINICAL INDICATION:Male, 77 years old with history of Hypoxia; [facility] COMPARISON: Chest radiographs from 04/06/2023 TECHNIQUE: XR chest 1V Frontal view of the chest. FINDINGS: Lungs/Pleura: Prominent interstitial lung markings with scarring in the right lung apex are seen with with flattening of the diaphragm and increased lucency of the lung apices. No evidence of focal cons olidation, pneumothorax or pleural effusion. Pulmonary vascularity: Unremarkable. Heart/mediastinum: Cardiomediastinal silhouette is unremarkable. Musculoskeletal: No acute osseous pathology. IMPRESSION: Similar COPD changes with superimposed scarring in the right lung apex. No significant change from .
[2023-04-10] MEDS: POTASSIUM CHLORIDE 10 MEQ in WATER FOR INJECTION 1 100ML.BAG IVPB SCH (08:47)
--- NOTE | 2023-04-10 11:56 | P.DS ---
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 Reports he has short of breath for the past 3 days with cough productive of greenish phlegm. Denies experiencing chest discomfort, fever, chills, nausea, vomiting, abdominal pain, diarrhea. Chest x-ray in the emergency room was consistent with COPD without evidence of acute changes. EKG revealed A. fib with RVR at 153 bpm as reviewed by me. Laboratory evaluation was remarkable for Caronavirus PCR testing positive. Upon arrival at the ED, the patient's temp was 101.0F with pulse 124, respiratory rate 30, SpO2 98% on trach collar with 10 L/min O2. He has thick blood tinged purulent discharge from his tracheostomy site. Started on Azithromycin and Zosyn for empiric treatment of PNA. Pulmonary consulted. Pro-leandro 0.13 with CXR no definitive PNA. Legionella Ag negative. Sputum Cx PMN, yeast, GPC, GNB. Prescribed Ceftin on discharge to complete total 7 days for tracheobronchitis. Started on Decadron for COVID treatment. Decadron switched to SoluMedrol for expiratory wheezing by Pulmonology. Prescribed Decadron on discharge to complete a total of 10 days. Started on Cardizem drip for A-Fib RVR which has since been discontinued. Echo EF 55-60% with trade MR, mild TR. Cardiology consulted, continued on Metoprolol and started on Amiodarone. 04/10 Patient was seen and examined. Feeling well. Rate controlled. His potassium is low at 3 which will be replaced prior to discharge. Discussed with Dr. Lindsay and Mariaelena, cleared for discharge from a Pulmonary standpoint. Plans for discharge home on Amiodarone, Decadron and Ceftin. Physical examination: Vital signs reviewed General: non toxic, no distress, appears at stated age, normal weight Derm: no unusual rashes/lesions, warm Head: atraumatic, normocephalic, symmetric Eyes: EOMI, no lid lag, anicteric sclera ENT: Nose and ears atraumatic Neck: No cervical lymphadenopathy, trachea midline, supple, s/p tracheostomy with trach collar in place Cardiovascular: irregularly irregular, no murmur Lungs: Decreased breath sounds bilateral, no rhonchi, no rales, no accessory muscle use Ext: muscle strength 5 out of 5 in all 4 extremities grossly, no gross muscle atrophy, no contractures, Neuro: no gross focal neuro deficits Psych: Alert, oriented, appropriate affect Discharge Diagnosis: Afib with RVR Sepsis secondary to COVID-19 infection Tracheobronchitis with reactive bronchospasm Acute hypoxic respiratory failure Hypokalemia Hypochloremic hyponatremia Chronic conditions: HTN, HLD, Hypothyroidism, s/p laryngectomy with tracheostomy This complex discharge took 35 minutes to complete. Patient Condition at Discharge: Stable Plan - Discharge Summary Discharge Rx Participant: No New Discharge Prescriptions: New cefUROXime axetiL [Ceftin] 500 mg PO BID 2 Days #4 tab Amiodarone [Cordarone] 200 mg PO BID #60 tab dexAMETHasone [Decadron] 6 mg PO DAILY #5 tablet Pantoprazole [Protonix] 40 mg PO DAILY #30 tab Continue Simvastatin [Zocor] 20 mg PO HS Folic Acid 1 mg PO DAILY Sodium Chloride 0.65% Nasal [Deep Sea (Saline)] 2 spr NASAL BID Apixaban [Eliquis] 5 mg PO BID Thiamine [Vitamin B-1] 100 mg PO DAILY Levothyroxine Sodium [Synthroid] 100 mcg PO DAILY Cholecalciferol [Vitamin D3 (10 Mcg = 400 Iu)] 10 mcg PO DAILY Chlorhexidine Gluconate [Periogard] 15 ml PO HS Terazosin HCl 10 mg PO HS Metoprolol Tartrate [Lopressor] 25 mg PO BID Lactose-Reduced Food/Fiber [Jevity 1.2 Leandro Liquid] 250 ml PO TID@0800,1300,1700 Discharge Medication List Folic Acid 1 mg PO DAILY 02/03/16 [History] Simvastatin [Zocor] 20 mg PO HS 02/03/16 [History] Apixaban [Eliquis] 5 mg PO BID 01/09/22 [History] Sodium Chloride 0.65% Nasal [Deep Sea (Saline)] 2 spr NASAL BID 01/09/22 [History] Chlorhexidine Gluconate [Periogard] 15 ml PO HS 04/05/23 [History] Cholecalciferol [Vitamin D3 (10 Mcg = 400 Iu)] 10 mcg PO DAILY 04/05/23 [History] Lactose-Reduced Food/Fiber [Jevity 1.2 Leandro Liquid] 250 ml PO TID@0800,1300,1700 04/05/23 [History] Levothyroxine Sodium [Synthroid] 100 mcg PO DAILY 04/05/23 [History] Metoprolol Tartrate [Lopressor] 25 mg PO BID 04/05/23 [History] Terazosin HCl 10 mg PO HS 04/05/23 [History] Thiamine [Vitamin B-1] 100 mg PO DAILY 04/05/23 [History] Amiodarone [Cordarone] 200 mg PO BID #60 tab 04/10/23 [Rx] Pantoprazole [Protonix] 40 mg PO DAILY #30 tab 04/10/23 [Rx] cefUROXime axetiL [Ceftin] 500 mg PO BID 2 Days #4 tab 04/10/23 [Rx] dexAMETHasone [Decadron] 6 mg PO DAILY #5 tablet 04/10/23 [Rx] Follow up Appointment(s)/Referral(s): Hi Lindsay MD [STAFF PHYSICIAN] - 04/22/23 2:00 pm Shiva Lr MD [STAFF PHYSICIAN] - 3 Weeks (Office is closed at time of discharge. Please call for follow-up appointment.) [facility],Clinic [Primary Care Provider] - 04/14/23 1:00 pm Ambulatory/Diagnostic Orders: Basic Metabolic Panel [LAB.AMB] Time Frame: 3 Days, Location: None Selected Patient Instructions/Handouts: Viral Pneumonia ([facility]), COVID-19 (Coronavirus Disease 2019) ([facility]) Discharge Disposition: HOME SELF-CARE
--- NOTE | 2023-04-10 12:20 | P.PN ---
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 He follows with a PCP at the [facility]. Patient complains of ongoing worsening shortness of breath that started approximately 3 days ago. He has had an associated cough with increased sputum purulence and some hemoptysis mixed in. He has been febrile. He has been fatigued. He did test positive for COVID on arrival. He is vaccinated and boosted for COVID. He lives at [facility]. Chest x-ray did not show any acute infiltrates or evidence of pneumonia. There is a chronic right upper lobe opacity with associated volume loss correlating with the patient's history of lung CA. Most recent CBC from yesterday: WBC count of 6.9, hemoglobin 12.3, hematocrit 35.1, platelets 187. BMP from yesterday: Sodium 132, potassium 3.5, chloride 100, serum bicarb 23, BUN 21, creatinine 0.69, glucose 113. LFTs not elevated. Troponin less than 0.012. Troponin is 2950. Procalcitonin level 0.13. He has been started on empiric antibiotics including azithromycin and Zo syn. He is currently sitting up in bed, with a trach collar 40%, in no acute distress. He continues to have thick tenacious and purulent sputum from his tracheostomy. He speaks with a voice prosthesis. He is currently afebrile. Of note, the patient was also in A-fib RVR on arrival. He has since converted to normal sinus rhythm. Vital signs are stable. Patient was reevaluated today on 04/08/2023, feeling better, however on examination he has scattered rhonchi and wheezes. No fever no chills no hemoptysis and no chest pain. No labs were done today. Considering his wheezing I recommended methylprednisolone 60 mg IV push every 6 hours considering his COVID-19 infection, cannot use updrafts, and with his laryngeal cancer cannot use inhalers The patient is seen today April 09, 2023 in follow-up on the regular medical floor. He is currently sitting up at the bedside. Awake and alert in no acute distress. He is feeling better today. He is maintaining good O2 saturations in the 90s on 28% FiO2 via trach collar. He is afebrile. Hemodynamically stable. His sputum cultures positive for presumptive Staph aureus and gram-negative bacilli. He is currently on antibiotics in the form of Zosyn. Continued on Solu-Medrol. Anticoagulated with Eliquis. He is being nourished via his PEG tube with Jevity 1.5 at 49 mL/h which is goal. The patient is seen today April 10, 2023 in follow-up on the regular medical floor. He is awake and alert in no acute distress. Sitting up at the bedside. Denies any worsening shortness of breath, cough or congestion. Continues to maintain good O2 saturations in the 90s on 28% FiO2 via trach collar. He is afebrile. Hemodynamically stable. Sputum culture was positive for Staphylococcus aureus and gram-negative bacilli. Cultures revealed no growth. White count 9.1. Hemoglobin 12.6. Platelets 174. Sodium 132. Potassium 3.0. Bicarb 32. BUN 18. Creatinine 0.62. Remains on Solu-Medrol. Antibiotics in the form of Zosyn. Anticoagulated with Eliquis. Objective - Vital Signs Vital signs: Vital Signs Temp 98.2 F 04/10/23 07:28 Pulse 65 04/10/23 08:30 Resp 19 04/10/23 08:30 BP 160/71 04/10/23 07:28 Pulse Ox 96 04/10/23 07:28 FiO2 28 04/10/23 08:38 Intake & Output 04/09/23 04/10/23 04/10/23 18:59 06:59 18:59 Output Total 900 550 Balance -900 -550 Weight 74.2 kg Output: Urine 900 550 Other: Voiding Method Toilet Toilet # Bowel Movements 1 - Exam Gen: This is a 77-year-old pleasant male. Sitting up at the bedside. On 28% FiO2 via trach collar. In no acute distress. HEENT: Head is atraumatic, normocephalic. Pupils equal, round. Sclerae is ani cteric. NECK: Supple. No JVD. Status post tracheotomy, stoma is noted, patient uses a device to verbalize. LUNGS: Wheezing noted bilaterally HEART: Regular rate and rhythm. No murmur. ABDOMEN: Soft No tenderness. PEG tube exit site clean and dry. EXTREMITIES: No pedal edema. No calf tenderness. NEUROLOGICAL: Patient is awake, alert and oriented x3. no gross focal deficit Theatric: Normal mood affect and no mental status examination Skin: No rash - Labs CBC & Chem 7: 04/10/23 06:00 04/10/23 06:00 Labs: Abnormal Lab Results - Last 24 Hours (Table) 04/10/23 04/10/23 Range/Units 06:00 06:00 RBC 3.94 L (4.30-5.90) m/uL Hgb 12.6 L (13.0-17.5) gm/dL Hct 35.9 L (39.0-53.0) % Sodium 132 L (137-145) mmol/L Potassium 3.0 L (3.5-5.1) mmol/L Chloride 95 L (98-107) mmol/L Carbon Dioxide 32 H (22-30) mmol/L Creatinine 0.62 L (0.66-1.25) mg/dL Glucose 119 H (74-99) mg/dL Calcium 8.1 L (8.4-10.2) mg/dL Microbiology - Last 24 Hours (Table) 04/07/23 09:51 Gram Stain - Preliminary Sputum Sputum Culture - Preliminary Staphylococcus aureus Gram Neg Bacilli 04/05/23 21:50 Blood Culture - Preliminary Blood Assessment and Plan Assessment: Acute COVID-19 infection with tracheobronchitis and reactive bronchospasm. Sputum culture positive for presumptive Staph aureus and gram-negative bacilli. Currently on Zosyn Chronic atrial fibrillation with RVR on this admission Benign essential hypertension History of laryngeal cancer Hypothyroidism History of right upper lobe cancer status post SBRT History of PEG tube insertion Dyslipidemia Hypothyroidism Remote smoking history Plan: The patient was seen and evaluated Medications, chest x-ray and labs reviewed Currently on Zosyn Continued on steroids Anticoagulated with Eliquis Remains on 28% FiO2 via trach collar Plan is for home with home care at discharge This patient was seen independently by the pulmonary nurse practitioner addressing pulmonary issues I have personally seen and examined the patient, performed the documentation and the assessment and plan as written. Number of minutes spent on the visit: 24.
[2023-04-11 08:36] VITALS: RESP 18
[2023-04-11 12:24] LABS: African American GFR (CKD) >90 (>60 ml/min/1.73 sqM); Anion Gap 5 mmol/L; Blood Urea Nitrogen 22 mg/dL (9-20); Calcium 8.1 mg/dL (8.4-10.2); Carbon Dioxide 34 mmol/L (22-30); Chloride 92 mmol/L (98-107); Glucose 180 mg/dL (74-99); Non-African American GFR(CKD) >90 (>60 ml/min/1.73 sqM); Sodium 131 mmol/L (137-145)
--- NOTE | 2023-04-11 12:37 | P.DS ---
Providers Date of admission: 04/05/23 21:20 Expected date of discharge: 04/11/23 Attending physician: Celio Rosado MD Consults: 04/06/23 16:38 Consult Physician Routine Consulting Provider: Hi Lindsay Consult Reason/Comments: covid, hemoptysis Do you want consulting provider notified?: Yes Primary care physician: 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 Reports he has short of breath for the past 3 days with cough productive of greenish phlegm. Denies experiencing chest discomfort, fever, chills, nausea, vomiting, abdominal pain, diarrhea. Chest x-ray in the emergency room was consistent with COPD without evidence of acute changes. EKG revealed A. fib with RVR at 153 bpm as reviewed by me. Laboratory evaluation was remarkable for Caronavirus PCR testing positive. Upon arrival at the ED, the patient's temp was 101.0F with pulse 124, respiratory rate 30, SpO2 98% on trach collar with 10 L/min O2. He has thick blood tinged purulent discharge from his tracheostomy site. Started on Azithromycin and Zosyn for empiric treatment of PNA. Pulmonary consulted. Pro-leandro 0.13 with CXR no definitive PNA. Legionella Ag negative. Sputum Cx PMN, yeast, GPC, GNB. Prescribed Ceftin on discharge to complete total 7 days for tracheobronchitis. Started on Decadron for COVID treatment. Decadron switched to SoluMedrol for expiratory wheezing by Pulmonology. Prescribed Decadron on discharge to complete a total of 10 days. Started on Cardizem drip for A-Fib RVR which has since been discontinued. Echo EF 55-60% with trade MR, mild TR. Cardiology consulted, continued on Metoprolol and started on Amiodarone. 04/10 Patient was seen and examined. Feeling well. Rate controlled. His potassium is low at 3 which will be replaced prior to discharge. Discussed with Dr. Lindsay and Mariaelena, cleared for discharge from a Pulmonary standpoint. Plans for discharge home on Amiodarone, Decadron and Ceftin. 04/11 Patient was seen and examined. No complaints. Unsure why discharge was held yesterday by nursing yesterday. Discussed with case management, home health to be set up through the [place]. Prescriptions for Amiodarone, Decadron and Ceftin sent to [facility] to be delivered to bedside prior to discharge. His potassium is low at 3 today which will be replaced prior to discharge. Plans to repeat BMP in 3 days to be followed up with PCP. Physical examination: Vital signs reviewed General: non toxic, no distress, appears at stated age, normal weight Derm: no unusual rashes/lesions, warm Head: atraumatic, normocephalic, symmetric Eyes: EOMI, no lid lag, anicteric sclera ENT: Nose and ears atraumatic Neck: No cervical lymphadenopathy, trachea midline, supple, tracheostomy with trach collar in place Cardiovascular: irregularly irregular, no murmur Lungs: Decreased breath sounds bilateral, no rhonchi, no rales, no accessory muscle use Ext: muscle strength 5 out of 5 in all 4 extremities grossly, no gross muscle atrophy, no contractures, Neuro: no gross focal neuro deficits Psych: Alert, oriented, appropriate affect Discharge Diagnosis: Afib with RVR Sepsis secondary to COVID-19 infection Tracheobronchitis with reactive bronchospasm Acute hypoxic respiratory failure Hypokalemia Hypochloremic hyponatremia Chronic conditions: HTN, HLD, Hypothyroidism, s/p laryngectomy with tracheostomy This complex discharge took 35 minutes to complete. Patient Condition at Discharge: Stable Plan - Discharge Summary Discharge Rx Participant: No New Discharge Prescriptions: New cefUROXime axetiL [Ceftin] 500 mg PO BID 2 Days #4 tab Amiodarone [Cordarone] 200 mg PO BID #60 tab dexAMETHasone [Decadron] 6 mg PO DAILY #5 tablet Pantoprazole [Protonix] 40 mg PO DAILY #30 tab Continue Simvastatin [Zocor] 20 mg PO HS Folic Acid 1 mg PO DAILY Sodium Chloride 0.65% Nasal [Deep Sea (Saline)] 2 spr NASAL BID Apixaban [Eliquis] 5 mg PO BID Thiamine [Vitamin B-1] 100 mg PO DAILY Levothyroxine Sodium [Synthroid] 100 mcg PO DAILY Cholecalciferol [Vitamin D3 (10 Mcg = 400 Iu)] 10 mcg PO DAILY Chlorhexidine Gluconate [Periogard] 15 ml PO HS Terazosin HCl 10 mg PO HS Metoprolol Tartrate [Lopressor] 25 mg PO BID Lactose-Reduced Food/Fiber [Jevity 1.2 Leandro Liquid] 250 ml PO TID@0800,1300,1700 Discharge Medication List Folic Acid 1 mg PO DAILY 02/03/16 [History] Simvastatin [Zocor] 20 mg PO HS 02/03/16 [History] Apixaban [Eliquis] 5 mg PO BID 01/09/22 [History] Sodium Chloride 0.65% Nasal [Deep Sea (Saline)] 2 spr NASAL BID 01/09/22 [History] Chlorhexidine Gluconate [Periogard] 15 ml PO HS 04/05/23 [History] Cholecalciferol [Vitamin D3 (10 Mcg = 400 Iu)] 10 mcg PO DAILY 04/05/23 [History] Lactose-Reduced Food/Fiber [Jevity 1.2 Leandro Liquid] 250 ml PO TID@0800,1300,1700 04/05/23 [History] Levothyroxine Sodium [Synthroid] 100 mcg PO DAILY 04/05/23 [History] Metoprolol Tartrate [Lopressor] 25 mg PO BID 04/05/23 [History] Terazosin HCl 10 mg PO HS 04/05/23 [History] Thiamine [Vitamin B-1] 100 mg PO DAILY 04/05/23 [History] Amiodarone [Cordarone] 200 mg PO BID #60 tab 04/10/23 [Rx] Pantoprazole [Protonix] 40 mg PO DAILY #30 tab 04/10/23 [Rx] cefUROXime axetiL [Ceftin] 500 mg PO BID 2 Days #4 tab 04/10/23 [Rx] dexAMETHasone [Decadron] 6 mg PO DAILY #5 tablet 04/10/23 [Rx] Follow up Appointment(s)/Referral(s): Hi Lindsay MD [STAFF PHYSICIAN] - 04/22/23 2:00 pm Shiva Lr MD [STAFF PHYSICIAN] - 3 Weeks (Office is closed at time of discharge. Please call for follow-up appointment.) [facility],Clinic [Primary Care Provider] - 04/14/23 1:00 pm Ambulatory/Diagnostic Orders: Basic Metabolic Panel [LAB.AMB] Time Frame: 3 Days, Location: None Selected Patient Instructions/Handouts: Viral Pneumonia (DC), COVID-19 (Coronavirus Disease 2019) (DC) Discharge Disposition: HOME SELF-CARE
[2023-04-11] MEDS: POTASSIUM CHLORIDE 10 MEQ in WATER FOR INJECTION 1 100ML.BAG IVPB SCH (12:56)
[2023-04-11] MEDS: POTASSIUM CHLORIDE ER 20 MEQ TAB.ER PO STA (14:29)
[2023-04-11 15:16] VITALS: BP 176/78; PULSE 60; TEMP 98.4
[2023-04-11 16:16] VITALS: BMI 24.6
== END 2023-04-11 19:15 | disposition home or self-care (01) | DRG 871 ==
LOC: EC 19:05 → 3SCARD 21:20 → 4SSUR 04-08 23:21
PROVIDERS: ADMIT Internal Medicine; ATTEND Internal Medicine
DX: A41.89 Other specified sepsis (principal); J12.82 Pneumonia due to coronavirus disease 2019; J96.01 Acute respiratory failure with hypoxia; U07.1 COVID-19; E87.1 Hypo-osmolality and hyponatremia; I48.20 Chronic atrial fibrillation, unspecified; J44.1 Chronic obstructive pulmonary disease with (acute) exacerbation; J44.0 Chronic obstructive pulmonary disease with (acute) lower respiratory infection; R04.2 Hemoptysis; E78.5 Hyperlipidemia, unspecified; I48.0 Paroxysmal atrial fibrillation; Z79.01 Long term (current) use of anticoagulants; Z93.1 Gastrostomy status; Z87.891 Personal history of nicotine dependence; Z85.819 Personal history of malignant neoplasm of unspecified site of lip, oral cavity, and pharynx; Z85.118 Personal history of other malignant neoplasm of bronchus and lung; J20.9 Acute bronchitis, unspecified; Z79.890 Hormone replacement therapy; E87.8 Other disorders of electrolyte and fluid balance, not elsewhere classified; E87.6 Hypokalemia; E66.9 Obesity, unspecified; J20.8 Acute bronchitis due to other specified organisms; E03.9 Hypothyroidism, unspecified; E86.1 Hypovolemia; F41.9 Anxiety disorder, unspecified; I10 Essential (primary) hypertension; Z79.899 Other long term (current) drug therapy; Z85.21 Personal history of malignant neoplasm of larynx; Z92.3 Personal history of irradiation; I08.1 Rheumatic disorders of both mitral and tricuspid valves; Z98.42 Cataract extraction status, left eye; Z98.41 Cataract extraction status, right eye; Z68.24 Body mass index [BMI] 24.0-24.9, adult
CPT/HCPCS: 36415; 71045; 80048; 80053; 83605; 83735; 83880; 84100; 84145; 84443; 84484; 85025; 85027; 85610; 85730; 87040; 87070; 87077; 87186; 87205; 87449; 87636; 93005; 93308; 94640; 94760; 96365; 96366; 96367; 96368; 96375; 99291

== ENCOUNTER 2023-12-01 08:28 | Emergency (ER) | payer OTHER ==
--- NOTE | 2023-12-01 10:12 | XR ---
EXAMINATION TYPE: XR abdomen 1V DATE OF EXAM: 12/01/2023 COMPARISON: NONE HISTORY: feeding tube placement TECHNIQUE: Single supine KUB image of the abdomen is obtained FINDINGS: Feeding tube injection was performed. Contrast is noted within the stomach without evidence for leak. IMPRESSION: 1. Feeding tube is appropriately placed. [facility], , 12/01/2023 10:10 AM
--- NOTE | 2023-12-01 10:17 | ED ---
General Adult HPI - General Stated complaint: Feeding Tube Leak Time Seen by Provider: 12/01/23 08:55 Source: patient Mode of arrival: ambulatory Limitations: language barrier - History of Present Illness Initial comments: 78-year-old male presents emergency department reporting that his feeding tube is leaking. Patient has had the feeding tube for an extensive period of time. He states that the At the end of his tube is leaking. He would like his tube replaced. No bleeding. He is tolerating his tube feeds. No redness or swelling. No other alleviating, precipitating or modifying factors - Related Data Home Medications Medication Instructions Recorded Confirmed Folic Acid 1 mg PO DAILY 02/03/16 04/05/23 Simvastatin [Zocor] 20 mg PO HS 02/03/16 04/05/23 Apixaban [Eliquis] 5 mg PO BID 01/09/22 04/05/23 Sodium Chloride 0.65% Nasal [Deep 2 spr NASAL BID 01/09/22 04/05/23 Sea (Saline)] Chlorhexidine Gluconate [Periogard] 15 ml PO HS 04/05/23 04/05/23 Cholecalciferol [Vitamin D3 (10 10 mcg PO DAILY 04/05/23 04/05/23 Mcg = 400 Iu)] Lactose-Reduced Food/Fiber [Jevity 250 ml PO TID@0800,1300,1700 04/05/23 04/05/23 1.2 Ever Liquid] Levothyroxine Sodium [Synthroid] 100 mcg PO DAILY 04/05/23 04/05/23 Metoprolol Tartrate [Lopressor] 25 mg PO BID 04/05/23 04/05/23 Terazosin HCl 10 mg PO HS 04/05/23 04/05/23 Thiamine [Vitamin B-1] 100 mg PO DAILY 04/05/23 04/05/23 Previous Rx's Medication Instructions Recorded Amiodarone [Cordarone] 200 mg PO BID #60 tab 04/10/23 Pantoprazole [Protonix] 40 mg PO DAILY #30 tab 04/10/23 cefUROXime axetiL [Ceftin] 500 mg PO BID 2 Days #4 tab 04/10/23 dexAMETHasone [Decadron] 6 mg PO DAILY #5 tablet 04/10/23 Allergies Allergy/AdvReac Type Severity Reaction Status Date / Time No Known Allergies Allergy Verified 04/05/23 22:20 Review of Systems ROS Statement: Those systems with pertinent positive or pertinent negative responses have been documented in the HPI. ROS Other: All systems not noted in ROS Statement are negative. Past Medical History Past Medical History: Atrial Fibrillation, Cancer, Eye Disorder, Hyperlipidemia, Hypertension, Prostate Disorder, Thyroid Disorder Additional Past Medical History / Comment(s): artificial voice box, throat ca, lung ca, hx of radiation, occasional SOB, cataract both eyes History of Any Multi-Drug Resistant Organisms: None Reported Additional Past Surgical History / Comment(s): total laryngectomy, bx of lung nodule, BL cataract, PEG tube placement last week at [facility] because food got stuck in his throat pt had EGD done told him he had a blockage in his throat and he needed a PEG Pt has a protatic tube in his trachy prior. peg placed 2022. colonoscopy,egd Past Anesthesia/Blood Transfusion Reactions: No Reported Reaction Additional Past Anesthesia/Blood Transfusion Reaction / Comment(s): has had laryngectomy Past Psychological History: No Psychological Hx Reported Smoking Status: Former smoker - Past Family History Mother Family Medical History: Cancer Additional Family Medical History / Comment(s): lung General Exam Limitations: language barrier General appearance: alert, in no apparent distress Head exam: Present: atraumatic, normocephalic, normal inspection Eye exam: Present: normal appearance, PERRL, EOMI. Absent: scleral icterus, conjunctival injection, periorbital swelling ENT exam: Present: normal exam, mucous membranes moist Neck exam: Present: normal inspection. Absent: tenderness, meningismus, lymphadenopathy Respiratory exam: Present: normal lung sounds bilaterally. Absent: respiratory distress, wheezes, rales, rhonchi, stridor Cardiovascular Exam: Present: regular rate, normal rhythm, normal heart sounds. Absent: systolic murmur, diastolic murmur, rubs, gallop, clicks GI/Abdominal exam: Present: soft, normal bowel sounds. Absent: distended, tenderness, guarding, rebound, rigid Extremities exam: Present: normal inspection, full ROM, normal capillary refill. Absent: tenderness, pedal edema, joint swelling, calf tenderness Back exam: Present: normal inspection Neurological exam: Present: alert, oriented X3, CN II-XII intact Psychiatric exam: Present: normal affect, normal mood Skin exam: Present: warm, dry, intact, normal color. Absent: rash Course Vital Signs 12/01/23 12/01/23 12/01/23 08:52 09:45 10:31 Temperature 98 F 97.9 F Pulse Rate 49 L 48 L 51 L Respiratory 18 17 18 Rate Blood Pressure 139/64 172/71 168/86 O2 Sat by Pulse 97 96 95 Oximetry 12/01/23 10:55 Temperature 98.0 F Pulse Rate 52 L Respiratory 19 Rate Blood Pressure 180/68 O2 Sat by Pulse 98 Oximetry Procedures - Feeding Tube Replacement Reason for Replacement: not functioning/damaged Initial Tube Inserted: greater than 2 weeks Type of Tube: gastrostomy Use of Tube: medications and feeding Insertion Site Prior to Procedure: clean Tube Used for Reinsertion: Bard Indonesian Tube Size (F): 20 Balloon Size (mls): 10 Verification of Placement: KUB, gastrografin injection Tube Secured by: G-tube attachment device Patient Tolerated Procedure: well, no complications Medical Decision Making - Medical Decision Making Was pt. sent in by a medical professional or institution (, PA, CLOTHES DRIER ASSEMBLER, urgent care, hospital, or [facility]...) When possible be specific @ -No Did you speak to anyone other than the patient for history (EMS, parent, family, police, friend...)? What history was obtained from this source @ -No Did you review nursing and triage notes (agree or disagree)? Why? @ -yes Were old charts reviewed (outside hosp., previous admission, EMS record, old EKG, old radiological studies, urgent care reports/EKG's, [facility] records)? Report findings @ -I reviewed previous ED visit where patient had feeding tube changed in March of this year Differential Diagnosis (chest pain, altered mental status, abdominal pain women, abdominal pain men, vaginal bleeding, weakness, fever, dyspnea, syncope, headache, dizziness, GI bleed, back pain, seizure, CVA, palpatations, mental health, musculoskeletal)? @ -Mathias dislodgment, Mathias malfunction EKG interpreted by me (3pts min.). @ -Not done X-rays interpreted by me (1pt min.). @ -Yes and demonstrates appropriate placement of tube CT interpreted by me (1pt min.). @ -None done U/S interpreted by me (1pt. min.). @ -None done What testing was considered but not performed or refused? (CT, X-rays, U/S, labs)? Why? @ -None What meds were considered but not given or refused? Why? @ -None Did you discuss the management of the patient with other professionals (professionals i.e. , PA, CLOTHES DRIER ASSEMBLER, lab, RT, psych nurse, social media content manager, community support professional, teacher, parachute/combatant diver officer, immigration case manager)? Give summary @ -No Was smoking cessation discussed for >3mins.? @ -No Was critical care preformed (if so, how long)? @ -No Were there social determinants of health that impacted care today? How? (Homelessness, low income, unemployed, alcoholism, drug addiction, transportation, low edu. Level, literacy, decrease access to med. care, retirement, rehab)? @ -No Was there de-escalation of care discussed even if they declined (Discuss DNR or withdrawal of care, Hospice)? DNR status @ -No What co-morbidities impacted this encounter? (DM, HTN, Smoking, COPD, CAD, Cancer, CVA, ARF, Chemo, Hep., AIDS, mental health diagnosis, sleep apnea, morbid obesity)? @ -Head and neck cancer Was patient admitted / discharged? Hospital course, mention meds given and route, prescriptions, significant lab abnormalities, going to OR and other pertinent info. @ -Upon arrival patient seen and evaluated in room 17. Thorough history and physical exam was performed. Patient does have a 22 Indonesian. I did search the emergency department as well as call up to endoscopy and they only have a 20 Indonesian. This is discussed with the patient. He was agreeable to the 20 Indonesian tube. Tube was replaced. Confirmation was obtained from x-ray. Patient will be discharged home and instructed to follow-up with his surgeon to see if he can possibly obtain a 22 Indonesian tube for him. Patient was agreeable to this and was discharged in stable condition Undiagnosed new problem with uncertain prognosis? @ -No Drug Therapy requiring intensive monitoring for toxicity (Heparin, Nitro, Insulin, Cardizem)? @ -No Were any procedures done? @ -Replacement of feeding tube Diagnosis/symptom? @ -Leaking feeding tube with replacement Acute, or Chronic, or Acute on Chronic? @Acute Uncomplicated (without systemic symptoms) or Complicated (systemic symptoms)? @ -Uncomplicated Side effects of treatment? @ -No Exacerbation, Progression, or Severe Exacerbation? @ -No Poses a threat to life or bodily function? How? (Chest pain, USA, MS, pneumonia, PE, COPD, DKA, ARF, appy, cholecystitis, CVA, Diverticulitis, Homicidal, Suicidal, threat to staff... and all critical care pts) @ -No Disposition Clinical Impression: Feeding tube dysfunction Disposition: HOME SELF-CARE Condition: Stable Instructions (If sedation given, give patient instructions): PEG Tube Insertion (DC) Additional Instructions: Please follow-up with your surgeon for further feeding tube sizes. Return for any new or worsening symptoms Is patient prescribed a controlled substance at d/c from ED?: No Referrals: [facility],Clinic [Primary Care Provider] - 1-2 days Time of Disposition: 10:17
[2023-12-01 10:57] VITALS: BP 180/68; PULSE 52; RESP 19; TEMP 98
== END 2023-12-01 10:58 | disposition home or self-care (01) ==
LOC: EC 08:28
CPT/HCPCS: 43762; 74018; 99283

== ENCOUNTER → 2023-12-23 | Outpatient (CLI) | payer OTHER ==
[2023-12-23 12:59] LABS: African American GFR (CKD) >90 (>60 ml/min/1.73 sqM); Blood Urea Nitrogen 22 mg/dL (9-20); Non-African American GFR(CKD) 85 (>60 ml/min/1.73 sqM)
--- NOTE | 2023-12-23 14:45 | CT ---
EXAMINATION TYPE: CT chest w con CT DLP: 398.0 mGycm, Automated exposure control for dose reduction was used. DATE OF EXAM: 12/23/2023 2:09 PM COMPARISON: CT chest 01/25/2022, 09/14/2021 CLINICAL INDICATION:Male, 78 years old with history of C34.90 LUNG CX; PHH, hx of lung ca TECHNIQUE: Multiple axial images were obtained through the chest following the administration of 100 cc of Isovue 300. . Coronal and sagittal reformats reviewed. FINDINGS: LUNGS/ PLEURA: No pleural effusion or pneumothorax. Posttreatment changes of the right perihilar megha on redemonstrated with increased soft tissue thickening measuring up to 1.9 cm in thickness, previous ly 1.2 cm (series 4, image 19). Increased size of medial right upper lobe 3.5 x 3.1 cm solid pulmonar y mass (series 3, image 14). Previously measured 1.3 x 1.5 cm. Mild centrilobular emphysematous mike es. Similar scarring along the left apex. AIRWAY: Post surgical changes of the trachea redemonstrated.. HEART: Size within normal limits. No pericardial effusion. Coronary artery calcifications. MEDIASTINUM: New precarinal 1.1 cm enlarged lymph node (series 3, image 25). VASCULATURE: No aortic aneurysm. As described calcification of the aorta and its branches. Focal sev ere stenosis of the proximal right common carotid artery demonstrated. MUSCULOSKELETAL: No acute osseous abnormalities. Remote fractures of the right ribs. No new aggressiv e osseous lesions. Increased thoracic kyphosis. Moderate multilevel degenerative disc disease. SOFT TISSUES/LYMPH NODES: Unremarkable. LOWER NECK: No significant findings. UPPER ABDOMEN: A few hepatic cysts with largest measured 1.7 cm. PEG tube identified in stable positi on. Tiny hiatal hernia. IMPRESSION: 1. Posttreatment changes in the right upper lung with increasing size of medial left upper lung mass measuring 3.5 cm. Additional thickening of the right perihilar scarring/consolidation region. Finding s are highly concerning for lung cancer recurrence. Further evaluation with PET/CT is recommended. 2. Enlarged new precarinal lymph node measuring up to 1.1 cm. Suspicious for metastasis. [facility], , 12/23/2023 2:43 PM
== END | disposition home or self-care (01) ==
LOC: RADCTMAIN 12:14
PROVIDERS: ATTEND Internal Medicine
DX: C34.90 Malignant neoplasm of unspecified part of unspecified bronchus or lung (principal); R91.8 Other nonspecific abnormal finding of lung field; R59.9 Enlarged lymph nodes, unspecified; Z85.118 Personal history of other malignant neoplasm of bronchus and lung
CPT/HCPCS: 82565; 84520; 71260; 36415; Q9967

== ENCOUNTER 2024-01-05 10:09 | Day surgery (SDC) | payer OTHER ==
[2024-01-04 09:54] VITALS: BMI 23.9
[~2024-01-05 10:09] MED LIST changes: -HYDROmorphone 1 MG/ML 1 ML SYRINGE IVP PRN; +LIDOCAINE 1% (10MG/ML) FOR IV START INTRADERMA PRN; -MOXIFLOXACIN HCL 0.5% DROPS 3 ML BTL OP ONE; -TETRACAINE 0.5% OPHTH (PF) DROPS 4 ML BTL OP ONE; -TIMOLOL 0.5% OPHTH DROPS 5 ML BTL OP ONE
[2024-01-05] MEDS: IV FLUID CONTINUATION 1,000 ML IV ONE (10:45)
[2024-01-05 11:19] VITALS: RESP 16; TEMP 97.4
[2024-01-05] MEDS: LACTATED RINGERS 1,000 ML IV SCH (11:45)
[2024-01-05] MEDS ORDERED: PROPOFOL 10 MG/ML 20 ML VIAL IV ONE (12:09)
[2024-01-05] MEDS ORDERED: LIDOCAINE 1% INJ 10MG/ML (20 ML MDV) ONE (12:09)
[2024-01-05] MEDS: LIDOCAINE 2% URO-JET JELLY 5 ML KIT MISCELLANE ONE (12:15)
[2024-01-05] MEDS: LIDOCAINE 2% INJ 20 MG/ML INTRATRACH ONE (12:15)
[2024-01-05 12:42] VITALS: BP 132/65; PULSE 52
--- NOTE | 2024-01-05 19:32 | OP ---
OPERATIVE REPORT DATE OF SERVICE : PROCEDURES PERFORMED: Bronchoscopy with endobronchial biopsies of right upper lobe endobronchial lesion, brushings of right upper lobe endobronchial lesion, bronchoalveolar lavage of the posterior apical segment of the right upper lobe. PREOPERATIVE DIAGNOSIS: Hemoptysis, right upper lobe mass. POSTOPERATIVE DIAGNOSIS: Hemoptysis, right upper lobe mass. ANESTHESIA USED: The patient was given IV conscious sedation. DESCRIPTION OF PROCEDURE: The patient was prepared according to the bronchoscopy protocol. He was brought into the bronchoscopy suite, placed in the supine position, a Ventimask was applied over the stoma. Then, we monitored his O2 saturation continuously, blood pressure was intermittently monitored, and cardiac rhythm was continuously monitored. After adequate IV conscious sedation, the bronchoscope was advanced through the stoma down to the area of the andria. Thorough examination was done of the right upper lobe, right middle lobe, right lower lobe, left upper lobe lingula and left lower lobe. There was evidence of old dried blood noted on the mucosa, but there was no evidence of any active bleeding noted in the airways. Then, the right upper lobe was examined thoroughly, and there was evidence of what seems to be an endobronchial tumor in the posterior apical portion of the right upper lobe/segment, multiple endobronchial biopsies were done of the area, brushings of the area was done and BAL of the right upper lobe area was done. Specimen sent for different diagnostic studies. Procedure was well tolerated, no complications, family updated on his condition, the patient was advised to stay off Eliquis. The patient has been on Eliquis and he was having frequent episodes of hemoptysis which needs to be on hold for now. MMODL / IJN: [id number] /
[2024-01-06 06:18] LABS: Appearance,BF Bloody (Clear); RBC, Body Fluid 26000 /UL (0-2000)
[2024-01-06 09:07] LABS: Nucleated Cells, Body Fluid 248 /UL
== END 2024-01-05 13:26 | disposition home or self-care (01) ==
LOC: ORWHC2ENDO 10:09
PROVIDERS: ATTEND Internal Medicine
DX: R91.1 Solitary pulmonary nodule (principal); R04.2 Hemoptysis; I10 Essential (primary) hypertension; E78.5 Hyperlipidemia, unspecified; I48.91 Unspecified atrial fibrillation; E07.9 Disorder of thyroid, unspecified; N42.9 Disorder of prostate, unspecified; Z79.01 Long term (current) use of anticoagulants; Z79.899 Other long term (current) drug therapy; Z79.890 Hormone replacement therapy; Z85.89 Personal history of malignant neoplasm of other organs and systems; Z85.118 Personal history of other malignant neoplasm of bronchus and lung
CPT/HCPCS: 88104; 88108; 88305; 89050; 87070; 87205; 87116; 87102; 87077; 87186; 87206; 31625; 31623; 31624; J2003 ×2; J2704

== ENCOUNTER → 2024-01-12 | Outpatient (CLI) | payer OTHER ==
--- NOTE | 2024-01-17 12:56 | PE ---
EXAMINATION TYPE: PET CT fusion skull to thigh DATE OF EXAM: 01/12/2024 CLINICAL INDICATION:Male, 78 years old with history of C34.11 LUNG CANCER; TECHNIQUE: Following the intravenous administration of 11.1 mCi of F-18 FDG, whole body images are performed from the skull base to the midthigh. Images are reviewed on the computer in the coronal, a xial, and sagittal planes. Reconstructed rotating images are created on independent workstation and reviewed on the computer. A non-contrast CT is performed in conjunction with the PET scan. Glucose level 92 mg/dL CT DLP: 6:15 mGycm, Automated exposure control for dose reduction was used. COMPARISON: CT 12/23/2023, PET/CT no recent, MRI: None FINDINGS: Mediastinal SUV mean is 1.8. Hepatic parenchyma SUV mean is 2.3. SKULL BASE AND NECK: Osseous uptake, No additional suspicious radiotracer activity. CHEST, MEDIASTINUM, AND HILAR REGION: * Right low paratracheal lymph node measuring 10 mm Max SUV 38.8 * Right pulmonary hilum lymph node max SUV 34.5 * 3.2 cm mass in the right lung apex max SUV 39 ABDOMEN AND PELVIS: Possible lymph node superior to the pancreatic tail max SUV 6.5. This is near carpal vessels exact et iology uncertain. Possibly additional site of metastatic disease. MUSCULOSKELETAL STRUCTURES: Suspicious uptake identified examples include: * Left C1 vertebral body max SUV 9.4 * Right scapula max SUV 13.3. * Left rib 3 max SUV 10.5. * Scattered vertebral body uptake including T2 vertebral body max SUV 9.6 T9 vertebral body max SUV 11.4 T10 vertebral body max SUV 11.3 among others * Right rib Meaghan V 10.6. * Right iliac bone max SUV 10.3. * Left iliac bone max SUV 13.3 * Left superior pubic ramus max SUV 9.[address]: Arterial vasculature including the coronary arteries and carotid bifurcations. Tracheostomy changes noted PEG tube in place. Left fat-containing inguinal hernia. Prostatomegaly. IMPRESSION: 1. Right upper lung mass intense uptake with metastatic disease to the osseous structures and medias tinum. 2. Indeterminate uptake superior to the pancreatic tail multiple vessels are in this region. Possibl y representing lymph node. Attention follow-up imaging. [facility], , 01/17/2024 12:54 PM
== END | disposition home or self-care (01) ==
LOC: RADPETMAIN 11:30
PROVIDERS: ATTEND Radiology Radiation Oncology
DX: Z08 Encounter for follow-up examination after completed treatment for malignant neoplasm (principal); C34.11 Malignant neoplasm of upper lobe, right bronchus or lung; R91.8 Other nonspecific abnormal finding of lung field; K40.90 Unilateral inguinal hernia, without obstruction or gangrene, not specified as recurrent; N40.0 Benign prostatic hyperplasia without lower urinary tract symptoms; Z85.118 Personal history of other malignant neoplasm of bronchus and lung; Z85.21 Personal history of malignant neoplasm of larynx; Z92.3 Personal history of irradiation
CPT/HCPCS: 78815; A9552

== ENCOUNTER → 2024-02-02 | Outpatient (CLI) | payer OTHER ==
--- NOTE | 2024-02-03 19:33 | MR ---
EXAMINATION TYPE: MR brain wo/w con DATE OF EXAM: 02/02/2024 2:00 PM COMPARISON: None. CLINICAL INDICATION: Male, 78 years old with history of C34.11 MALIGNANT NEOPLASM OF UPPER LOBE, RIGH T BRO, Lung and Throat cancer TECHNIQUE: Multiplanar, multiecho imaging on a 3.0 Isabella magnet is performed through the brain. Stud y is performed within 24 hours of arrival to the hospital.Multiplanar, multiecho imaging on a 3.0 Joan la magnet is performed through the knee. IV Contrast: 7 mL Gadobutrol (None, if empty) FINDINGS: The craniovertebral junction is normal. The pituitary is normal. Diffusion-weighted imaging is performed. There is a tiny hyperintensity within the cortex of the rig ht parietal lobe. This is hypointense on T1 signal. On postcontrast T1-weighted images of small ring enhancement is evident suggesting neoplasm should be considered. Significant vasogenic edema is not e vident however. Series 09/21/2013, series 303 image 184. Differential diagnosis could include small c ortical infarct Patchy periventricular white matter hyperintensity is present on T2 and inversion recovery weighted s equences. Ventricles and sulci are appropriate for the patient age. No suspicious enhancement is otherwise evident. IMPRESSION: 1. A 0.7 cm ring enhancement in the right parietal cortex hyperintense on diffusion may be a solitary metastatic lesion. Infarct less likely within the differential [facility], , 02/03/2024 7:31 PM
== END | disposition home or self-care (01) ==
LOC: RADMRIMAIN 11:54
PROVIDERS: ATTEND Radiology Radiation Oncology
DX: C34.11 Malignant neoplasm of upper lobe, right bronchus or lung (principal); C34.01 Malignant neoplasm of right main bronchus
CPT/HCPCS: 70553; A9585

== ENCOUNTER 2024-02-14 13:11 | Emergency (ER) | payer OTHER ==
--- NOTE | 2024-02-14 14:33 | ED ---
Back Pain HPI - General Chief Complaint: Back Pain/Injury Stated Complaint: constipation Time Seen by Provider: 02/14/24 13:30 Source: patient, RN notes reviewed Mode of arrival: ambulatory Limitations: language barrier - History of Present Illness Initial Comments: 78-year-old male presents emergency department complaint of constipation. He states that he had good bowel movement in 2 weeks. Patient states that he feels bloated, distended he is passing gas. Patient denies any fevers or chills. Patient denies any recent abdominal procedures. Patient denies any other associated symptoms. - Related Data Home Medications Medication Instructions Recorded Confirmed Folic Acid 1 mg PO DAILY 02/03/16 01/05/24 Apixaban [Eliquis] 5 mg PO BID 01/09/22 01/05/24 Sodium Chloride 0.65% Nasal [Deep 2 spr NASAL BID 01/09/22 01/05/24 Sea (Saline)] Chlorhexidine Gluconate [Periogard] 15 ml PO HS 04/05/23 01/05/24 Cholecalciferol [Vitamin D3 (10 10 mcg PO DAILY 04/05/23 01/05/24 Mcg = 400 Iu)] Lactose-Reduced Food/Fiber [Jevity 250 ml PO TID@0800,1300,1700 04/05/23 01/05/24 1.2 Ever Liquid] Levothyroxine Sodium [Synthroid] 100 mcg PO DAILY 04/05/23 01/05/24 Metoprolol Tartrate [Lopressor] 25 mg PO BID 04/05/23 01/05/24 Terazosin HCl 10 mg PO HS 04/05/23 01/05/24 Thiamine [Vitamin B-1] 100 mg PO DAILY 04/05/23 01/05/24 Amiodarone [Cordarone] 100 mg PO BID 01/04/24 01/05/24 Rosuvastatin Calcium 5 mg PO DAILY 01/04/24 01/05/24 Allergies Allergy/AdvReac Type Severity Reaction Status Date / Time No Known Allergies Allergy Verified 02/14/24 13:21 Review of Systems ROS Statement: Those systems with pertinent positive or pertinent negative responses have been documented in the HPI. ROS Other: All systems not noted in ROS Statement are negative. Past Medical History Past Medical History: Atrial Fibrillation, Cancer, Eye Disorder, Hyperlipidemia, Hypertension, Prostate Disorder, Thyroid Disorder Additional Past Medical History / Comment(s): artificial voice box, throat ca, lung ca, hx of radiation, occasional SOB, cataract both eyes History of Any Multi-Drug Resistant Organisms: None Reported Additional Past Surgical History / Comment(s): total laryngectomy, bx of lung nodule, BL cataract, PEG tube [facility] because food got stuck in his throat pt had EGD done told him he had a blockage in his throat and he needed a PEG Pt has a protatic tube in his trachy prior. peg placed 2022. colonoscopy,egd Past Anesthesia/Blood Transfusion Reactions: No Reported Reaction Additional Past Anesthesia/Blood Transfusion Reaction / Comment(s): has had laryngectomy Past Psychological History: No Psychological Hx Reported Smoking Status: Former smoker - Past Family History Mother Family Medical History: Cancer Additional Family Medical History / Comment(s): lung General Exam Limitations: no limitations, language barrier General appearance: alert, in no apparent distress Head exam: Present: atraumatic, normocephalic, normal inspection Eye exam: Present: normal appearance, PERRL, EOMI. Absent: scleral icterus, conjunctival injection, periorbital swelling ENT exam: Present: normal exam, normal oropharynx, mucous membranes moist Neck exam: Present: normal inspection, full ROM. Absent: tenderness, meningismus, lymphadenopathy Respiratory exam: Present: normal lung sounds bilaterally. Absent: respiratory distress, wheezes, rales, rhonchi, stridor Cardiovascular Exam: Present: regular rate, normal rhythm, normal heart sounds. Absent: systolic murmur, diastolic murmur, rubs, gallop, clicks GI/Abdominal exam: Present: soft, tenderness, normal bowel sounds. Absent: distended, guarding, rebound, rigid Course Vital Signs 02/14/24 02/14/24 02/14/24 13:15 16:56 18:01 Temperature 98.3 F 98.0 F Pulse Rate 64 60 70 Respiratory 20 15 18 Rate Blood Pressure 168/66 148/70 162/69 O2 Sat by Pulse 97 96 94 L Oximetry Medical Decision Making - Medical Decision Making Was pt. sent in by a medical professional or institution (, PA, ROLL SHEETING CUTTER, urgent care, hospital, or assisted...) When possible be specific @ -No Did you speak to anyone other than the patient for history (EMS, parent, family, police, friend...)? What history was obtained from this source @ -No Did you review nursing and triage notes (agree or disagree)? Why? @ -I reviewed and agree with nursing and triage notes Were old charts reviewed (outside hosp., previous admission, EMS record, old EKG, old radiological studies, urgent care reports/EKG's, assisted records)? Report findings @ -No old charts were reviewed Differential Diagnosis (chest pain, altered mental status, abdominal pain women, abdominal pain men, vaginal bleeding, weakness, fever, dyspnea, syncope, headache, dizziness, GI bleed, back pain, seizure, CVA, palpatations, mental health, musculoskeletal)? @ -Differential Abdominal Pain Men: Appendicitis, cholecystitis, diverticulosis, ischemic bowel, pancreatitis, hepatitis, UTI, gastroenteritis, AAA, incarcerated hernia, bowel obstruction, constipation, inflammatory bowel, hepatitis, peptic ulcer disease, splenic infarction, perforated viscus, testicular torsion, this is not meant to be an all-inclusive list EKG interpreted by me (3pts min.). @ -None X-rays interpreted by me (1pt min.). @ -X-ray KUB shows evidence of constipation no obstruction CT interpreted by me (1pt min.). @ -None done U/S interpreted by me (1pt. min.). @ -None done What testing was considered but not performed or refused? (CT, X-rays, U/S, labs)? Why? @ -None What meds were considered but not given or refused? Why? @ -None Did you discuss the management of the patient with other professionals (professionals i.e. , PA, ROLL SHEETING CUTTER, lab, RT, psych nurse, social media content specialist, sheet rock taper, teacher, medical officer, director of casework)? Give summary @ -No Was smoking cessation discussed for >3mins.? @ -No Was critical care preformed (if so, how long)? @ -No Were there social determinants of health that impacted care today? How? (Homelessness, low income, unemployed, alcoholism, drug addiction, transportation, low edu. Level, literacy, decrease access to med. care, fci, rehab)? @ -No Was there de-escalation of care discussed even if they declined (Discuss DNR or withdrawal of care, Hospice)? DNR status @ -No What co-morbidities impacted this encounter? (DM, HTN, Smoking, COPD, CAD, Cancer, CVA, ARF, Chemo, Hep., AIDS, mental health diagnosis, sleep apnea, morbid obesity)? @ -None Was patient admitted / discharged? Hospital course, mention meds given and route, prescriptions, significant lab abnormalities, going to OR and other pertinent info. @ -[Discharge patient felt improved after enema. Patient discharged in stable condition. Undiagnosed new problem with uncertain prognosis? @ -No Drug Therapy requiring intensive monitoring for toxicity (Heparin, Nitro, Insulin, Cardizem)? @ -No Were any procedures done? @ -No Diagnosis/symptom? @ -Constipation Acute, or Chronic, or Acute on Chronic? @ -Acute Uncomplicated (without systemic symptoms) or Complicated (systemic symptoms)? @ -Uncomplicated Side effects of treatment? @ -No Exacerbation, Progression, or Severe Exacerbation? @ -No Poses a threat to life or bodily function? How? (Chest pain, [place], [place], pneumonia, PE, COPD, DKA, ARF, appy, cholecystitis, CVA, Diverticulitis, Homicidal, Suicidal, threat to staff... and all critical care pts) @ -No Disposition Clinical Impression: Constipation Disposition: HOME SELF-CARE Condition: Stable Instructions (If sedation given, give patient instructions): Constipation (ED) Additional Instructions: Please return to the Emergency Department if symptoms worsen or any other concerns. Is patient prescribed a controlled substance at d/c from ED?: No Referrals: [facility],Clinic [Primary Care Provider] - 1-2 days Time of Disposition: 17:28
--- NOTE | 2024-02-14 14:47 | XR ---
EXAMINATION TYPE: XR KUB DATE OF EXAM: 02/14/2024 2:25 PM COMPARISON: 02/17/2023 CLINICAL INDICATION: Male, 78 years old with history of Constipation, , FINDINGS: Gassy small bowel and colon with moderate stool throughout. A PEG tube is noted. No evidence for free intraperitoneal air below the hemidiaphragms. IMPRESSION: Very gassy bowel throughout with overall moderate stool burden. [facility], , 02/14/2024 2:45 PM
[2024-02-14 18:03] VITALS: BP 162/69; PULSE 70; RESP 18; TEMP 98
== END 2024-02-14 18:05 | disposition home or self-care (01) ==
LOC: EC 13:11
DX: K59.00 Constipation, unspecified (principal); Z87.891 Personal history of nicotine dependence
CPT/HCPCS: 74018; 99283